=== PATIENT | male | born 1950 | race African-American/Black ===

== ENCOUNTER → 2020-03-14 09:40 | Outpatient (BNVA) | payer SELFPAY | PROVIDERS: PCP Internal Medicine; Visit Provider Internal Medicine Cardiovascular Disease | DX: R06.02 Shortness of breath (principal); I10 Essential (primary) hypertension; E78.5 Hyperlipidemia, unspecified; R94.31 Abnormal electrocardiogram [ECG] [EKG] | CPT/HCPCS: 93005; 99212 ==

== ENCOUNTER → 2020-03-21 07:16 | Outpatient (REF) | payer MEDICARE, SELFPAY ==
--- NOTE | ~2020-03-21 | NM_ITS ---
Lexiscan Myocardial perfusion study Indication: Shortness of breath, hypertension, abnormal EKG, assess for coronary disease and ischemia Technique: The patient was brought in for a Lexiscan perfusion study on 03/21/2020 and was injected 0.4 mg of Lexiscan intravenously. Within a minute of this injection 30 mCi of sestamibi was given intravenously. Images were obtained using the SPECT gamma camera interlaced with the gating device. Images were obtained in supine position. Resting perfusion study was performed on 03/22/2020. Patient was administered 30 mCi of sestamibi intravenously at rest. Images were then obtained in supine position. Total DLP 82mGy-cm. Images were processed with the software and compared side to side in short axis, horizontal long axis and vertical long axis views. Findings: Raw acquisition reviewed. The stress perfusion study showed diminished tracer uptake along the basal inferior wall but otherwise unremarkable. With CT attenuation correction this improves significantly suggestive of diaphragmatic artifact. The gated study shows normal LV systolic function with calculated LVEF of 65%. LV cavity is normal in size. The gated study shows normal wall thickening and contraction of segments. Resting study shows no significant perfusion abnormality. Gating at rest reveals normal wall motion with ejection fraction at 67%. The findings are consistent with no definite reversible or fixed perfusion defects. NM/NM cardiolite stress test Impression: 1. Myocardial perfusion imaging study shows likely normal myocardial perfusion. No definitive evidence of any ischemia or infarction. 2. Gated LVEF is 65% during stress and 67% during rest. 3. Transient ischemic dilatation not present. EKG component of the test reported separately.
--- NOTE | 2020-03-21 07:21 | CA_ITS ---
Transthoracic Echocardiogram Patient (Last, First, Middle): Joshua Barnhart C Gender: Male Date of : 1950 Age: 70 Procedure Date: 03/21/2020 Procedure Type: Transthoracic Echocardiogram Location: OP Height: 175.26 cm Weight: 89.81 kg BSA: 2.06 m2 Heart Rate: bpm BP: 116 / 56 mmHg Boxing Trainer: Referring MD: Vj Villarreal MD Symptoms: R94.31 - Abnormal electrocardiogram [ECG] [EKG] Study Quality: Fair ECG Rhythm: Sinus Conclusions: - The left ventricular systolic function is normal. The visually estimated ejection fraction is between 60-65%. - There is moderate septal and moderate basal asymmetric hypertrophy. - No obvious valvular pathology seen on this study. - Small pericardial effusion seen primarily over the left ventricle. Findings Left Ventricle Normal left ventricular cavity size. The left ventricular systolic function is normal. The visually estimated ejection fraction is between 60-65%. There is no evidence of regional wall motion abnormalities. E/E prime ratio is between 8 and 15 consistent with indeterminate filling pressures. Evidence suggests grade I (mild) diastolic dysfunction. There is moderate septal and moderate basal asymmetric hypertrophy. Right Ventricle Normal right ventricular cavity size and systolic function. Atria The left atrium is normal in size. The right atrium is normal in size. Aortic Valve There is a normal trileaflet aortic valve. There is no aortic valve stenosis. There is trace (trivial) aortic valve regurgitation. Mitral Valve The mitral valve appears normal. There is trace mitral valve regurgitation. There is no mitral valve stenosis. Pulmonic Valve The pulmonic valve was not well visualized. Tricuspid Valve Normal tricuspid valve structure. There is trace tricuspid valve regurgitation. The pulmonary artery systolic pressure is normal. Great Vessels The asc aorta is normal in size. Venous The inferior vena cava is normal in size and collapses greater than 50% with inspiration. Pericardium/Pleural Small pericardial effusion seen primarily over the left ventricle. Prior Study Comparison Changes noted compared to prior study dated: 05/26/2016. See comments on pericardial effusion. Recommendations, Care & Conclusions No obvious valvular pathology seen on this study. Measurements 2D Linear Measurements IVSd: 1.35 0.6-0.9/0.6-1.0 cm LVIDd: 4.56 3.9-5.3/4.2-5.9 cm LVIDd Index: 2.21 2.4-3.2/2.2-3.1 cm/m2 LVIDs: 2.68 2.0-3.6 cm LVPWd: 1.40 0.7-1.1 cm Ao Root: 3.10 2.1-3.5 cm LA Diam: 4.10 2.7-3.8/3.0-4.0 cm LAIDs Index: 1.99 1.5-2.3 cm/m2 LV Mass: 307.63 67-162/88-224 g LV Mass Index: 149.34 43-95/49-115 g/m2 LVOT Diam: 2.10 3.0+(-)1.3 cm 2D Systolic Function EF 4C: 47.70 >55% EF 2C: 52.30 >55% Mitral Valve MV Pk E: 0.81 MV PK A: 1.04 MV Decel Time: 201.00 E/A: 0.80 E'Lateral: 6.00 E'Medial: 5.13 E/E' Med: 15.80 E/E' Lat: 13.50 PHT: 59.00 MVA PHT: 3.73 Decel [place]: 4.04 Aortic Valve AoV Pk Perez: 1.15 AoV Mn Perez: 0.74 AoV VTI: 0.28 AoV Pk Grad: 5.00 Aov Mn Grad: 3.00 YUDITH Cont.VTI: 2.65 LVOT LVOT Pk Perez: 0.83 LVOT Mn Perez: 0.50 LVOT VTI: 0.22 LVOT Pk Grad: 3.00 LVOT Mn Grad: 1.00 LVOT Diam: 2.10 LVOT Area: 3.46 Diastolic Function MV Pk E: 0.81 MV Pk A: 1.04 E/A: 0.80 E'Medial: 5.13 E/E' Med: 15.80 E' Laterial: 6.00 E/E' Lat: 13.50 Tricuspid Valve TR Pk Perez: 1.70 TR Pk Grad: 12.00 RA Press: 3.00 RVSP: 15.00 Great Vessels Aorta Ao Root-2D: 3.10 2.0-3.7 cm Ao Asc: 2.70 2.1-3.4 cm Pulmonary Valve PV Pk Perez: 1.16 Peak PV Grad: 5.00 Updated in Other Vendor System with Status of Final Santos Finley MD electronically signed on 03/24/2020 12:08:14 PM with status of Final
--- NOTE | 2020-03-21 07:23 | CA_ITS ---
Acquisition Time: 2020-03-21 09:23:23 Total Exercise Time: 00:04:03 Test Indications: Abnormal ECG Medications: ATORVASTATIN DOXAZOSIN IRON Protocol: OBED Max HR: 115 BPM 76% of Pred: 151 BPM Max BP: 158/090 mmHG Max Work Load: 5.8 METS Exercise stress test with exercise 4 min 3 sec of Obed protocol with mild sob, no chest dicomfort, isolated PVC and rate related LBBB, with normotensive response to exercise, with nondiagnotic EKG for ischemia. Exercise stopped and pt assisted to sitting position. Testing change to pharmacological stress test while sitting and kicking his legs, without angina, with isolated PACs, with nondiagnostic EKG for ischemia. Nuclear images pending. Test reviewed with Dr Villarreal. Referred By: Vj Vilalrreal Overread By: JYOTHI FUCHS
== END ==
LOC: HO.CARD 07:16
PROVIDERS: PCP Internal Medicine; Visit Provider Internal Medicine Cardiovascular Disease
DX: I10 Essential (primary) hypertension (principal); R06.02 Shortness of breath; R94.31 Abnormal electrocardiogram [ECG] [EKG]; E78.5 Hyperlipidemia, unspecified
CPT/HCPCS: 78452; 93017; 93306; A9500; J0280; J2785

== ENCOUNTER → 2020-04-13 10:47 | Outpatient (BNVA) | payer MEDICARE, SELFPAY | PROVIDERS: PCP Internal Medicine; Visit Provider Nurse Practitioner Family | DX: R06.02 Shortness of breath (principal); I42.2 Other hypertrophic cardiomyopathy; R94.31 Abnormal electrocardiogram [ECG] [EKG]; I10 Essential (primary) hypertension; I45.4 Nonspecific intraventricular block | CPT/HCPCS: 99212 ==

== ENCOUNTER 2024-06-26 16:13 | Inpatient (IN) | payer MEDICARE, MEDICAID, SELFPAY ==
[2024-06-26] VITALS (7 sets, daily range): BP systolic 97–121; BP diastolic 60–76; PULSE 90–116; RESP 12–18; TEMP 36.2–37.3; O2SAT 97–100; BMI 19.5
--- NOTE | ~2024-06-26 | CT_ITS ---
CLINICAL HISTORY: unwitnessed fall CT head without contrast. COMPARISON: None FINDINGS: Mucosal retention cyst present within the left maxillary sinus. Mastoid air cells are clear. No calvarial fracture. Atherosclerotic intracranial vasculature. No evidence for mass or mass effect. No intracranial hemorrhage or abnormal extra-axial fluid collection. Basal ganglia mineralization present bilaterally. Chronic encephalomalacia within the right temporal lobe and lateral right frontal and parietal lobe consistent with a large right MCA territorial infarct. There is associated ex vacuo dilatation of the right lateral ventricle. Basilar cisterns are patent. No hydrocephalus. There are periventricular areas of low attenuation compatible with mild white matter small vessel disease. Posterior fossa appears unremarkable. IMPRESSION: 1. No acute intracranial findings. Specifically, no evidence of intracranial hemorrhage. This document has been electronically signed by: Howard Feliciano MD on 06/26/2024 19:07:20
--- NOTE | ~2024-06-26 | CT_ITS ---
CLINICAL HISTORY: elevated dimer, tachycardic CT angiography of the chest with IV contrast. 3D/MIP post processing reconstructions were performed. COMPARISON: None FINDINGS: Motion limits evaluation of the distal pulmonary arteries. No intraluminal filling defects within the main or lobar pulmonary arteries to suggest pulmonary embolism. No evidence of right heart strain. Visualized thyroid is unremarkable. No supraclavicular or axillary lymphadenopathy. Ascending aorta and main pulmonary artery are normal in caliber. Moderate pericardial effusion measuring 1.3 cm anteriorly. Cardiomegaly. Normal esophagus. No mediastinal lymphadenopathy. No pleural effusion. Minimal atelectasis along the lung bases. Trachea and central airways are clear. No significant bronchial wall thickening. No bronchiectasis. Hepatic cyst measuring 3.0 cm present within the right lobe. Flowing marginal osteophytes along the mid to lower thoracic spine. Normal vertebral body alignment. Vertebral body heights are maintained. No evidence of acute vertebral body injury. [place] right curvature of the midthoracic spine. Visualized bones of the shoulders appear intact. Degenerative changes of the bilateral shoulders. Sternum appears intact. Healed lateral left 5th rib fracture. IMPRESSION: 1. No evidence of pulmonary embolism within the main or lobar pulmonary arteries. Motion limits evaluation of the distal pulmonary arteries. 2. Moderate pericardial effusion. Cardiomegaly with coronary artery atherosclerosis. This document has been electronically signed by: Howard Feliciano MD on 06/26/2024 19:14:52
--- NOTE | ~2024-06-26 | CT_ITS ---
CLINICAL HISTORY: unwitnessed fall L neck pain CT cervical spine without contrast. COMPARISON: None FINDINGS: Straightening of the normal cervical lordosis. Vertebral body heights are maintained. Skull base and intracranial structures appear normal. Mild emphysema of the lung apices. Right upper lobe 3 mm pulmonary nodule (series 18, image 239) calcified plaque present at the carotid bulbs bilaterally. C2-C3: No significant neuroforaminal narrowing or spinal canal stenosis. C3-C4: Uncovertebral joint hypertrophy. Moderate right neural foraminal narrowing. C4-C5: Anterior marginal osteophytes. Facet joint arthrosis. No significant neural foraminal narrowing. C5-C6: Anterior marginal osteophytes. No significant neural foraminal narrowing. C6-C7: Anterior marginal osteophytes. No significant neural foraminal narrowing. IMPRESSION: 1. No evidence of acute injury to the cervical spine. 2. Straightening of the normal cervical lordosis, likely positional This document has been electronically signed by: Howard Feliciano MD on 06/26/2024 19:08:42
--- NOTE | ~2024-06-26 | CT_ITS ---
CLINICAL HISTORY: ? left hip fx on xr Two views of the left tibia and fibula. COMPARISON: XR pelvis and left hip dated 06/26/24 at 17:27 EDT FINDINGS: Contrast present within the urinary bladder. Marte catheter present within the urinary bladder. High-density fluid along the anterior aspect of the urinary bladder likely representing hematoma (series 3, image 52) no evidence of injury to the urinary bladder. Moderate atherosclerotic vascular calcifications. Extensive heterotopic ossification bridging of the superior aspect of the acetabulum and greater trochanter. There is fracturing of the heterotopic ossification along the greater trochanter with resorption along the fracture margins suggesting this is a chronic finding. Femoral head is seated within the acetabulum. Large sclerotic lesion within the posterior column of the acetabulum measuring 1.6 x 1.4 cm likely representing a bone island. Visualized bones of the pelvis appear intact. Left hip joint effusion present. IMPRESSION: 1. Small amount of blood products present along the anterior aspect of the lower pelvis adjacent to the urinary bladder. No evidence of injury to the urinary bladder. No source identified. 2. 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 There is fracturing of this ossification with resorption along the fracture margins suggesting this is a chronic finding. No definite acute fracture identified. Recommend comparison with prior imaging if available. 3. Left hip joint effusion. This document has been electronically signed by: Howard Feliciano MD on 06/26/2024 20:51:07
--- NOTE | ~2024-06-26 | XR_ITS ---
CLINICAL HISTORY: fall low back pain Four views of the lumbar spine. COMPARISON: None FINDINGS: Osteopenia. Evaluation of the lumbar spine on lateral imaging is limited secondary to osteopenia and overlapping structures. Five [id number]-[id number] lumbar type vertebral bodies. Normal vertebral body alignment. Vertebral body heights are maintained. No evidence of acute vertebral body injury. Vertebral disc space heights appear maintained within limits of study. Facet joint arthrosis along the lower lumbar spine. Small marginal osteophytes along the mid to lower lumbar spine. Visualized portions of the bones of the pelvis appear intact. IMPRESSION: 1. Technically limited exam with evaluation of the lumbar spine on lateral imaging obscured secondary to osteopenia and overlapping structures. 2. Within limits of study, no evidence of acute injury to the lumbar spine. 3. Moderate mid to lower lumbar spondylosis. This document has been electronically signed by: Howard Feliciano MD on 06/26/2024 18:44:15
--- NOTE | ~2024-06-26 | XR_ITS ---
CLINICAL HISTORY: fall Single view of the chest. COMPARISON: None FINDINGS: Cardiomegaly. Mild prominence of the central pulmonary vasculature likely exaggerated secondary to supine positioning. No consolidation. No pleural effusion. No pneumothorax. [place] right curvature of the lower thoracic spine. No acute fracture identified. IMPRESSION: 1. No consolidation. 2. Cardiomegaly. This document has been electronically signed by: Howard Feliciano MD on 06/26/2024 18:44:39
--- NOTE | ~2024-06-26 | XR_ITS ---
CLINICAL HISTORY: unwitnessed fall b l hip pain Single view of the pelvis. COMPARISON: None FINDINGS: Pelvic ring appears maintained. Pelvic phleboliths present. Sacrum appears intact. Degenerative changes of the partially visualized lower lumbar spine. Small ossification present along the greater trochanter of the left femur. IMPRESSION: 1. Likely displaced greater trochanteric fracture of the left femur. This document has been electronically signed by: Howard Feliciano MD on 06/26/2024 18:49:08
--- NOTE | ~2024-06-26 | CT_ITS ---
CLINICAL HISTORY: pain, lower abdomen pelvic CT abdomen and pelvis without contrast Comparison: None Findings: Beam hardening artifact and motion artifact throughout the exam. Minor atelectasis or scar at the left lower lung. Segment 2 liver 3.4 cm hypodensity is likely a cyst. Probable benign adenoma 1.8 cm left adrenal gland. Gallbladder and solid organs otherwise unremarkable. Gas and fluid throughout small bowel loops. There are postoperative changes of the small bowel including a patulous segment of small bowel in the pelvis up to 6.3 cm diameter image 70. No bowel wall thickening, pneumoperitoneum, or pneumatosis. Wldysgva-nn-hxayt amount of stool. Normal appendix. Urinary bladder moderately distended. Marte catheter adequately positioned. Small amount of debris within the urinary bladder seen within the contrast column on image 75:3 could be blood clot. In the space of Retzius there is a thin layer of slight hyperdensity best seen on image 81. There is also slight fat induration in the overlying low anterior abdominal wall. This could be acute or chronic. Heterotopic ossification between the left acetabulum and greater trochanter, as well as bilateral obturator regions within the pelvis suggesting prior injury. No acute fracture. Probable benign bone island 1.6 cm left posterior acetabulum. IMPRESSION: 1. In the space of [place]zius, anterior to a moderately distended bladder, there is a thin layer of slight hyperdensity along with similar hyperdensity in the low anterior abdominal wall. If this is acute, this could be hemorrhage. If chronic, this could be scarring. Correlate with pain or trauma in this area recently. 2. Dnalqcgs-zp-ngjfj amount of stool noted along with a nonspecific small-bowel gas and fluid pattern. There could be an ileus. No findings to suggest bowel obstruction. Follow-up as needed. 3. Small amount of debris within the urinary bladder. Possible blood clot. 4. Additional findings as above. This document has been electronically signed by: Yung Parker MD on 06/27/2024 00:33:24
--- NOTE | 2024-06-26 16:35 | ECG_ITS ---
Test Reason : FALL Blood Pressure : */* mmHG Vent. Rate : 115 BPM Atrial Rate : 115 BPM P-R Int : 156 ms QRS Dur : 142 ms QT Int : 366 ms P-R-T Axes : 81 -86 73 degrees QTcB Int : 506 ms Sinus tachycardia Left axis deviation Non-specific intra-ventricular conduction block Possible Lateral infarct , age undetermined Abnormal ECG When compared with ECG of 28-Apr-2016 14:38, Questionable change in QRS duration Borderline criteria for Lateral infarct are now Present Referred By: Rosa M Hugo Electronically Signed By:
--- NOTE | 2024-06-26 16:38 | ED.FALL ---
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 Per facility, RN was called to patient's room and on arrival found patient lying on the floor on his left side with his right leg towards his chest. He was noted to have pain to the right hip and leg, was reportedly screaming in pain however was unable to describe the incident due to his dementia. Unknown down time. Takes baby aspirin daily. Not on anticoagulation. Patient is bed bound at baseline. On arrival in the ED, patient reports pain to bilateral hips, more so to the left. He also endorses left-sided neck pain. Presents in cervical collar. He tells me that he recalls the fall, does not believe he struck his head however history is quite limited due to his baseline dementia. Related Data Home Medications ?Medication ?Instructions ?Recorded ?Confirmed cholecalciferol (vitamin D3) 25 25 mcg PO DAILY 03/14/20 06/26/24 mcg (1,000 unit) capsule acetaminophen 325 mg tablet 650 mg PO Q6H PRN Pain (Scale 06/26/24 06/27/24 (Tylenol) Score 1-3) amlodipine 10 mg tablet 10 mg PO DAILY 06/26/24 06/27/24 baclofen 10 mg tablet 10 mg PO TID 06/26/24 06/27/24 carvedilol 3.125 mg tablet 3.125 mg PO BID 06/26/24 06/26/24 docusate sodium 100 mg capsule 100 mg PO DAILY 06/26/24 06/27/24 (Colace) mirtazapine 7.5 mg tablet 7.5 mg PO DAILY 06/26/24 06/27/24 risperidone 0.5 mg tablet 0.5 mg PO BID 06/26/24 06/27/24 rosuvastatin 40 mg tablet 40 mg PO BEDTIME 06/26/24 06/27/24 tamsulosin 0.4 mg capsule 0.8 mg PO DAILY 06/26/24 06/26/24 thiamine HCl (vitamin B1) 100 mg 100 mg PO DAILY 06/26/24 06/26/24 tablet tramadol 50 mg tablet 50 mg PO Q8H PRN Pain (Scale Score 06/26/24 06/27/24 4-6) aspirin 81 mg tablet,delayed 81 mg PO DAILY 06/27/24 06/27/24 release bisacodyl 10 mg rectal suppository 10 mg IN Q8H PRN Constipation 06/27/24 06/27/24 magnesium hydroxide 400 mg/5 mL 30 ml PO DAILY PRN Constipation 06/27/24 06/27/24 oral suspension (Milk of Magnesia) multivitamin 1 tab PO DAILY 06/27/24 06/27/24 ondansetron HCl 4 mg tablet 4 mg PO Q4H PRN Nausea And Vomiting 06/27/24 06/27/24 psyllium husk 3 gram/3 gram oral 3 g PO DAILY Constipation 06/27/24 06/27/24 powder sodium phosphates 19 gram-7 118 ml IN DAILY PRN Constipation 06/27/24 06/27/24 gram/118 mL enema (Fleet Enema) Allergies Allergy/AdvReac Type Severity Reaction Status Date / Time No Known Allergies Allergy Verified 06/26/24 16:31 [No Known Allergies*] Review of Systems Review of Systems: Yes all other systems are reviewed and are negative PMFSH Past Medical History Source: old records reviewed and nursing notes reviewed Medical History Hyperlipidemia Abnormal EKG HTN (hypertension) Prostate cancer Bowel obstruction Family History Family History Mother No problems noted. Father HTN (hypertension) Social History Social History Alcohol intake: never Patient Tobacco Use Status: Never used Tobacco Smoked in Last 30 Days: No Use of substances other than those prescribed or required for medical reasons: No Advance Directives: No Advance Directives Information Provided: No Do you have a plan to hurt others: No Plan Nutrition Risks: No Nutritional Risk Physical Exam Vital Signs: Vital Signs: Last Vital Signs Temp 98.7 F 06/27/24 06:01 Pulse 110 H 06/27/24 06:01 Resp 14 06/27/24 06:01 BP 116/62 06/27/24 06:01 Pulse Ox 98 06/27/24 06:01 O2 Del Method Room Air 06/27/24 06:01 BMI result Body Mass Index 19.5 Tachycardic, vitals otherwise WNL General: chronically ill appearing, cachectic Skin: Warm, dry, intact. No rashes or lesions. Head: Normocephalic, atraumatic. no battles sign, no raccoon eyes, no palpable skull fx or hematoma EENT: Hearing is intact b/l. Conjunctiva clear. PERRLA. EOM intact. Moist mucous membranes.? Neck: +in cervical collar Cardiac: Chest wall symmetric. RRR Lungs: Normal respiratory effort without accessory muscle use. CTA bilaterally Abdomen: Soft, non-tender, non-distended. no rebound tenderness or guarding Back: +ttp along midline lumbar spine without step off deformity. no paraspinal tenderness. Ext: +extremities contracted, LE atrophic, noted ttp over both hips (L>R) without palpable deformity or crepitus. no overlying bruising/ skin changes. Neuro: alert, oriented to self Course Course Course Narrative: 1800 -- CBC without leukocytosis or left shift. Normocytic anemia, h&h above transfusion threshold. chemistry without acute electrolyte abnormality requiring intervention. renal function appears to be around baseline CKD. random glucose 197. liver function and lipase wnl. ck wnl at 97 - no rhabdo. trop wnl at 5.7 however will repeat for delta. EKG showing sinus tachycardia, rate of 115. UA positive for nitrites, large leukocyte esterase, 4+ urine bacteria, 0-2 squamous epithelial cells. Will treat for urinary tract infection. D-dimer elevated to 378. Age adjusted D-dimer cutoff 365. as patient is bed bound and not on AC, CT angio chest ordered to r/o PE. CT head/c spine pending. xr pelvis, lumbar spine and chest pending. > IV Tylenol ordered for discomfort 1915 -- cxr without infiltrate or consolidation. xr lumbar spine without acute compression fracture. pelvic xr concerning for left trochanter fracture. Given xr limited by patient's positioning, unable to tell if this is a true fracture. Spoke with ortho ORALIA Lucero who has recommended CT left hip for further characterization. this has been ordered. OBS negative. CT head/brain without bleed. ct cervical spine without fracture. cervical collar removed. > Patient stable at the end of my shift. Sign out given to Shahnaz BARTON pending CTA chest, ct hip, and disposition. Reevaluation(s) Reevaluation #1: I Dawna Marte PA-C have accepted care of the patient and signed out pending imaging, orthopedic consult and final disposition at this point patient found to have a urinary tract infection, he is afebrile, he has a CTA of the chest pending, he has a CT of the hip pending given there was concern for hip fracture, the x-ray read with somewhat indeterminate. We are having to medicate the patient and tie his legs together in order for him to have the CT scan; secondary to his lower extremity contractures. the patient was given a p.o. dose of Ceftin, this may not be adequate coverage given he has a chronic indwelling Marte, I am adding on blood cultures, lactic, his temp is increasing it is 99.3 rectally, we will start ceftriaxone, we do not have prior urine cultures for guidance on resistance pattern. CT hip pelvis: MPRESSION: 1. Small amount of blood products present along the anterior aspect of the lower pelvis adjacent to the urinary bladder. No evidence of injury to the urinary bladder. No source identified. 2. 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 There is fracturing of this ossification with resorption along the fracture margins suggesting this is a chronic finding. No definite acute fracture identified. Recommend comparison with prior imaging if available. 3. Left hip joint effusion. CTA chest:MPRESSION: 1. No evidence of pulmonary embolism within the main or lobar pulmonary arteries. Motion limits evaluation of the distal pulmonary arteries. 2. Moderate pericardial effusion. Cardiomegaly with coronary artery atherosclerosis. Reevaluation #2: Speaking with the hospitalist about admission, Dr. Leos, he wants a CT abdomen and pelvis CT abdomen and pelvis:IMPRESSION: 1. In the space of Retzius, anterior to a moderately distended bladder, there is a thin layer of slight hyperdensity along with similar hyperdensity in the low anterior abdominal wall. If this is acute, this could be hemorrhage. If chronic, this could be scarring. Correlate with pain or trauma in this area recently. 2. Idkxtyry-kv-zhwhd amount of stool noted along with a nonspecific small-bowel gas and fluid pattern. There could be an ileus. No findings to suggest bowel obstruction. Follow-up as needed. 3. Small amount of debris within the urinary bladder. Possible blood clot. 4. Additional findings as above. Consultations Consultation #1: per Dr. Finley .... Nothing to do, order an echo for the morning Time: 21:56 Consultation #2: I touched base again with the Aristides Quin from orthopedic service, there were no acute fractures, nothing to do. The patient can follow up with the orthopedic service as needed as an outpatient Medications Administered Generic Name Dose Route Start Last Admin Trade Name Freq PRN Reason Stop Dose Admin Risperidone 0.5 mg 06/27/24 01:15 06/27/24 04:21 Risperidone 0.5 Mg Tablet PO Not Given BID DIXON Discontinued Medications Generic Name Dose Route Start Last Admin Trade Name Freq PRN Reason Stop Dose Admin Ceftriaxone Sodium 2 gm 06/26/24 22:13 06/26/24 22:38 Ceftriaxone Sodium 2 Gm Vial IVPUSH 06/26/24 22:14 2 gm ONCE ONE Administration Cefuroxime Axetil 250 mg 06/26/24 18:04 06/26/24 18:09 Cefuroxime Axetil 250 Mg Tablet PO 06/26/24 18:05 250 mg ONCE ONE Administration Acetaminophen 1,000 mg in 100 mls @ 400 mls/hr 06/26/24 18:01 06/26/24 18:50 Ofirmev IV 06/26/24 18:15 Infused ONCE ONE Infusion Iohexol 100 ml 06/26/24 18:01 06/26/24 18:03 Iohexol 350 Mg/Ml 100 Ml Infus..Btl IV 06/26/24 18:02 65 ml ONCE ONE Administration Midazolam HCl 4 mg 06/26/24 19:15 06/26/24 19:20 Midazolam Hcl 2 Mg/2 Ml Vial IVPUSH 06/26/24 19:16 4 mg ONCE ONE Administration Medical Decision Making Medical Decision Making MDM Narrative: 74-year-old male with pmhx significant for anemia, CKD, HTN, HLD, 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 Patient is tachycardic, vitals are otherwise WNL. Differential diagnosis includes hip fracture, dislocation, contusion, MSK sprain/strain, vertebral compression fracture, cervical fracture/subluxation, ICH, skull frature Concern for ACS v arrhythmia v PE. PERC 2 (tachycardia, age), urinary tract infection, pneumonia, rhabdomyolysis Plan for labs, trop/ddimer, UA, CXR, lumbar xr, xr hips/pelvis, EKG, re-valuation. Differential Diagnosis Differential Diagnoses: The differential diagnosis associated with the presentation includes As above Admission/Observation Consideration of admission/observation: Escalation of care including admission/observation considered patient admitted to medicine Consult Healthcare Provider Management of the patient was discussed with: [employer] Department Supervisor (fernando lucero) Lab Data MDM Lab Attestation statement: I reviewed the patient's lab results. as above. 06/27/24 04:42 06/27/24 04:42 Labs: Lab Results 06/26/24 06/26/24 06/26/24 Range/Units 16:57 17:06 19:02 WBC 8.8 (4.8-10.8) X10*3/uL RBC 3.55 L (4.60-5.80) X10*6/uL Hgb 9.5 L (14.0-18.0) g/dl Hct 29.3 L (42.0-52.0) % MCV 82.5 (80.0-98.0) fL MCH 26.8 L (27.0-33.0) pg MCHC 32.4 (31.0-36.0) g/dl RDW 16.9 H (11.0-16.0) % Plt Count 339 (160-400) X10*3/uL MPV 9.9 (9.4-12.4) fL Immature Gran % (Auto) 0.3 (0.0-0.4) % Neut % (Auto) 73.8 H (45-73) % Lymph % (Auto) 14.3 L (20-40) % [place] % (Auto) 8.4 (2-11) % Eos % (Auto) 2.7 (0-4) % Baso % (Auto) 0.5 (0-2) % Lymph # (Auto) 1.3 (1.2-4.9) X10*3/uL [place] # (Auto) 0.7 (0.1-1.2) X10*3/uL Eos # (Auto) 0.2 (0.0-0.4) X10*3/uL Baso # (Auto) 0.0 (0.0-0.2) X10*3/uL Abs Immat Gran (auto) 0.03 (0.00-0.03) X10*3/uL Absolute Neuts (auto) 6.5 (2.0-8.3) x10*3/uL Absolute Nucleated RBC 0.000 (0.0-0.012) X10*3/uL Nucleated RBC % (auto) 0.0 (0.0-0.2) /100WBC D-Dimer High Sensitivty 378 NG/ML Sodium 138 (135-145) mmol/L Potassium 4.1 (3.3-5.1) mmol/L Chloride 107 (96-108) mmol/L Carbon Dioxide 21 L (22-29) mmol/L Anion Gap 14 (12-20) BUN 21 H (9-16) mg/dL Creatinine 0.70 (0.5-1.4) mg/dL Estim Creat Clear Calc 79.4 Estimated GFR > 60 Random Glucose 197 H (60-115) mg/dL Lactic Acid (0.5-2.0) mmol/L Calcium 9.6 (8.4-10.2) mg/dL Magnesium 2.1 (1.6-2.6) mg/dL Total Bilirubin 0.3 (0.0-1.0) mg/dL AST 34 (5-37) U/L ALT 51 H (0-40) U/L Alkaline Phosphatase 109 (39-117) U/L Total Creatine Kinase 97 (38-174) U/L Troponin I High Sens 5.7 (<3.5-35.0) ng/L Total Protein 6.6 (6.5-8.0) g/dL Albumin 3.4 L (3.5-5.0) g/dL Lipase 15 (8-78) U/L Urine Color Dark Yellow Urine Appearance Turbid Urine pH >= 9.0 (5.0-9.0) Ur Specific [place] 1.025 (1.005-1.025) Urine Protein >=1000 (4+) H (Neg-Trace) mg/dL Urine Glucose (UA) 250 H (Negative) mg/dL Urine Ketones Negative (Negative) mg/dL Urine Blood Negative (Negative) Urine Nitrite Positive H (Negative) Ur Leukocyte Esterase Large (3+) H (Negative) Urine RBC 0-2 (0-2) /HPF Urine WBC 0-5 (0-5) /HPF Ur Squamous Epith Cells 0-2 (0-2) /HPF Other Crystals Present Urine Bacteria 4+ (None Seen) Hyaline Casts 0-2 (0-2) /LPF Stool Occult Blood NEGATIVE (NEGATIVE) 06/26/24 Range/Units 22:34 WBC (4.8-10.8) X10*3/uL RBC (4.60-5.80) X10*6/uL Hgb (14.0-18.0) g/dl Hct (42.0-52.0) % MCV (80.0-98.0) fL MCH (27.0-33.0) pg MCHC (31.0-36.0) g/dl RDW (11.0-16.0) % Plt Count (160-400) X10*3/uL MPV (9.4-12.4) fL Immature Gran % (Auto) (0.0-0.4) % Neut % (Auto) (45-73) % Lymph % (Auto) (20-40) % [place] % (Auto) (2-11) % Eos % (Auto) (0-4) % Baso % (Auto) (0-2) % Lymph # (Auto) (1.2-4.9) X10*3/uL [place] # (Auto) (0.1-1.2) X10*3/uL Eos # (Auto) (0.0-0.4) X10*3/uL Baso # (Auto) (0.0-0.2) X10*3/uL Abs Immat Gran (auto) (0.00-0.03) X10*3/uL Absolute Neuts (auto) (2.0-8.3) x10*3/uL Absolute Nucleated RBC (0.0-0.012) X10*3/uL Nucleated RBC % (auto) (0.0-0.2) /100WBC D-Dimer High Sensitivty NG/ML Sodium (135-145) mmol/L Potassium (3.3-5.1) mmol/L Chloride (96-108) mmol/L Carbon Dioxide (22-29) mmol/L Anion Gap (12-20) BUN (9-16) mg/dL Creatinine (0.5-1.4) mg/dL Estim Creat Clear Calc Estimated GFR Random Glucose (60-115) mg/dL Lactic Acid 1.6 (0.5-2.0) mmol/L Calcium (8.4-10.2) mg/dL Magnesium (1.6-2.6) mg/dL Total Bilirubin (0.0-1.0) mg/dL AST (5-37) U/L ALT (0-40) U/L Alkaline Phosphatase (39-117) U/L Total Creatine Kinase (38-174) U/L Troponin I High Sens (<3.5-35.0) ng/L Total Protein (6.5-8.0) g/dL Albumin (3.5-5.0) g/dL Lipase (8-78) U/L Urine Color Urine Appearance Urine pH (5.0-9.0) Ur Specific [place] (1.005-1.025) Urine Protein (Neg-Trace) mg/dL Urine Glucose (UA) (Negative) mg/dL Urine Ketones (Negative) mg/dL Urine Blood (Negative) Urine Nitrite (Negative) Ur Leukocyte Esterase (Negative) Urine RBC (0-2) /HPF Urine WBC (0-5) /HPF Ur Squamous Epith Cells (0-2) /HPF Other Crystals Urine Bacteria (None Seen) Hyaline Casts (0-2) /LPF Stool Occult Blood (NEGATIVE) Independent Interpretation I performed an independent interpretation of an: EKG, Plain X-Ray and CT Scan Interpretation: cxr with cardiomegaly, no infiltrate or consolidation xr lumbar spine without obvious compression fx xr pelvis with possible fracture to left trochanter cta chest without PE ct head/brain without acute bleed ct cervical spine without fracture Radiology Impression Discussion of test interpretation with radiology: I have reviewed the radiologist's reading. Radiologist Impression: Procedure(s): XR pelvis 1-2V Accession Number(s): [id number] cc: Physician,Unknown ; Rosa M Hugo~ CLINICAL HISTORY: unwitnessed fall b l hip pain Single view of the pelvis. COMPARISON: None FINDINGS: Pelvic ring appears maintained. Pelvic phleboliths present. Sacrum appears intact. Degenerative changes of the partially visualized lower lumbar spine. Small ossification present along the greater trochanter of the left femur. IMPRESSION: 1. Likely displaced greater trochanteric fracture of the left femur. This document has been electronically signed by: Howard Feliciano MD on 06/26/2024 18:49:08 Procedure(s): XR lumbar spine 2-3V Accession Number(s): [id number] cc: Physician,Unknown ; Rosa M Hugo~ CLINICAL HISTORY: fall low back pain Four views of the lumbar spine. COMPARISON: None FINDINGS: Osteopenia. Evaluation of the lumbar spine on lateral imaging is limited secondary to osteopenia and overlapping structures. Five zpt-xek-yxqryqu lumbar type vertebral bodies. Normal vertebral body alignment. Vertebral body heights are maintained. No evidence of acute vertebral body injury. Vertebral disc space heights appear maintained within limits of study. Facet joint arthrosis along the lower lumbar spine. Small marginal osteophytes along the mid to lower lumbar spine. Visualized portions of the bones of the pelvis appear intact. IMPRESSION: 1. Technically limited exam with evaluation of the lumbar spine on lateral imaging obscured secondary to osteopenia and overlapping structures. 2. Within limits of study, no evidence of acute injury to the lumbar spine. 3. Moderate mid to lower lumbar spondylosis. Procedure(s): XR chest 1V Accession Number(s): [id number] cc: Physician,Unknown ; Rosa M Hugo~ CLINICAL HISTORY: fall Single view of the chest. COMPARISON: None FINDINGS: Cardiomegaly. Mild prominence of the central pulmonary vasculature likely exaggerated secondary to supine positioning. No consolidation. No pleural effusion. No pneumothorax. [place] right curvature of the lower thoracic spine. No acute fracture identified. IMPRESSION: 1. No consolidation. 2. Cardiomegaly. Procedure(s): CT head/brain wo IV con Accession Number(s): [id number] cc: Physician,Unknown ; Rosa M Hugo~ Report Number: [id number]: Total DLP = 1337.00 mGy-cm CLINICAL HISTORY: unwitnessed fall CT head without contrast. COMPARISON: None FINDINGS: Mucosal retention cyst present within the left maxillary sinus. Mastoid air cells are clear. No calvarial fracture. Atherosclerotic intracranial vasculature. No evidence for mass or mass effect. No intracranial hemorrhage or abnormal extra-axial fluid collection. Basal ganglia mineralization present bilaterally. Chronic encephalomalacia within the right temporal lobe and lateral right frontal and parietal lobe consistent with a large right MCA territorial infarct. There is associated ex vacuo dilatation of the right lateral ventricle. Basilar cisterns are patent. No hydrocephalus. There are periventricular areas of low attenuation compatible with mild white matter small vessel disease. Posterior fossa appears unremarkable. IMPRESSION: 1. No acute intracranial findings. Specifically, no evidence of intracranial hemorrhage. Procedure(s): CT angio chest PE protocol Accession Number(s): [id number] cc: Physician,Unknown ; Rosa M Hugo~ Report Number: [id number]: Total DLP = 0.00 mGy-cm CLINICAL HISTORY: elevated dimer, tachycardic CT angiography of the chest with IV contrast. 3D/MIP post processing reconstructions were performed. COMPARISON: None FINDINGS: Motion limits evaluation of the distal pulmonary arteries. No intraluminal filling defects within the main or lobar pulmonary arteries to suggest pulmonary embolism. No evidence of right heart strain. Visualized thyroid is unremarkable. No supraclavicular or axillary lymphadenopathy. Ascending aorta and main pulmonary artery are normal in caliber. Moderate pericardial effusion measuring 1.3 cm anteriorly. Cardiomegaly. Normal esophagus. No mediastinal lymphadenopathy. No pleural effusion. Minimal atelectasis along the lung bases. Trachea and central airways are clear. No significant bronchial wall thickening. No bronchiectasis. Hepatic cyst measuring 3.0 cm present within the right lobe. Flowing marginal osteophytes along the mid to lower thoracic spine. Normal vertebral body alignment. Vertebral body heights are maintained. No evidence of acute vertebral body injury. [place] right curvature of the midthoracic spine. Visualized bones of the shoulders appear intact. Degenerative changes of the bilateral shoulders. Sternum appears intact. Healed lateral left 5th rib fracture. IMPRESSION: 1. No evidence of pulmonary embolism within the main or lobar pulmonary arteries. Motion limits evaluation of the distal pulmonary arteries. 2. Moderate pericardial effusion. Cardiomegaly with coronary artery atherosclerosis. Procedure(s): CT cervical spine wo IV con Accession Number(s): [id number] cc: Physician,Unknown ; Rosa M Hugo~ Report Number: [id number]: Total DLP = 0.00 mGy-cm CLINICAL HISTORY: unwitnessed fall L neck pain CT cervical spine without contrast. COMPARISON: None FINDINGS: Straightening of the normal cervical lordosis. Vertebral body heights are maintained. Skull base and intracranial structures appear normal. Mild emphysema of the lung apices. Right upper lobe 3 mm pulmonary nodule (series 18, image 239) calcified plaque present at the carotid bulbs bilaterally. C2-C3: No significant neuroforaminal narrowing or spinal canal stenosis. C3-C4: Uncovertebral joint hypertrophy. Moderate right neural foraminal narrowing. C4-C5: Anterior marginal osteophytes. Facet joint arthrosis. No significant neural foraminal narrowing. C5-C6: Anterior marginal osteophytes. No significant neural foraminal narrowing. C6-C7: Anterior marginal osteophytes. No significant neural foraminal narrowing. IMPRESSION: 1. No evidence of acute injury to the cervical spine. 2. Straightening of the normal cervical lordosis, likely positional This document has been electronically signed by: Howard Feliciano MD on 06/26/2024 19:08:42 Independent Historian Clinical information obtained from an independent historian. History obtained from or confirmed by: EMS Prescription Management I considered prescription management with: Pain Medication and Antibiotic Chronic Conditions Patient?s care impacted by: Other Social Determinants Patient?s care significantly limited by Social Determinants of Health including: Other Social Determinant of Health Critical Care Time Critical Care Time Critical Care Time: Yes Total Critical Care Time: 31 Attestation: Critical care time in the amount of 31 minutes has been provided to the patient in terms of direct patient care, frequent reevaluation, consultation with ortho, review and interpretation of medical data and results, and management of potentially life-threatening conditions. This is all outside of any medical procedures. Discharge Plan Discharge Clinical Impression: Unwitnessed fall, Urinary tract infection, Pericardial effusion Patient Disposition: Admitted As Inpatient
--- NOTE | 2024-06-26 16:38 | PC.NURSE ---
YESENIA from SNF. Patient A&O x 2. Patient had unwitnessed fall from bed. Denies LOC, denies dizziness, denies headache. c/o pain in neck, left hip, and tailbone. ?headstrike. No thinners. C-collar on arrival. Patient tachycardic but all other vitals stable. NSR on cardiac monitor technician. Patient has madden cath 16fr 30ml, urine is dark yellow cloudy and has foul odor. Patient bilateral legs contracted per baseline. Provider in to see patient, plan of care on going
[2024-06-26 17:02] LABS: MANUAL DIFF FLAG NO
[2024-06-26 17:04] LABS: Basophils Percent Auto 0.5 % (0-2); Eosinophils Absolute Auto 0.2 X10*3/uL (0.0-0.4); Eosinophils Percent Auto 2.7 % (0-4); Hematocrit 29.3 % (42.0-52.0); Hemoglobin 9.5 g/dl (14.0-18.0); Imm Gran Abs Auto 0.03 X10*3/uL (0.00-0.03); Imm Gran Pct Auto 0.3 % (0.0-0.4); Lymphocytes Absolute Auto 1.3 X10*3/uL (1.2-4.9); Lymphocytes Percent Auto 14.3 % (20-40); Mean Corpuscular HGB Conc 32.4 g/dl (31.0-36.0); Mean Corpuscular Hemoglobin 26.8 pg (27.0-33.0); Mean Corpuscular Volume 82.5 fL (80.0-98.0); Mean Platelet Volume 9.9 fL (9.4-12.4); Monocytes Absolute Auto 0.7 X10*3/uL (0.1-1.2); Monocytes Percent Auto 8.4 % (2-11); Neutrophils Absolute Auto 6.5 x10*3/uL (2.0-8.3); Neutrophils Percent Auto 73.8 % (45-73); Platelet Count 339 X10*3/uL (160-400); Red Blood Count 3.55 X10*6/uL (4.60-5.80); Red Cell Distribution Width 16.9 % (11.0-16.0); White Blood Count 8.8 X10*3/uL (4.8-10.8)
[2024-06-26 17:06] LABS: Appearance Urine Turbid; Color Urine Dark Yellow; Glucose Urine UA 250 mg/dL (Negative); Leukocyte Esterase Urine Large (3+) (Negative); Nitrite Urine Positive (Negative); PH >= 9.0 (5.0-9.0); Specific Gravity - Urine 1.025 (1.005-1.025); UMIC TRIGGER UACC YES; Urine Blood Negative (Negative); Urine Ketones Negative (Negative); Urine Protein >=1000 (4+) mg/dL (Neg-Trace)
[2024-06-26 17:18] LABS: Alanine Aminotransferase 51 U/L (0-40); Albumin Level 3.4 g/dL (3.5-5.0); Alkaline Phosphatase 109 U/L (39-117); Anion Gap 14 (12-20); Aspartate Amino Transferase 34 U/L (5-37); Bilirubin Total 0.3 mg/dL (0.0-1.0); Blood Urea Nitrogen 21 mg/dL (9-16); Calcium 9.6 mg/dL (8.4-10.2); Carbon Dioxide 21 mmol/L (22-29); Chloride 107 mmol/L (96-108); Creatinine Clr Calc Pharmacy 79.4; Estimated Glomerular Filt Rate > 60; Glucose Random 197 mg/dL (60-115); Lipase 15 U/L (8-78); Magnesium 2.1 mg/dL (1.6-2.6); Potassium 4.1 mmol/L (3.3-5.1); Sodium 138 mmol/L (135-145); Total Protein 6.6 g/dL (6.5-8.0)
[2024-06-26 17:21] LABS: D Dimer High Sensitivity 378 NG/ML
[2024-06-26 17:23] LABS: RBC Urine 0-2 /HPF (0-2); UACC Culture Trigger YES; WBC Urine 0-5 /HPF (0-5)
[2024-06-26 17:24] LABS: Bacteria Urine 4+ (None Seen); Hyaline Casts Urine 0-2 /LPF (0-2); Other Crystals Urine Present; Squamous Epithelial Cell Urine 0-2 /HPF (0-2)
[2024-06-26 17:25] LABS: Troponin-I High Sensitivity 5.7 ng/L (<3.5-35.0)
[2024-06-26] MEDS: iohexoL 350 MG/ML 100 ML INFUS..BTL IV (18:03)
[2024-06-26] MEDS: Acetaminophen 1,000 MG/100 ML PIGGYBACK 400 MG IV (18:08)
[2024-06-26] MEDS: cefuroxime axetiL 250 MG TABLET PO (18:09)
--- NOTE | 2024-06-26 18:18 | PC.NURSE ---
Patient remains in c collar. Pelvis and chest xray complete, results pending. Chest CT completed, pending results. Patient has uti started on ceftin, patient afebrile. Iv tylenol for pain currently running, effectiveness pending.
[2024-06-26 19:11] LABS: OBS Int Ctl Valid YES
[2024-06-26 19:13] LABS: OBS1 NEGATIVE (NEGATIVE)
[2024-06-26] MEDS: Midazolam HCl 2 MG/2 ML VIAL 4 MG IVPUSH (19:20)
--- NOTE | 2024-06-26 20:10 | PC.NURSE ---
pt is resting comfortably on stretcher in no apparent distress, on cardiac monitoring, respirations even and nonlabored. waiting for imaging results. plan of care ongoing.
--- NOTE | 2024-06-26 21:35 | MHC.EDTECH ---
Facility called and is faxing HCP and [facility] information. HCP is contact.
--- NOTE | 2024-06-26 22:23 | PC.NURSE ---
pct in room attempting lab draw now for blood cultures/lactic.
[2024-06-26] MEDS: cefTRIAXone sodium 2 GM VIAL IVPUSH (22:38)
[2024-06-26 22:58] LABS: Lactic Acid 1.6 mmol/L (0.5-2.0)
[2024-06-27] VITALS (8 sets, daily range): BP systolic 112–144; BP diastolic 55–76; PULSE 98–117; RESP 14–17; TEMP 36.5–37.1; O2SAT 98–100; BMI 19.5
--- NOTE | 2024-06-27 00:49 | PC.NURSE ---
pt cleaned up and linens changed, repositioned in the bed. denies any acute pain or distress. on desk monitor, call morgan within reach. plan of care ongoing.
--- NOTE | 2024-06-27 01:45 | PC.NURSE ---
this rn removed pt previous madden due to previous madden leaking urine. 20f placed at this time, pt tolerated well. 50cc yellow urine voided
[2024-06-27 04:49] LABS: MANUAL DIFF FLAG NO
--- NOTE | 2024-06-27 04:55 | P.HPHOSP_ITS ---
History of Present Illness Date of Service: 06/27/24 Chief Complaint: FAll 74-year-old male with a past medical history, CKD, anemia, prostate cancer, CVA with residual hemiplegia, chronic contraction of the extremities, chronic indwelling Marte, [facility] resident presented to the hospital with a chief complaint of fall. Patient is alert and awake, does not appear to be in distress. Lying in the bed comfortably. Patient mentioned that he had a fall prior to coming to the hospital. Most of the history obtained from the records and the staff. Reportedly patient had an unwitnessed fall from the bed at the [facility]. Subsequently brought him to the hospital for further evaluation. Patient denies any chest pain or palpitations. Denies any cough or sputum production. Review of all other systems is limited. ER course: Per ER team, patient has chronic contractures, bed-bound, exam limited, CT head and CT C-spine showed no acute findings. CT hip showed hydropic ossification bridging the superior margin of the acetabulum and greater trochanter there is a fracturing of this ossification suggesting chronic findings. Also noted left joint effusion. CT also showed small amount of blood products in the lower pelvis adjacent to the urinary bladder. ER team discussed with orthopedics team who suggested no acute intervention. CTA chest no evidence of PE but noted to have moderate amount of pericardial effusion. Discussed with cardiology who suggested admission and echocardiogram in a.m. Urinalysis abnormal consistent with UTI. Patient Marte catheter was changed in the ER. Given ceftriaxone [facility] Medical History Hyperlipidemia Abnormal EKG HTN (hypertension) Prostate cancer Bowel obstruction Family History Mother No problems noted. Father HTN (hypertension) Social History Alcohol intake: never Patient Tobacco Use Status: Never used Tobacco Smoked in Last 30 Days: No Use of substances other than those prescribed or required for medical reasons: No Advance Directives: No Advance Directives Information Provided: No Do you have a plan to hurt others: No Plan Nutrition Risks: No Nutritional Risk Meds Allergies Allergy/AdvReac Type Severity Reaction Status Date / Time No Known Allergies Allergy Verified 06/26/24 16:31 [No Known Allergies*] Active Medications: Current Medications Acetaminophen (Acetaminophen 325 Mg Tablet) 650 mg PO Q6H PRN PRN Reason: Pain, Mild 1-3,fever,headache Baclofen (Baclofen 10 Mg Tablet) 10 mg PO TID [facility] Calcium Carbonate (Calcium Carbonate 750 Mg Tab.Chew) 750 mg PO Q4H PRN PRN Reason: Heartburn Carvedilol (Carvedilol 3.125 Mg Tablet) 3.125 mg PO BIDWM [place]; Protocol Ceftriaxone Sodium (Ceftriaxone Sodium 1 Gm Vial) 1 gm IVPUSH Q24H [facility] Heparin Sodium (Porcine) (Heparin Sodium,Porcine 5,000 Unit/Ml Vial) 5,000 unit SUBCUT Q8H [facility] Magnesium Hydroxide (Milk Of Magnesia 30 Ml Oral.Susp) 30 ml PO DAILY PRN PRN Reason: Constipation Melatonin (Melatonin 3 Mg Tablet) 6 mg PO BEDTIME PRN PRN Reason: Insomnia Mirtazapine (Mirtazapine 7.5 Mg Tablet) 7.5 mg PO BEDTIME [facility] Risperidone (Risperidone 0.5 Mg Tablet) 0.5 mg PO BID [facility] Last Admin: 06/27/24 04:21 Dose: Not Given Sodium Chloride (0.9 % Sodium Chloride Flush 3 Ml Syringe) 3 ml IVFLUSH QSHIFT [facility] Tamsulosin HCl (Tamsulosin Hcl 0.4 Mg Capsule) 0.8 mg PO DAILY [facility] Thiamine HCl (Thiamine Hcl 100 Mg Tablet) 100 mg PO DAILY [facility] Tramadol HCl (Tramadol Hcl 50 Mg Tablet) 50 mg PO Q8H PRN PRN Reason: Pain (Scale Score 4-6) Home Medications ?Medication ?Instructions ?Recorded ?Confirmed ?Last Taken ?Type cholecalciferol (vitamin D3) 25 25 mcg PO DAILY 03/14/20 06/26/24 Unknown History mcg (1,000 unit) capsule acetaminophen 325 mg tablet 650 mg PO Q6H PRN Pain (Scale 06/26/24 06/26/24 Unknown History (Tylenol) Score 1-3) amlodipine 10 mg tablet 10 mg PO DAILY 06/26/24 06/26/24 Unknown History aspirin 81 mg tablet 81 mg PO DAILY 06/26/24 06/26/24 Unknown History baclofen 10 mg tablet 10 mg PO TID 06/26/24 06/26/24 Unknown History carvedilol 3.125 mg tablet 3.125 mg PO BID 06/26/24 06/26/24 Unknown History docusate sodium 100 mg capsule 100 mg PO 1XD 06/26/24 06/26/24 Unknown History (Colace) mirtazapine 7.5 mg tablet 7.5 mg PO DAILY 06/26/24 06/26/24 Unknown History risperidone 0.5 mg tablet 0.5 mg PO 2XD 06/26/24 06/26/24 Unknown History rosuvastatin 40 mg tablet 40 mg PO DAILY 06/26/24 06/26/24 Unknown History tamsulosin 0.4 mg capsule 0.8 mg PO DAILY 06/26/24 06/26/24 Unknown History thiamine HCl (vitamin B1) 100 mg 100 mg PO DAILY 06/26/24 06/26/24 Unknown History tablet tramadol 50 mg tablet 50 mg PO Q8H PRN Pain (Scale Score 06/26/24 06/26/24 Unknown History 4-6) Physical Exam 2 Vital Signs and Narrative: Vital Signs: Last Vital Signs Temp 99.1 F 06/26/24 18:54 Pulse 92 06/26/24 21:56 Resp 12 06/26/24 21:56 BP 117/66 06/26/24 21:56 Pulse Ox 100 06/26/24 21:56 O2 Del Method Room Air 06/26/24 21:56 BMI result Body Mass Index 19.5 Gen: Appears be in no acute distress HEENT: NCAT, Moist mucosa. Pulmonary: Coarse breath sounds CVS: Normal S1-S2 Abdomen: BS+, Soft, Nontender Extremities: Contracted. Limited exam. Neuro: Alert and awake. Results Labs 06/26/24 16:57 06/26/24 16:57 Labs: Laboratory Results - last 24 hr 06/26/24 06/26/24 06/26/24 16:57 17:06 19:02 MCV 82.5 MCH 26.8 L MCHC 32.4 RDW 16.9 H Plt Count 339 MPV 9.9 Immature Gran % (Auto) 0.3 Neut % (Auto) 73.8 H Lymph % (Auto) 14.3 L [place]ell % (Auto) 8.4 Eos % (Auto) 2.7 Baso % (Auto) 0.5 Lymph # (Auto) 1.3 [place]ell # (Auto) 0.7 Eos # (Auto) 0.2 Baso # (Auto) 0.0 Abs Immat Gran (auto) 0.03 Absolute Neuts (auto) 6.5 Absolute Nucleated RBC 0.000 Nucleated RBC % (auto) 0.0 D-Dimer High Sensitivty 378 Anion Gap 14 Estim Creat Clear Calc 79.4 Estimated GFR > 60 Random Glucose 197 H Lactic Acid Calcium 9.6 Magnesium 2.1 Total Bilirubin 0.3 AST 34 ALT 51 H Alkaline Phosphatase 109 Total Creatine Kinase 97 Total Protein 6.6 Albumin 3.4 L Lipase 15 Urine Color Dark Yellow Urine Appearance Turbid Urine pH >= 9.0 Ur Specific [place] 1.025 Urine Protein >=1000 (4+) H Urine Glucose (UA) 250 H Urine Ketones Negative Urine Blood Negative Urine Nitrite Positive H Ur Leukocyte Esterase Large (3+) H Urine RBC 0-2 Urine WBC 0-5 Ur Squamous Epith Cells 0-2 Other Crystals Present Urine Bacteria 4+ Hyaline Casts 0-2 Stool Occult Blood NEGATIVE 06/26/24 22:34 MCV MCH MCHC RDW Plt Count MPV Immature Gran % (Auto) Neut % (Auto) Lymph % (Auto) [place] % (Auto) Eos % (Auto) Baso % (Auto) Lymph # (Auto) [place]ell # (Auto) Eos # (Auto) Baso # (Auto) Abs Immat Gran (auto) Absolute Neuts (auto) Absolute Nucleated RBC Nucleated RBC % (auto) D-Dimer High Sensitivty Anion Gap Estim Creat Clear Calc Estimated GFR Random Glucose Lactic Acid 1.6 Calcium Magnesium Total Bilirubin AST ALT Alkaline Phosphatase Total Creatine Kinase Total Protein Albumin Lipase Urine Color Urine Appearance Urine pH Ur Specific [place] Urine Protein Urine Glucose (UA) Urine Ketones Urine Blood Urine Nitrite Ur Leukocyte Esterase Urine RBC Urine WBC Ur Squamous Epith Cells Other Crystals Urine Bacteria Hyaline Casts Stool Occult Blood Assessment and Plan (1) Pericardial effusion: Status: Acute Plan 74-year-old male with a past medical history, CKD, anemia, prostate cancer, CVA with residual hemiplegia, chronic contraction of the extremities, chronic indwelling Marte, [facility] resident presented to the hospital with a chief complaint of fall. Admitted for following Fall: Patient had an unwitnessed fall from the bed to the floor. CT head and CT C-spine showed no acute findings CT hip/abdominal pelvis shows ossification of the acetabulum which she has fractured-question chronic finding. Also noted to have hemorrhage versus scarring anterior to the bladder-> will await further input from Orthopedics consult CAUTI: Patient has chronic indwelling Marte. Changed in the ER on admission. Empirically covered with ceftriaxone. Follow up cultures. CT also showed debris is/blood clot in the urinary bladder. Urology consult follow-up. CVA with residual hemiplegia / Extremity contractures: Chronic supportive care. Pressure ulcer care prevention per RN. Moderate pericardial effusion: CT chest showed moderate pericardial effusion. Will obtain echocardiogram. Cardiology was notified. Telemetry. ESR, CRP, Lyme titers. Constipation/ileus: General surgery consult. Supportive care. Hx dysphagia: Patient on pureed diet at [facility]. NPO for now. TIP CEMENTER eval. DVT prophylaxis: SubQ heparin Code status: DNR/DNI. Patient has MOLST form. Quality Stroke Does the patient have a stroke diagnosis?: Yes Reason for No Anti-thrombotic by Day Two: N/A - Med Ordered VTE Prior VTE?: No VTE Risk Level:: Medical - moderate - high VTE Device Contraindication: N/A - Device Ordered VTE Drug Contraindication: Treatment Not Indicated
[2024-06-27 05:02] LABS: Basophils Absolute Auto 0.1 X10*3/uL (0.0-0.2); Basophils Percent Auto 0.8 % (0-2); Eosinophils Absolute Auto 0.3 X10*3/uL (0.0-0.4); Eosinophils Percent Auto 3.6 % (0-4); Hemoglobin 9.4 g/dl (14.0-18.0); Imm Gran Abs Auto 0.03 X10*3/uL (0.00-0.03); Imm Gran Pct Auto 0.3 % (0.0-0.4); Lymphocytes Absolute Auto 1.8 X10*3/uL (1.2-4.9); Mean Corpuscular HGB Conc 32.4 g/dl (31.0-36.0); Mean Corpuscular Hemoglobin 26.6 pg (27.0-33.0); Mean Corpuscular Volume 81.9 fL (80.0-98.0); Mean Platelet Volume 10.3 fL (9.4-12.4); Monocytes Absolute Auto 0.7 X10*3/uL (0.1-1.2); Monocytes Percent Auto 7.8 % (2-11); Neutrophils Absolute Auto 5.9 x10*3/uL (2.0-8.3); Neutrophils Percent Auto 67.5 % (45-73); Platelet Count 367 X10*3/uL (160-400); Red Blood Count 3.54 X10*6/uL (4.60-5.80); White Blood Count 8.8 X10*3/uL (4.8-10.8)
[2024-06-27 05:05] LABS: C Reactive Protein 1.05 mg/dL (< or = 0.50)
[2024-06-27 05:17] LABS: Alanine Aminotransferase 49 U/L (0-40); Albumin Level 3.5 g/dL (3.5-5.0); Alkaline Phosphatase 108 U/L (39-117); Anion Gap 15 (12-20); Aspartate Amino Transferase 29 U/L (5-37); Bilirubin Total 0.3 mg/dL (0.0-1.0); Blood Urea Nitrogen 19 mg/dL (9-16); Calcium 10.1 mg/dL (8.4-10.2); Carbon Dioxide 25 mmol/L (22-29); Chloride 105 mmol/L (96-108); Creatinine Clr Calc Pharmacy 81.8; Estimated Glomerular Filt Rate > 60; Glucose Random 111 mg/dL (60-115); Potassium 3.8 mmol/L (3.3-5.1); Sodium 141 mmol/L (135-145); Total Protein 6.6 g/dL (6.5-8.0)
[2024-06-27 05:44] LABS: Erythrocyte Sedimentation Rate 67 MM/HR (0-15)
--- NOTE | 2024-06-27 08:23 | PHA.MEDREC ---
Addendum entered by George Pruett RPh 06/27/24 09:01: Reviewed by [facility] Original Note: Pharmacy Consult ? Medication Reconciliation Pharmacy reviewed med rec done by nursing. Got list from [facility]. I updated some medications in the med list (Risperidone, the nurse confirmed 2XD; updated to BID for our system, Docusate, nurse confirmed 1XD; updated to daily for our system, Rosuvastatin, nurse confirmed daily while list stated takes in the evening; updated in list) and added Multivitamin, Psyllium Husk Powder, Milk of Magnesia, Bisacodyl, Zofran, and Fleet Enema.
--- NOTE | 2024-06-27 09:35 | PM.CNGS ---
History of Present Illness Consult details Consult date: 06/27/24 Narrative: 74-year-old male with multiple medical problems including previous CVA with hemiplegia, chronic contraction, kidney disease, prostate cancer, brought [facility] the [facility] from the [facility] because of a fall. This apparently was non witnessed.. He was noted to have chronic constipation. He had significant fecal load on CAT scan. He does not seem to complain of any abdominal pain. He is not a very good historian. He has minimal verbal output. In view of this CAT scan findings of constipation, surgery was consulted Review of Systems Review of Systems: He is not a good historian and has minimal verbal output Yes Unobtainable due to mental status Constitutional: Constitutional: Denies chills and Denies fever(s) PMFSH Past Medical History Medical History (Updated 06/27/24 @ 14:32 by Vj Vilalrreal MD) Chronic constipation Hyperlipidemia Abnormal EKG HTN (hypertension) Prostate cancer Bowel obstruction Family History Family History Mother No problems noted. Father HTN (hypertension) Social History Social History Household Members: Other Housing: Half-Way Do you presently have visiting nurse or other home services: Yes Alcohol intake: never Patient Tobacco Use Status: Never used Tobacco service: No Meds Allergies Allergy/AdvReac Type Severity Reaction Status Date / Time No Known Allergies Allergy Verified 06/26/24 16:31 [No Known Allergies*] Active Medications: Current Medications Acetaminophen (Acetaminophen 325 Mg Tablet) 650 mg PO Q6H PRN PRN Reason: Pain, Mild 1-3,fever,headache Atorvastatin Calcium (Atorvastatin Calcium 80 Mg Tablet) 80 mg PO BEDTIME [facility] Baclofen (Baclofen 10 Mg Tablet) 10 mg PO TID [facility] Calcium Carbonate (Calcium Carbonate 750 Mg Tab.Chew) 750 mg PO Q4H PRN PRN Reason: Heartburn Carvedilol (Carvedilol 3.125 Mg Tablet) 3.125 mg PO BIDWM [facility]; Protocol Ceftriaxone Sodium (Ceftriaxone Sodium 1 Gm Vial) 1 gm IVPUSH Q24H [facility] Heparin Sodium (Porcine) (Heparin Sodium,Porcine 5,000 Unit/Ml Vial) 5,000 unit SUBCUT Q8H [facility] Magnesium Hydroxide (Milk Of Magnesia 30 Ml Oral.Susp) 30 ml PO DAILY PRN PRN Reason: Constipation Melatonin (Melatonin 3 Mg Tablet) 6 mg PO BEDTIME PRN PRN Reason: Insomnia Mirtazapine (Mirtazapine 7.5 Mg Tablet) 7.5 mg PO BEDTIME [facility] Multivitamins/Vitamin C (Multivitamin Tablet) 1 tab PO DAILY [facility] Risperidone (Risperidone 0.5 Mg Tablet) 0.5 mg PO BID [facility] Last Admin: 06/27/24 04:21 Dose: Not Given Sodium Chloride (0.9 % Sodium Chloride Flush 3 Ml Syringe) 3 ml IVFLUSH QSHIFT [facility] Tamsulosin HCl (Tamsulosin Hcl 0.4 Mg Capsule) 0.8 mg PO DAILY [facility] Thiamine HCl (Thiamine Hcl 100 Mg Tablet) 100 mg PO DAILY [facility] Tramadol HCl (Tramadol Hcl 50 Mg Tablet) 50 mg PO Q8H PRN PRN Reason: Pain (Scale Score 4-6) Home Medications ?Medication ?Instructions ?Recorded ?Confirmed ?Last Taken ?Type cholecalciferol (vitamin D3) 25 25 mcg PO DAILY 03/14/20 06/26/24 06/26/24 08:45 History mcg (1,000 unit) capsule acetaminophen 325 mg tablet 650 mg PO Q6H PRN Pain (Scale 06/26/24 06/27/24 06/24/24 18:20 History (Tylenol) Score 1-3) amlodipine 10 mg tablet 10 mg PO DAILY 06/26/24 06/27/24 06/26/24 08:45 History baclofen 10 mg tablet 10 mg PO TID 06/26/24 06/27/24 06/26/24 13:00 History carvedilol 3.125 mg tablet 3.125 mg PO BID 06/26/24 06/26/24 06/26/24 08:45 History docusate sodium 100 mg capsule 100 mg PO DAILY 06/26/24 06/27/24 06/26/24 08:45 History (Colace) mirtazapine 7.5 mg tablet 7.5 mg PO DAILY 06/26/24 06/27/24 06/25/24 20:00 History risperidone 0.5 mg tablet 0.5 mg PO BID 06/26/24 06/27/24 06/26/24 08:45 History rosuvastatin 40 mg tablet 40 mg PO BEDTIME 06/26/24 06/27/2406/25/25 20:00 History tamsulosin 0.4 mg capsule 0.8 mg PO BEDTIME 06/26/24 06/27/24 Unknown History thiamine HCl (vitamin B1) 100 mg 100 mg PO DAILY 06/26/24 06/26/24 06/26/24 08:45 History tablet tramadol 50 mg tablet 50 mg PO Q8H PRN Pain (Scale Score 06/26/24 06/27/24 06/25/24 18:15 History 4-6) aspirin 81 mg tablet,delayed 81 mg PO DAILY 06/27/24 06/27/24 06/26/24 08:45 History release bisacodyl 10 mg rectal suppository 10 mg NM Q8H PRN Constipation, if 06/27/24 06/27/24 06/06/24 20:00 History no BM for 8 hrs after MOM magnesium hydroxide 400 mg/5 mL 30 ml PO DAILY PRN Constipation 06/27/24 06/27/24 06/21/24 19:00 History oral suspension (Milk of Magnesia) multivitamin 1 tab PO DAILY 06/27/24 06/27/24 06/26/24 08:45 History ondansetron HCl 4 mg tablet 4 mg PO Q4H PRN Nausea And Vomiting 06/27/24 06/27/24 Unknown History psyllium husk 3 gram/3 gram oral 3 g PO DAILY Constipation 06/27/24 06/27/24 06/26/24 08:45 History powder sodium phosphates 19 gram-7 118 ml NM DAILY PRN Constipation 06/27/24 06/27/24 Unknown History gram/118 mL enema (Fleet Enema) if no bm from bisacodyl Physical Exam Vital Signs: Vital Signs: Last Vital Signs Temp 98.7 F 06/27/24 06:01 Pulse 110 H 06/27/24 06:01 Resp 14 06/27/24 06:01 BP 116/62 06/27/24 06:01 Pulse Ox 98 06/27/24 06:01 O2 Del Method Room Air 06/27/24 06:01 BMI result Body Mass Index 19.5 Const: Other: Minimal verbal output, very frail looking General: comfortable and no acute distress Resp: Effort & Inspection: normal respiratory effort GI: Other: Not distended, no apparent tenderness Palpation (GI): Soft to palpation, not firm, nontender and no guarding Results Labs 06/29/24 05:31 06/29/24 05:31 Labs: Abnormal lab results 06/26/24 06/27/24 Range/Units 16:57 04:42 RBC 3.55 L 3.54 L (4.60-5.80) X10*6/uL Hgb 9.5 L 9.4 L (14.0-18.0) g/dl Hct 29.3 L 29.0 L (42.0-52.0) % MCH 26.8 L 26.6 L (27.0-33.0) pg RDW 16.9 H 17.0 H (11.0-16.0) % Neut % (Auto) 73.8 H (45-73) % Lymph % (Auto) 14.3 L (20-40) % ESR 67 H (0-15) MM/HR Carbon Dioxide 21 L (22-29) mmol/L BUN 21 H 19 H (9-16) mg/dL Random Glucose 197 H (60-115) mg/dL ALT 51 H 49 H (0-40) U/L C-Reactive Protein 1.05 H (< or = 0.50) mg/dL Albumin 3.4 L (3.5-5.0) g/dL Urine Protein >=1000 (4+) H (Neg-Trace) mg/dL Urine Glucose (UA) 250 H (Negative) mg/dL Urine Nitrite Positive H (Negative) Ur Leukocyte Esterase Large (3+) H (Negative) Short CBC 06/26/24 06/27/24 Range/Units 16:57 04:42 WBC 8.8 8.8 (4.8-10.8) X10*3/uL Hgb 9.5 L 9.4 L (14.0-18.0) g/dl Hct 29.3 L 29.0 L (42.0-52.0) % Plt Count 339 367 (160-400) X10*3/uL BMP 06/26/24 06/27/24 16:57 04:42 Sodium 138 141 Potassium 4.1 3.8 Chloride 107 105 Carbon Dioxide 21 L 25 BUN 21 H 19 H Creatinine 0.70 0.68 Calcium 9.6 10.1 Cardiac Enzymes 06/26/24 Range/Units 16:57 Total Creatine Kinase 97 (38-174) U/L Liver Function 06/26/24 06/27/24 Range/Units 16:57 04:42 Total Bilirubin 0.3 0.3 (0.0-1.0) mg/dL AST 34 29 (5-37) U/L ALT 51 H 49 H (0-40) U/L Alkaline Phosphatase 109 108 (39-117) U/L Albumin 3.4 L 3.5 (3.5-5.0) g/dL Urine 06/26/24 Range/Units 16:57 Urine Color Dark Yellow Urine Appearance Turbid Urine pH >= 9.0 (5.0-9.0) Ur Specific [place] 1.025 (1.005-1.025) Urine Protein >=1000 (4+) H (Neg-Trace) mg/dL Urine Glucose (UA) 250 H (Negative) mg/dL All other labs normal. Assessment and Plan (1) Chronic constipation: Status: Acute 74-year-old male, with multiple medical problems, admitted because of a fall from the [facility], referred because of chronic constipation. He does have an abdominal CAT scan showing heavy stool volume in the colon. However, there is no evidence of any obstruction at this time. I recommend a good bowel regimen including stool softeners , fiber supplementation, laxatives, in even occasional enemas. His CAT scan also shows some blood in the space of [place]zius most likely related to his this recent trauma. He has been seen by the orthopedic service with regards to this His abdominal exam is very benign otherwise. He is being treated for a urinary tract infection and has an indwelling Marte catheter currently. Procedures Date of Service Date of Service: 07/03/24
--- NOTE | 2024-06-27 09:36 | PM.EVENT ---
Event Note Date of Service: 06/27/24 Event Note: 74-year-old male admitted to the hospital after a fall Past medical history significant for CVA with hemiparesis and hemiplegia, significant contractures of lower extremities, patient is bed-bound at baseline Pericardial effusion found while in the ED While in the ED, pelvis x-rays and CT scans revealed chronic fracture of heterotopic ossification bridging the greater trochanter and acetabulum of the right hip No acute hip or pelvic fracture noted No acute orthopedic intervention indicated at this time As patient is nonweightbearing at baseline, no further restrictions are indicated Time Spent With Patient Time: Total time managing care of this patient today ____ minutes.
[2024-06-27] MEDS: Tamsulosin HCL 0.4 MG CAPSULE 0.8 MG PO (09:38)
[2024-06-27] MEDS: Thiamine HCL 100 MG TABLET PO (09:38)
[2024-06-27] MEDS: risperiDONE 0.5 MG TABLET PO ×2 (09:38→21:56)
[2024-06-27] MEDS: Baclofen 10 MG TABLET PO ×3 (09:38→21:55)
[2024-06-27] MEDS: carvediloL 3.125 MG TABLET PO ×2 (09:41→16:50)
[2024-06-27] MEDS: 0.9 % Sodium Chloride Flush 3 ML SYRINGE IVFLUSH ×3 (09:42→21:56)
--- NOTE | 2024-06-27 09:51 | HO.PM.IMPN ---
Subjective Subjective Date of Service: 06/27/24 Interval History: hematuria Physical Exam Vital Signs: Vital Signs: Last Vital Signs Temp 98.7 F 06/27/24 06:01 Pulse 115 H 06/27/24 09:49 Resp 16 06/27/24 09:49 BP 130/71 06/27/24 09:49 Pulse Ox 98 06/27/24 09:49 O2 Del Method Room Air 06/27/24 09:49 BMI result Body Mass Index 19.5 alert, oriented to name and year, minimally verbal, poor insight, contracted, hematuria Objective Data Active Medications Acetaminophen (Acetaminophen 325 Mg Tablet) 650 mg PO Q6H PRN PRN Reason: Pain, Mild 1-3,fever,headache Atorvastatin Calcium (Atorvastatin Calcium 80 Mg Tablet) 80 mg PO BEDTIME [facility] Baclofen (Baclofen 10 Mg Tablet) 10 mg PO TID [facility] Last Admin: 06/27/24 09:38 Dose: 10 mg Documented By: IVA Calcium Carbonate (Calcium Carbonate 750 Mg Tab.Chew) 750 mg PO Q4H PRN PRN Reason: Heartburn Carvedilol (Carvedilol 3.125 Mg Tablet) 3.125 mg PO BIDWM [facility]; Protocol Last Admin: 06/27/24 09:41 Dose: 3.125 mg Documented By: IVA Ceftriaxone Sodium (Ceftriaxone Sodium 1 Gm Vial) 1 gm IVPUSH Q24H [facility] Heparin Sodium (Porcine) (Heparin Sodium,Porcine 5,000 Unit/Ml Vial) 5,000 unit SUBCUT Q8H [facility] Last Admin: 06/27/24 09:42 Dose: Not Given Documented By: IVA Non-Admin Reason: md magallanes, hematuria Magnesium Hydroxide (Milk Of Magnesia 30 Ml Oral.Susp) 30 ml PO DAILY PRN PRN Reason: Constipation Melatonin (Melatonin 3 Mg Tablet) 6 mg PO BEDTIME PRN PRN Reason: Insomnia Mirtazapine (Mirtazapine 7.5 Mg Tablet) 7.5 mg PO BEDTIME [facility] Multivitamins/Vitamin C (Multivitamin Tablet) 1 tab PO DAILY [facility] Risperidone (Risperidone 0.5 Mg Tablet) 0.5 mg PO BID [facility] Last Admin: 06/27/24 09:38 Dose: 0.5 mg Documented By: IVA Sodium Chloride (0.9 % Sodium Chloride Flush 3 Ml Syringe) 3 ml IVFLUSH QSHIFT [facility] Last Admin: 06/27/24 09:42 Dose: 3 ml Documented By: IVA Tamsulosin HCl (Tamsulosin Hcl 0.4 Mg Capsule) 0.8 mg PO DAILY [facility] Last Admin: 06/27/24 09:38 Dose: 0.8 mg Documented By: IVA Thiamine HCl (Thiamine Hcl 100 Mg Tablet) 100 mg PO DAILY [facility] Last Admin: 06/27/24 09:38 Dose: 100 mg Documented By: IVA Tramadol HCl (Tramadol Hcl 50 Mg Tablet) 50 mg PO Q8H PRN PRN Reason: Pain (Scale Score 4-6) Labs 06/27/24 04:42 06/27/24 04:42 Labs: Laboratory Results - last 24 hr 06/26/24 06/26/24 06/26/24 16:57 17:06 19:02 MCV 82.5 MCH 26.8 L MCHC 32.4 RDW 16.9 H Plt Count 339 MPV 9.9 Immature Gran % (Auto) 0.3 Neut % (Auto) 73.8 H Lymph % (Auto) 14.3 L [place] % (Auto) 8.4 Eos % (Auto) 2.7 Baso % (Auto) 0.5 Lymph # (Auto) 1.3 [place] # (Auto) 0.7 Eos # (Auto) 0.2 Baso # (Auto) 0.0 Abs Immat Gran (auto) 0.03 Absolute Neuts (auto) 6.5 Absolute Nucleated RBC 0.000 Nucleated RBC % (auto) 0.0 ESR D-Dimer High Sensitivty 378 Anion Gap 14 Estim Creat Clear Calc 79.4 Estimated GFR > 60 Random Glucose 197 H Lactic Acid Calcium 9.6 Magnesium 2.1 Total Bilirubin 0.3 AST 34 ALT 51 H Alkaline Phosphatase 109 Total Creatine Kinase 97 C-Reactive Protein Total Protein 6.6 Albumin 3.4 L Lipase 15 Urine Color Dark Yellow Urine Appearance Turbid Urine pH >= 9.0 Ur Specific [place] 1.025 Urine Protein >=1000 (4+) H Urine Glucose (UA) 250 H Urine Ketones Negative Urine Blood Negative Urine Nitrite Positive H Ur Leukocyte Esterase Large (3+) H Urine RBC 0-2 Urine WBC 0-5 Ur Squamous Epith Cells 0-2 Other Crystals Present Urine Bacteria 4+ Hyaline Casts 0-2 Stool Occult Blood NEGATIVE 06/26/24 06/27/24 22:34 04:42 MCV 81.9 MCH 26.6 L MCHC 32.4 RDW 17.0 H Plt Count 367 MPV 10.3 Immature Gran % (Auto) 0.3 Neut % (Auto) 67.5 Lymph % (Auto) 20.0 [place] % (Auto) 7.8 Eos % (Auto) 3.6 Baso % (Auto) 0.8 Lymph # (Auto) 1.8 [place] # (Auto) 0.7 Eos # (Auto) 0.3 Baso # (Auto) 0.1 Abs Immat Gran (auto) 0.03 Absolute Neuts (auto) 5.9 Absolute Nucleated RBC 0.000 Nucleated RBC % (auto) 0.0 ESR 67 H D-Dimer High Sensitivty Anion Gap 15 Estim Creat Clear Calc 81.8 Estimated GFR > 60 Random Glucose 111 Lactic Acid 1.6 Calcium 10.1 Magnesium Total Bilirubin 0.3 AST 29 ALT 49 H Alkaline Phosphatase 108 Total Creatine Kinase C-Reactive Protein 1.05 H Total Protein 6.6 Albumin 3.5 Lipase Urine Color Urine Appearance Urine pH Ur Specific [place] Urine Protein Urine Glucose (UA) Urine Ketones Urine Blood Urine Nitrite Ur Leukocyte Esterase Urine RBC Urine WBC Ur Squamous Epith Cells Other Crystals Urine Bacteria Hyaline Casts Stool Occult Blood Microbiology Microbiology Results: Microbiology 06/26/24 Unknown Urine Culture - Preliminary Urine Catheterized - Marte Catheter Culture too young to evaluate. Assessment and Plan (1) Pericardial effusion: Status: Acute Plan 74M PMH advanced vascular/Alzheimer's dementia chronically bed-bound with contractions, CVA with residual hemiplegia, prostate cancer, chronic indwelling Marte presented from shelter with unwitnessed fall, noted to have significant hematuria, pyuria, bacteriuria. Pericardial effusion. Unwitnessed fall Fracture appears chronic as patient is nonweightbearing at baseline no intervention needed Catheter associated urinary tract infection complicated by hematuria Hold aspirin, urology eval, ceftriaxone, follow up cultures Moderate pericardial effusion Check echo, cardio eval Chronic constipation Bowel regimen Advanced vascular/Alzheimer's dementia At risk for delirium, monitor closely History of CVA Holding aspirin, continue statin DVT prophylaxis-mechanical due to hematuria DNR/DNI reason for continued hospitalization: Awaiting cultures Quality Stroke Does the patient have a stroke diagnosis?: Yes Reason for No Anti-thrombotic by Day Two: N/A - Med Ordered VTE Prior VTE?: No VTE Risk Level:: Medical - moderate - high VTE Device Contraindication: N/A - Device Ordered VTE Drug Contraindication: Treatment Not Indicated
--- NOTE | 2024-06-27 09:51 | PC.NURSE ---
Addendum entered by Miriam Velázquez 06/27/24 09:54: Sinus tach on tele rate low 100s Original Note: Pt is alert and oriented x2. Sleeping initially but awakes easily to voice. Denies pain but moaning and groaning with movement or touch with care. Repositioned as much as pt tolerated. Hematuria noted, continues to flow and is patent. Dr De Guzman aware, will continue to monitor for changes. Heparin held. Pt unable to tolerate Flomax, chewing tab, removed from mouth and other tab not given. Other meds crushed in pudding. VSS.
[2024-06-27] MEDS: Docusate Sodium 100 MG/10 ML LIQUID PO (11:43)
--- NOTE | 2024-06-27 12:20 | MHC.SL.SWA ---
Speech Pathologist Impression: Mild oropharyngeal dysphagia at baseline Risk of Aspiration Due to: Residual effects of CVA Hx of dysphagia, puree diet at baseline Dysphasia Diet Status: Liquid Consistency and Strategies for Safe Swallow: Liquid Intake Recommendation: Thin Liquid Intake Strategies: Solid Food Consistency: Dietary Recommendations: Pureed (NDD1) Additional Modifications to Solid Foods: Oral Medication Intake: Crushed with Puree Please contact the pharmacy regarding appropriate crushable or liquid drug formulations that are available whenever modified delivery is recommended. Compensatory Strategies and Precautions to be Taken for Safe Swallow: Supervision While Eating and Drinking for Safe Swallow: Direct Supervision (1:1) Foods to Avoid: Swallowing Recommended Treatments: Recommendation for Speech: Inpatient Speech Therapy Comment: Pt tolerated consecutive sips of thins by straw with good oropharyngeal control: adequate respiratory coordination, efficient labial seal, timely anterior to posterior transit, adequate elevation of larynx upon trigger of pharyngeal swallow. Pt took minimal amounts of puree by tsp when fed by PRODUCTION MATERIAL COORDINATOR, adequate oropharyngeal efficiency observed. No overt s/s of aspiration observed with thins by straw and purees. Frequency/Duration: Daily M-F Date Range for Service Req: Timeline to reassess: Pharmacist Assistant Clinican/Clinical Fellow: No Supervisory Statement: I have reviewed and agree with the student/clinical fellow's documentation: N/A Speech Language Pathologist: Isabella Rees M.S., CCC-PRODUCTION MATERIAL COORDINATOR
--- NOTE | 2024-06-27 13:44 | PC.NURSE ---
Pt repositioned in bed. Marte draining now dark yellow urine hematuria resolving, large amount of sediment noted. Warm blankets provided.
--- NOTE | 2024-06-27 14:29 | P.CONCA_ITS ---
History of Present Illness History of Present Illness Date of Service: 06/27/24 Requesting physician: Miguel Ángel De Guzman Consult reason: other (Pericardial effusion) Chief complaint: UTI Narrative: I was consulted to see Joshua as he was noted incidentally to have pericardial effusion on the CT scan. Reviewing last echocardiogram 3 years ago he did have small pericardial effusion at that time and this time he had a CT scan done for noncardiac reason was noted to and reported as moderate pericardial effusion. He has no cardiac symptoms reported. He came in for a fall and was worked up and was noted to have UTI and has been admitted for observation. There has been no hemodynamic compromise or hypotension. There has been no signs of congestive heart failure. Patient has remained otherwise stable. Patient does not report any cardiac symptoms. Review of Systems 2 Constitutional: Constitutional: Reports fatigue and Reports poor appetite Cardiovascular: Cardiovascular: Reports no additional cardiovascular complaints Respiratory: Respiratory: Reports no additional respiratory complaints Gastrointestinal: Gastrointestinal: Reports no additional gastrointestinal complaints Genitourinary: Genitourinary: Reports no additional male genitourinary complaints Musculoskeletal: Musculoskeletal: Reports no additional musculoskeletal complaints Psychiatric: Psychiatric: Reports no additional psychiatric complaints Endocrine: Endocrine: Reports fatigue PMFSH Past Medical History Medical History Chronic constipation Hyperlipidemia Abnormal EKG HTN (hypertension) Prostate cancer Bowel obstruction Family History Family History Mother No problems noted. Father HTN (hypertension) Social History Social History Alcohol intake: never Patient Tobacco Use Status: Never used Tobacco Smoked in Last 30 Days: No Use of substances other than those prescribed or required for medical reasons: No Advance Directives: No Advance Directives Information Provided: No Do you have a plan to hurt others: No Plan Nutrition Risks: No Nutritional Risk Meds Allergies Allergy/AdvReac Type Severity Reaction Status Date / Time No Known Allergies Allergy Verified 06/26/24 16:31 [No Known Allergies*] Active Medications: Current Medications Acetaminophen (Acetaminophen 325 Mg Tablet) 650 mg PO Q6H PRN PRN Reason: Pain, Mild 1-3,fever,headache Atorvastatin Calcium (Atorvastatin Calcium 80 Mg Tablet) 80 mg PO BEDTIME [facility] Baclofen (Baclofen 10 Mg Tablet) 10 mg PO TID [facility] Last Admin: 06/27/24 14:17 Dose: 10 mg Bisacodyl (Bisacodyl 10 Mg Supp.Rect) 10 mg [place] Q8H PRN PRN Reason: Constipation, if no BM for 8 hrs after MOM Calcium Carbonate (Calcium Carbonate 750 Mg Tab.Chew) 750 mg PO Q4H PRN PRN Reason: Heartburn Carvedilol (Carvedilol 3.125 Mg Tablet) 3.125 mg PO BIDWM [facility]; Protocol Last Admin: 06/27/24 09:41 Dose: 3.125 mg Ceftriaxone Sodium (Ceftriaxone Sodium 1 Gm Vial) 1 gm IVPUSH Q24H [facility] Docusate Sodium (Docusate Sodium 100 Mg/10 Ml Liquid) 100 mg PO DAILY [facility] Last Admin: 06/27/24 11:43 Dose: 100 mg Magnesium Hydroxide (Milk Of Magnesia 30 Ml Oral.Susp) 30 ml PO DAILY PRN PRN Reason: Constipation Melatonin (Melatonin 3 Mg Tablet) 6 mg PO BEDTIME PRN PRN Reason: Insomnia Mirtazapine (Mirtazapine 7.5 Mg Tablet) 7.5 mg PO BEDTIME [facility] Multivitamins/Vitamin C (Multivitamin Tablet) 1 tab PO DAILY [facility] Risperidone (Risperidone 0.5 Mg Tablet) 0.5 mg PO BID [facility] Last Admin: 06/27/24 09:38 Dose: 0.5 mg Sodium Biphosphate/Sodium Phosphate (Sodium Phosphate,[place]-Dibasic 133 Ml Enema) 118 ml [place] DAILY PRN PRN Reason: Constipation if no bm from bisacodyl Sodium Chloride (0.9 % Sodium Chloride Flush 3 Ml Syringe) 3 ml IVFLUSH QSHIFT [facility] Last Admin: 06/27/24 09:42 Dose: 3 ml Tamsulosin HCl (Tamsulosin Hcl 0.4 Mg Capsule) 0.8 mg PO DAILY [facility] Last Admin: 06/27/24 09:38 Dose: 0.8 mg Thiamine HCl (Thiamine Hcl 100 Mg Tablet) 100 mg PO DAILY [facility] Last Admin: 06/27/24 09:38 Dose: 100 mg Tramadol HCl (Tramadol Hcl 50 Mg Tablet) 50 mg PO Q8H PRN PRN Reason: Pain (Scale Score 4-6) Home Medications ?Medication ?Instructions ?Recorded ?Confirmed ?Last Taken ?Type cholecalciferol (vitamin D3) 25 25 mcg PO DAILY 03/14/20 06/26/24 06/26/24 08:45 History mcg (1,000 unit) capsule acetaminophen 325 mg tablet 650 mg PO Q6H PRN Pain (Scale 06/26/24 06/27/24 06/24/24 18:20 History (Tylenol) Score 1-3) amlodipine 10 mg tablet 10 mg PO DAILY 06/26/24 06/27/24 06/26/24 08:45 History baclofen 10 mg tablet 10 mg PO TID 06/26/24 06/27/24 06/26/24 13:00 History carvedilol 3.125 mg tablet 3.125 mg PO BID 06/26/24 06/26/24 06/26/24 08:45 History docusate sodium 100 mg capsule 100 mg PO DAILY 06/26/24 06/27/24 06/26/24 08:45 History (Colace) mirtazapine 7.5 mg tablet 7.5 mg PO DAILY 06/26/24 06/27/24 06/25/24 20:00 History risperidone 0.5 mg tablet 0.5 mg PO BID 06/26/24 06/27/24 06/26/24 08:45 History rosuvastatin 40 mg tablet 40 mg PO BEDTIME 06/26/24 06/27/24 06/25/24 20:00 History tamsulosin 0.4 mg capsule 0.8 mg PO BEDTIME 06/26/24 06/27/24 Unknown History thiamine HCl (vitamin B1) 100 mg 100 mg PO DAILY 06/26/24 06/26/24 06/26/24 08:45 History tablet tramadol 50 mg tablet 50 mg PO Q8H PRN Pain (Scale Score 06/26/24 06/27/24 06/25/24 18:15 History 4-6) aspirin 81 mg tablet,delayed 81 mg PO DAILY 06/27/24 06/27/24 06/26/24 08:45 History release bisacodyl 10 mg rectal suppository 10 mg OK Q8H PRN Constipation, if 06/27/24 06/27/24 06/06/24 20:00 History no BM for 8 hrs after MOM magnesium hydroxide 400 mg/5 mL 30 ml PO DAILY PRN Constipation 06/27/24 06/27/24 06/21/24 19:00 History oral suspension (Milk of Magnesia) multivitamin 1 tab PO DAILY 06/27/24 06/27/24 06/26/24 08:45 History ondansetron HCl 4 mg tablet 4 mg PO Q4H PRN Nausea And Vomiting 06/27/24 06/27/24 Unknown History psyllium husk 3 gram/3 gram oral 3 g PO DAILY Constipation 06/27/24 06/27/24 06/26/24 08:45 History powder sodium phosphates 19 gram-7 118 ml [place] DAILY PRN Constipation 06/27/24 06/27/24 Unknown History gram/118 mL enema (Fleet Enema) if no bm from bisacodyl Physical Exam 2 Vital Signs: Vital Signs: Last Vital Signs Temp 98.7 F 06/27/24 06:01 Pulse 104 H 06/27/24 14:19 Resp 16 06/27/24 14:19 BP 112/76 06/27/24 14:19 Pulse Ox 98 06/27/24 14:19 O2 Del Method Room Air 06/27/24 14:19 BMI result Body Mass Index 19.5 Const: General: cooperative, comfortable, alert and awake Nutritional Appearance: thin Orientation/consciousness: patient oriented x3 HEENT: Head: Yes normocephalic and Yes atraumatic Neck: Neck: Yes trachea midline, Yes supple and Yes no JVD Resp: Effort & Inspection: decreased respiratory effort Auscultation: clear to auscultation bilaterally Cardio: Jugular venous distension: no JVD Rate: regular rate Rhythm: r egular rhythm Heart sounds: S1 normal heart sound present, S2 normal heart sound present, no click, no gallops, no murmurs and no rubs GI: Auscultation: normal bowel sounds Skin: General skin exam: no rashes or lesions noted Neuro: General: patient oriented x3 and other (All extremities contracted) Extrem: General: Yes no clubbing, cyanosis or edema Objective Labs and Meds 06/27/24 04:42 06/27/24 04:42 Lab results: Laboratory Results - last 24 hr 06/26/24 06/26/24 06/26/24 16:57 17:06 19:02 WBC 8.8 RBC 3.55 L Hgb 9.5 L Hct 29.3 L MCV 82.5 MCH 26.8 L MCHC 32.4 RDW 16.9 H Plt Count 339 MPV 9.9 Immature Gran % (Auto) 0.3 Neut % (Auto) 73.8 H Lymph % (Auto) 14.3 L [place] % (Auto) 8.4 Eos % (Auto) 2.7 Baso % (Auto) 0.5 Lymph # (Auto) 1.3 [place] # (Auto) 0.7 Eos # (Auto) 0.2 Baso # (Auto) 0.0 Abs Immat Gran (auto) 0.03 Absolute Neuts (auto) 6.5 Absolute Nucleated RBC 0.000 Nucleated RBC % (auto) 0.0 ESR D-Dimer High Sensitivty 378 Sodium 138 Potassium 4.1 Chloride 107 Carbon Dioxide 21 L Anion Gap 14 BUN 21 H Creatinine 0.70 Estim Creat Clear Calc 79.4 Estimated GFR > 60 Random Glucose 197 H Lactic Acid Calcium 9.6 Magnesium 2.1 Total Bilirubin 0.3 AST 34 ALT 51 H Alkaline Phosphatase 109 Total Creatine Kinase 97 Troponin I High Sens 5.7 C-Reactive Protein Total Protein 6.6 Albumin 3.4 L Lipase 15 Urine Color Dark Yellow Urine Appearance Turbid Urine pH >= 9.0 Ur Specific [place] 1.025 Urine Protein >=1000 (4+) H Urine Glucose (UA) 250 H Urine Ketones Negative Urine Blood Negative Urine Nitrite Positive H Ur Leukocyte Esterase Large (3+) H Urine RBC 0-2 Urine WBC 0-5 Ur Squamous Epith Cells 0-2 Other Crystals Present Urine Bacteria 4+ Hyaline Casts 0-2 Stool Occult Blood NEGATIVE 06/26/24 06/27/24 22:34 04:42 WBC 8.8 RBC 3.54 L Hgb 9.4 L Hct 29.0 L MCV 81.9 MCH 26.6 L MCHC 32.4 RDW 17.0 H Plt Count 367 MPV 10.3 Immature Gran % (Auto) 0.3 Neut % (Auto) 67.5 Lymph % (Auto) 20.0 [place] % (Auto) 7.8 Eos % (Auto) 3.6 Baso % (Auto) 0.8 Lymph # (Auto) 1.8 [place] # (Auto) 0.7 Eos # (Auto) 0.3 Baso # (Auto) 0.1 Abs Immat Gran (auto) 0.03 Absolute Neuts (auto) 5.9 Absolute Nucleated RBC 0.000 Nucleated RBC % (auto) 0.0 ESR 67 H D-Dimer High Sensitivty Sodium 141 Potassium 3.8 Chloride 105 Carbon Dioxide 25 Anion Gap 15 BUN 19 H Creatinine 0.68 Estim Creat Clear Calc 81.8 Estimated GFR > 60 Random Glucose 111 Lactic Acid 1.6 Calcium 10.1 Magnesium Total Bilirubin 0.3 AST 29 ALT 49 H Alkaline Phosphatase 108 Total Creatine Kinase Troponin I High Sens C-Reactive Protein 1.05 H Total Protein 6.6 Albumin 3.5 Lipase Urine Color Urine Appearance Urine pH Ur Specific [place] Urine Protein Urine Glucose (UA) Urine Ketones Urine Blood Urine Nitrite Ur Leukocyte Esterase Urine RBC Urine WBC Ur Squamous Epith Cells Other Crystals Urine Bacteria Hyaline Casts Stool Occult Blood Assessment and Plan (1) Pericardial effusion: Status: Acute Pericardial effusion which is reported as moderate on CT scan which was noted incidentally in his asymptomatic without any hemodynamic compromise. 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 At this point time I would echocardiogram should be repeated for better evaluation and comparison and also to evaluate for hemodynamic compromise associated with it. If there are no significant concerns from that perspective no interventions would be required at this point time. Continue management of his underlying chronic condition has acute UTI. Will follow up if need be. Thank you for allowing me to partake in his care Procedures Date of Service Date of Service: 06/27/24
--- NOTE | 2024-06-27 15:43 | HO.SKINPHOTO ---
Location:left heel Category: Stage: Length: Width: Depth: cm Location: Category: Stage: Length: Width: Depth: cm Location: Category: Stage: Length: Width: Depth: cm Location: Category: Stage: Length: Width: Depth: cm Location: Category: Stage: Length: Width: Depth: cm Location: Category: Stage: Length: Width: Depth: cm
--- NOTE | 2024-06-27 15:45 | HO.SKINPHOTO ---
Location:left laterL HEEL Category: Stage: Length: Width: Depth: cm Location: Category: Stage: Length: Width: Depth: cm Location: Category: Stage: Length: Width: Depth: cm Location: Category: Stage: Length: Width: Depth: cm Location: Category: Stage: Length: Width: Depth: cm Location: Category: Stage: Length: Width: Depth: cm
--- NOTE | 2024-06-27 15:46 | HO.SKINPHOTO ---
Location:[facility] , ? PRESSURE FROM DEVICE Category: Stage: Length: Width: Depth: cm Location: Category: Stage: Length: Width: Depth: cm Location: Category: Stage: Length: Width: Depth: cm Location: Category: Stage: Length: Width: Depth: cm Location: Category: Stage: Length: Width: Depth: cm Location: Category: Stage: Length: Width: Depth: cm
[2024-06-27] MEDS: cefTRIAXone sodium 1 GM VIAL IVPUSH (21:54)
[2024-06-27] MEDS: Melatonin 3 MG TABLET 6 MG PO (21:56)
[2024-06-27] MEDS: Mirtazapine 7.5 MG TABLET PO (21:56)
[2024-06-27] MEDS: Atorvastatin Calcium 80 MG TABLET PO (21:56)
[2024-06-27] MEDS: traMADoL HCL 50 MG TABLET PO (23:07)
[2024-06-28] VITALS (7 sets, daily range): BP systolic 100–137; BP diastolic 56–70; PULSE 75–101; RESP 16; TEMP 36.6–37.1; O2SAT 97–100
[2024-06-28 04:58] LABS: Lyme Abs Screen <0.90 index
[2024-06-28 06:14] LABS: Anion Gap 13 (12-20); Blood Urea Nitrogen 19 mg/dL (9-16); Calcium 9.6 mg/dL (8.4-10.2); Carbon Dioxide 26 mmol/L (22-29); Chloride 105 mmol/L (96-108); Creatinine Clr Calc Pharmacy 75.1; Estimated Glomerular Filt Rate > 60; Glucose Random 106 mg/dL (60-115); Potassium 3.6 mmol/L (3.3-5.1); Sodium 140 mmol/L (135-145)
[2024-06-28 06:22] LABS: Hematocrit 24.6 % (42.0-52.0); Mean Corpuscular HGB Conc 32.5 g/dl (31.0-36.0); Mean Corpuscular Hemoglobin 26.5 pg (27.0-33.0); Mean Corpuscular Volume 81.5 fL (80.0-98.0); Mean Platelet Volume 10.2 fL (9.4-12.4); Platelet Count 338 X10*3/uL (160-400); Red Blood Count 3.02 X10*6/uL (4.60-5.80); Red Cell Distribution Width 16.8 % (11.0-16.0); White Blood Count 7.6 X10*3/uL (4.8-10.8)
--- NOTE | 2024-06-28 07:00 | CA_ITS ---
Transthoracic Echocardiogram Patient (Last, First, Middle): Joshua Barnhart C Gender: Male Date of : 1950 Age: 74 Procedure Date: 06/28/2024 Procedure Type: Transthoracic Echocardiogram Location: [facility] Height: 175.26 cm Weight: 59.42 kg BSA: 1.73 m2 Heart Rate: 88 bpm BP: 116 / 62 mmHg Embroidery Operator: NELSON Fernandez MD: Bhavik Leos MD Speech Therapy Director: Vj Villarreal MD Symptoms: CHF, pericardial effusion Study Quality: Adequate ECG Rhythm: Sinus Conclusions: - 1. Moderately reduced LV ejection fraction 35-40% with impaired relaxation filling pattern 2. Normal cardiac valvular Dopplers 3. Trivial pericardial effusion Findings Left Ventricle Normal left ventricular cavity size. There is normal left ventricular wall thickness. The left ventricular systolic function is moderately decreased. The visually estimated ejection fraction is between 35-40%. Spectral Doppler is indicative of an impaired relaxation filling pattern. There is mild septal asymmetric hypertrophy. Right Ventricle Normal right ventricular cavity size and systolic function. Atria The left atrium is normal in size. Interatrial shunt cannot be excluded. The right atrium is normal in size. Aortic Valve The aortic valve structure and function is likely normal. There is no aortic valve stenosis. There is no aortic valve regurgitation. Mitral Valve Normal mitral valve structure and function. There is trace mitral valve regurgitation. There is no mitral valve stenosis. Pulmonic Valve The pulmonic valve was not well visualized. Tricuspid Valve The tricuspid valve was not well visualized. Great Vessels The aorta was not well visualized. The pulmonary artery was not well visualized. There is no dilatation of the ascending aorta measuring 2.90 cm. Venous The inferior vena cava is normal in size. Pericardium/Pleural There is a trivial pericardial effusion. Prior Study Comparison Changes noted compared to prior study dated: 03/21/2020. LV systolic function is reduced Measurements 2D Linear Measurements IVSd: 1.34 0.6-0.9/0.6-1.0 cm LVIDd: 3.98 3.9-5.3/4.2-5.9 cm LVIDd Index: 2.30 2.4-3.2/2.2-3.1 cm/m2 LVIDs: 2.81 2.0-3.6 cm LVPWd: 1.02 0.7-1.1 cm LA Diam: 3.60 2.7-3.8/3.0-4.0 cm LAIDs Index: 2.08 1.5-2.3 cm/m2 LV Mass: 199.47 67-162/88-224 g LV Mass Index: 115.30 43-95/49-115 g/m2 LVOT Diam: 2.00 3.0+(-)1.3 cm 2D Systolic Function EF 4C: 28.10 >55% EF 2C: 53.30 >55% EF BiP: 39.30 >55% Mitral Valve MV Pk E: 0.83 MV PK A: 0.90 MV Decel Time: 259.00 E/A: 0.90 E'Lateral: 6.20 E'Medial: 4.57 E/E' Med: 18.10 E/E' Lat: 13.30 PHT: 76.00 MVA PHT: 2.89 Decel [place]: 2.32 Aortic Valve AoV Pk Perez: 1.21 AoV Mn Perez: 0.82 AoV VTI: 0.22 AoV Pk Grad: 6.00 Aov Mn Grad: 3.00 YUDITH Cont.VTI: 2.05 LVOT LVOT Pk Perez: 0.83 LVOT Mn Perez: 0.60 LVOT VTI: 0.15 LVOT Pk Grad: 3.00 LVOT Mn Grad: 2.00 LVOT Diam: 2.00 LVOT Area: 3.14 Diastolic Function MV Pk E: 0.83 MV Pk A: 0.90 E/A: 0.90 E'Medial: 4.57 E/E' Med: 18.10 E' Laterial: 6.20 E/E' Lat: 13.30 Right Ventricle TAPSE (mm): 20.00 TVS' Perez: 10.10 Tricuspid Valve TR Pk Perez: 1.82 TR Pk Grad: 13.00 Great Vessels Aorta Sinus of Valsalva: 3.50 2.0-3.5 cm Ao Asc: 2.90 2.1-3.4 cm Ao Arch: 3.30 Updated in Other Vendor System with Status of Final Vj Villarreal MD electronically signed on 06/28/2024 3:50:49 PM with status of Final
[2024-06-28] MEDS: Thiamine HCL 100 MG TABLET PO (07:20)
[2024-06-28] MEDS: carvediloL 3.125 MG TABLET PO ×2 (07:20→15:55)
[2024-06-28] MEDS: Multivitamin TABLET 1 TAB PO (07:20)
[2024-06-28] MEDS: Tamsulosin HCL 0.4 MG CAPSULE 0.8 MG PO (07:20)
[2024-06-28] MEDS: Baclofen 10 MG TABLET PO ×3 (07:20→21:29)
[2024-06-28] MEDS: 0.9 % Sodium Chloride Flush 3 ML SYRINGE IVFLUSH ×3 (07:21→21:29)
[2024-06-28] MEDS: risperiDONE 0.5 MG TABLET PO ×2 (07:21→21:29)
[2024-06-28] MEDS: Docusate Sodium 100 MG/10 ML LIQUID PO (07:21)
--- NOTE | 2024-06-28 07:42 | PM.PNGS ---
Subjective Subjective Date of Service: 06/28/24 Interval history: patient responding minimally throughout evaluation. He states that he is doing so-so this morning. States he has a little bit of abdominal pain. Had a small bowel movement last night. Physical Exam Vital Signs: Vital Signs: Last Vital Signs Temp 98.7 F 06/28/24 07:06 Pulse 100 06/28/24 07:06 Resp 16 06/28/24 07:06 BP 106/58 L 06/28/24 07:06 Pulse Ox 97 06/28/24 07:06 O2 Del Method Room Air 06/28/24 07:06 BMI result Body Mass Index 19.5 Const: General: no acute distress and lethargic Orientation/consciousness: lethargic GI: Inspection: No distended Palpation (GI): Soft to palpation, not firm, nontender, no guarding and not rigid Objective Data Active Medications Acetaminophen (Acetaminophen 325 Mg Tablet) 650 mg PO Q6H PRN PRN Reason: Pain, Mild 1-3,fever,headache Atorvastatin Calcium (Atorvastatin Calcium 80 Mg Tablet) 80 mg PO BEDTIME [facility] Last Admin: 06/27/24 21:56 Dose: 80 mg Documented By: IGOR Baclofen (Baclofen 10 Mg Tablet) 10 mg PO TID [facility] Last Admin: 06/28/24 07:20 Dose: 10 mg Documented By: ROBERT Bisacodyl (Bisacodyl 10 Mg Supp.Rect) 10 mg [place] Q8H PRN PRN Reason: Constipation, if no BM for 8 hrs after MOM Calcium Carbonate (Calcium Carbonate 750 Mg Tab.Chew) 750 mg PO Q4H PRN PRN Reason: Heartburn Carvedilol (Carvedilol 3.125 Mg Tablet) 3.125 mg PO BIDWM [facility]; Protocol Last Admin: 06/28/24 07:20 Dose: 3.125 mg Documented By: ROBERT Ceftriaxone Sodium (Ceftriaxone Sodium 1 Gm Vial) 1 gm IVPUSH Q24H [facility] Last Admin: 06/27/24 21:54 Dose: 1 gm Documented By: IGOR Docusate Sodium (Docusate Sodium 100 Mg/10 Ml Liquid) 100 mg PO DAILY [facility] Last Admin: 06/28/24 07:21 Dose: 100 mg Documented By: ROBERT Magnesium Hydroxide (Milk Of Magnesia 30 Ml Oral.Susp) 30 ml PO DAILY PRN PRN Reason: Constipation Melatonin (Melatonin 3 Mg Tablet) 6 mg PO BEDTIME PRN PRN Reason: Insomnia Last Admin: 06/27/24 21:56 Dose: 6 mg Documented By: IGOR Mirtazapine (Mirtazapine 7.5 Mg Tablet) 7.5 mg PO BEDTIME [facility] Last Admin: 06/27/24 21:56 Dose: 7.5 mg Documented By: IGOR Multivitamins/Vitamin C (Multivitamin Tablet) 1 tab PO DAILY [facility] Last Admin: 06/28/24 07:20 Dose: 1 tab Documented By: ROBERT Risperidone (Risperidone 0.5 Mg Tablet) 0.5 mg PO BID [facility] Last Admin: 06/28/24 07:21 Dose: 0.5 mg Documented By: ROBERT Sodium Biphosphate/Sodium Phosphate (Sodium Phosphate,[place]-Dibasic 133 Ml Enema) 118 ml [place] DAILY PRN PRN Reason: Constipation if no bm from bisacodyl Sodium Chloride (0.9 % Sodium Chloride Flush 3 Ml Syringe) 3 ml IVFLUSH QSHIFT [facility] Last Admin: 06/28/24 07:21 Dose: 3 ml Documented By: ROBERT Tamsulosin HCl (Tamsulosin Hcl 0.4 Mg Capsule) 0.8 mg PO DAILY [facility] Last Admin: 06/28/24 07:20 Dose: 0.8 mg Documented By: ROBERT Thiamine HCl (Thiamine Hcl 100 Mg Tablet) 100 mg PO DAILY [facility] Last Admin: 06/28/24 07:20 Dose: 100 mg Documented By: ROBERT Tramadol HCl (Tramadol Hcl 50 Mg Tablet) 50 mg PO Q8H PRN PRN Reason: Pain (Scale Score 4-6) Last Admin: 06/27/24 23:07 Dose: 50 mg Documented By: IGOR Labs 06/28/24 05:27 06/28/24 05:27 Labs: Laboratory Results - last 24 hr 06/27/24 06/28/24 04:42 05:27 MCV 81.5 MCH 26.5 L MCHC 32.5 RDW 16.8 H Plt Count 338 MPV 10.2 Absolute Nucleated RBC 0.000 Nucleated RBC % (auto) 0.0 Anion Gap 13 Estim Creat Clear Calc 75.1 Estimated GFR > 60 Random Glucose 106 Calcium 9.6 Lyme Screen IgG & IgM <0.90 Microbiology Microbiology Results: Microbiology 06/26/24 22:26 Blood Culture - Preliminary Blood - Venous No growth after 24 hours. 06/26/24 22:35 Blood Culture - Preliminary Blood - Venous No growth after 24 hours. 06/26/24 Unknown Urine Culture - Preliminary Urine Catheterized - Marte Catheter Culture too young to evaluate. Procedures Date of Service Date of Service: 06/28/24 Progress Note: A&P Assessment and plan (1) Chronic constipation: Status: Acute Plan 74-year-old male being followed for chronic constipation with large stool burden. He is experiencing mild pain. Patient passed a small bowel movement. Abdomen is soft and benign, nondistended. Patient can resume regular diet at tolerated Recommend continue bowel regimen General surgery will sign off, please reconsult as needed Time Spent With Patient Time: Total time managing care of this patient today ____ minutes. Quality Stroke Does the patient have a stroke diagnosis?: Yes Reason for No Anti-thrombotic by Day Two: N/A - Med Ordered VTE Prior VTE?: No VTE Risk Level:: Medical - moderate - high VTE Device Contraindication: N/A - Device Ordered VTE Drug Contraindication: Treatment Not Indicated
--- NOTE | 2024-06-28 09:17 | HO.PM.IMPN ---
Subjective Subjective Date of Service: 06/28/24 Interval History: back pain Physical Exam Vital Signs: Vital Signs: Last Vital Signs Temp 98.7 F 06/28/24 07:06 Pulse 100 06/28/24 07:06 Resp 16 06/28/24 07:06 BP 106/58 L 06/28/24 07:06 Pulse Ox 97 06/28/24 07:06 O2 Del Method Room Air 06/28/24 07:06 BMI result Body Mass Index 19.5 alert, oriented to name and year, minimally verbal, poor insight, contracted, hematuria Objective Data Active Medications Acetaminophen (Acetaminophen 325 Mg Tablet) 650 mg PO Q6H PRN PRN Reason: Pain, Mild 1-3,fever,headache Atorvastatin Calcium (Atorvastatin Calcium 80 Mg Tablet) 80 mg PO BEDTIME [facility] Last Admin: 06/27/24 21:56 Dose: 80 mg Documented By: IGOR Baclofen (Baclofen 10 Mg Tablet) 10 mg PO TID [facility] Last Admin: 06/28/24 07:20 Dose: 10 mg Documented By: ROBERT Bisacodyl (Bisacodyl 10 Mg Supp.Rect) 10 mg MS Q8H PRN PRN Reason: Constipation, if no BM for 8 hrs after MOM Calcium Carbonate (Calcium Carbonate 750 Mg Tab.Chew) 750 mg PO Q4H PRN PRN Reason: Heartburn Carvedilol (Carvedilol 3.125 Mg Tablet) 3.125 mg PO BIDWM [facility]; Protocol Last Admin: 06/28/24 07:20 Dose: 3.125 mg Documented By: ROBERT Ceftriaxone Sodium (Ceftriaxone Sodium 1 Gm Vial) 1 gm IVPUSH Q24H [facility] Last Admin: 06/27/24 21:54 Dose: 1 gm Documented By: IGOR Docusate Sodium (Docusate Sodium 100 Mg/10 Ml Liquid) 100 mg PO DAILY [facility] Last Admin: 06/28/24 07:21 Dose: 100 mg Documented By: ROBERT Magnesium Hydroxide (Milk Of Magnesia 30 Ml Oral.Susp) 30 ml PO DAILY PRN PRN Reason: Constipation Melatonin (Melatonin 3 Mg Tablet) 6 mg PO BEDTIME PRN PRN Reason: Insomnia Last Admin: 06/27/24 21:56 Dose: 6 mg Documented By: IGOR Mirtazapine (Mirtazapine 7.5 Mg Tablet) 7.5 mg PO BEDTIME [facility] Last Admin: 06/27/24 21:56 Dose: 7.5 mg Documented By: IGOR Multivitamins/Vitamin C (Multivitamin Tablet) 1 tab PO DAILY [facility] Last Admin: 06/28/24 07:20 Dose: 1 tab Documented By: ROBERT Risperidone (Risperidone 0.5 Mg Tablet) 0.5 mg PO BID [facility] Last Admin: 06/28/24 07:21 Dose: 0.5 mg Documented By: ROBERT Sodium Biphosphate/Sodium Phosphate (Sodium Phosphate,Elko-Dibasic 133 Ml Enema) 118 ml MS DAILY PRN PRN Reason: Constipation if no bm from bisacodyl Sodium Chloride (0.9 % Sodium Chloride Flush 3 Ml Syringe) 3 ml IVFLUSH QSHIFT [facility] Last Admin: 06/28/24 07:21 Dose: 3 ml Documented By: ROBERT Tamsulosin HCl (Tamsulosin Hcl 0.4 Mg Capsule) 0.8 mg PO DAILY [facility] Last Admin: 06/28/24 07:20 Dose: 0.8 mg Documented By: ROBERT Thiamine HCl (Thiamine Hcl 100 Mg Tablet) 100 mg PO DAILY [facility] Last Admin: 06/28/24 07:20 Dose: 100 mg Documented By: ROBERT Tramadol HCl (Tramadol Hcl 50 Mg Tablet) 50 mg PO Q8H PRN PRN Reason: Pain (Scale Score 4-6) Last Admin: 06/27/24 23:07 Dose: 50 mg Documented By: IGOR Labs 06/28/24 05:27 06/28/24 05:27 Labs: Laboratory Results - last 24 hr 06/27/24 06/28/24 04:42 05:27 MCV 81.5 MCH 26.5 L MCHC 32.5 RDW 16.8 H Plt Count 338 MPV 10.2 Absolute Nucleated RBC 0.000 Nucleated RBC % (auto) 0.0 Anion Gap 13 Estim Creat Clear Calc 75.1 Estimated GFR > 60 Random Glucose 106 Calcium 9.6 Lyme Screen IgG & IgM <0.90 Microbiology Microbiology Results: Microbiology 06/26/24 Unknown Urine Culture - Final Urine Catheterized - Marte Catheter 06/26/24 22:26 Blood Culture - Preliminary Blood - Venous No growth after 24 hours. 06/26/24 22:35 Blood Culture - Preliminary Blood - Venous No growth after 24 hours. Assessment and Plan (1) Pericardial effusion: Status: Acute Plan 74M PMH advanced vascular/Alzheimer's dementia chronically bed-bound with contractions, CVA with residual hemiplegia, prostate cancer, chronic indwelling Marte presented from group home with unwitnessed fall, noted to have significant hematuria, pyuria, bacteriuria. Pericardial effusion. Unwitnessed fall Fracture appears chronic as patient is non-weightbearing at baseline no intervention needed Catheter associated urinary tract infection complicated by hematuria Holding aspirin, urology eval, ceftriaxone, cultures - mixed milagro Moderate pericardial effusion cardio appreciated - likely chronic, follow up echo, if not hemodynamic instability - no further work up needed Chronic constipation Bowel regimen Advanced vascular/Alzheimer's dementia At risk for delirium, monitor closely History of CVA Holding aspirin, continue statin DVT prophylaxis-mechanical due to hematuria DNR/DNI reason for continued hospitalization: Awaiting echo Quality Stroke Does the patient have a stroke diagnosis?: Yes Reason for No Anti-thrombotic by Day Two: N/A - Med Ordered VTE Prior VTE?: No VTE Risk Level:: Medical - moderate - high VTE Device Contraindication: N/A - Device Ordered VTE Drug Contraindication: Treatment Not Indicated
--- NOTE | 2024-06-28 10:29 | MHC.CM.PN ---
Addendum entered by Hilda Santiago 06/28/24 10:33: Patient is a [facility] bed hold @ [facility]. Original Note: Patient has Alzheimer's Dementia; CM spoke with Daughter/HCP/Jane @ [phone] and addressed IMM with her (original will be mailed certified letter to HCP and a copy has been placed on the chart). Patient is a LTC Resident @ [facility] and returning there is the HCP's goal; CM has initiated and will follow for dc planning. Patient will require BLS transport at time of dc.
--- NOTE | 2024-06-28 10:30 | MHC.SL.SWA ---
Risk of Aspiration Due to: cognition lethargy Dysphasia Diet Status: NO CHANGE Liquid Consistency and Strategies for Safe Swallow: Liquid Intake Recommendation: Thin Liquid Intake Strategies: Small Sips Solid Food Consistency: Dietary Recommendations: Pureed (NDD1) Oral Medication Intake: Crushed with Puree Please contact the pharmacy regarding appropriate crushable or liquid drug formulations that are available whenever modified delivery is recommended. Compensatory Strategies and Precautions to be Taken for Safe Swallow: Sitting Upright (90 deg) Small Bites and Sips Oral Check Supervision While Eating and Drinking for Safe Swallow: Total Assistance (1:1) Swallowing Recommended Treatments: Compens. Strategy Educat. Recommendation for Speech: Inpatient Speech Therapy Comment: Recommend patient continue w/ baseline diet of PUREE solids and THIN liquids w/ pills CRUSHED in PUREE. Pt requires 1-1 ASSIST. Small bites and oral check. Ensure pt is awake and engaged in meal prior to offering PO. TELEVISION REPORTER to continue to follow. Frequency/Duration: Daily M-F Teacher Of Gifted Students Clinican/Clinical Fellow: No Supervisory Statement: I have reviewed and agree with the student/clinical fellow's documentation: N/A Speech Language Pathologist: Gloria Quiñonez M.A., CCC-TELEVISION REPORTER
[2024-06-28] MEDS: traMADoL HCL 50 MG TABLET PO (15:58)
--- NOTE | 2024-06-28 16:53 | HO.WOUND ---
Wound Consult: Initial 74yr old? admitted to [facility] on 06/27/24- See progress notes and H&P for detailed history.? Wound consult placed for Penis, Left Foot and Right foot.? Patient agreeable to assessment and photo documentation.? Of note the patient has significant contractures at baseline. Penis is noted for hypospadias - intact mucosal membrane - no topical interventions to site needed - recommend secure f/c in place with leg device securement device - in use at this time. Sacrum Etiology: ?DTI ?Present on Admission Wound Bed: intact dark nonblanchabel tissue Drainage / Odor: none Moni wound: MASD ? No Induration, Fluctuance or Warmth noted Pain: tenderness reported Goals of Treatment: ? Foam dressing to protect from friction and pressure Left Heel Etiology: resolving stage 3 full thickness PI ??Present on Admission Wound Bed: resolving resurfacing - dry Drainage / Odor: none Moni wound: ?hypo and hyper pigmentation noted No Induration, Fluctuance or Warmth noted Pain: denies Goals of Treatment: ? foam dressing to aid in protection Right Lateral foot Etiology: ?Stage 2 PI ?Present on Admission Wound Bed: red intact tissue Drainage / Odor: none Edges: ? irregular and attached Moni wound: dry flaking tissue ? No Induration, Fluctuance or Warmth noted Goals of Treatment: ? ? foam dressing to aid in protection Right Hip trochanter area - noted of evidence of pervious full thickness injury. Recommendations: 1. Turn and Reposition every 2 hours and as needed for patient comfort.? Use pillows or wedges to support off loading positions. 2. Off Load all bony prominences with use of pillows and heel boots if needed.? Apply Preventative foams where needed. ? 3. Monitor for incontinence and moisture control, use barrier creams when needed for prevention and treatment. 4. Provide adequate and supplemental nutrition.? 5. Continue low air loss mattress. 6. When applicable maintain blood glucose levels per Providers order. Sacrum and Bilateral Heels / feet - Off Load Pressure with Q2 hr turns and use of pillows - Cleanse with PH balance spray or wipes, pat dry. ?Apply foam dressing to aid in off loading and protection from friction. Change every 3 days and PRN. Re-consult wound care Nurse for wound deterioration or wound changes.
[2024-06-28] MEDS: Mirtazapine 7.5 MG TABLET PO (21:29)
[2024-06-28] MEDS: cefTRIAXone sodium 1 GM VIAL IVPUSH (21:29)
[2024-06-28] MEDS: Atorvastatin Calcium 80 MG TABLET PO (21:29)
[2024-06-29 03:28] VITALS: BP 115/56; PULSE 74; RESP 16; TEMP 36.5; O2SAT 96
[2024-06-29 06:00] LABS: Hematocrit 25.8 % (42.0-52.0); Hemoglobin 8.4 g/dl (14.0-18.0); Mean Corpuscular HGB Conc 32.6 g/dl (31.0-36.0); Mean Corpuscular Hemoglobin 26.8 pg (27.0-33.0); Mean Corpuscular Volume 82.2 fL (80.0-98.0); Mean Platelet Volume 10.3 fL (9.4-12.4); Platelet Count 324 X10*3/uL (160-400); Red Blood Count 3.14 X10*6/uL (4.60-5.80); Red Cell Distribution Width 16.8 % (11.0-16.0)
[2024-06-29 06:24] LABS: Anion Gap 11 (12-20); Blood Urea Nitrogen 15 mg/dL (9-16); Calcium 10.1 mg/dL (8.4-10.2); Carbon Dioxide 29 mmol/L (22-29); Chloride 106 mmol/L (96-108); Creatinine Clr Calc Pharmacy 75.1; Estimated Glomerular Filt Rate > 60; Glucose Random 87 mg/dL (60-115); Potassium 3.8 mmol/L (3.3-5.1); Sodium 142 mmol/L (135-145)
[2024-06-29 07:39] VITALS: BP 113/64; PULSE 81; RESP 16; TEMP 36.8; O2SAT 97
--- NOTE | 2024-06-29 08:48 | P.DS_ITS ---
DS: Providers Provider Date of Service: 06/29/24 Date of admission: 06/27/24 01:01 Date of discharge: 06/29/24 Primary care physician: Unknown Physician Consults: 06/27/24 01:01 Consult to General Surgery Routine Consulting Provider: [facility] General Surgeons Reason for consultation: ILEUS Consult to Orthopedics Routine Consulting Provider: [facility] Orthopedic Surgeons Reason for consultation: abnormal Ct HIP 06/27/24 01:04 Consult to Cardiology Routine Consulting Provider: [facility] Cardiovascular Specialists Reason for consultation: pericardial effusion 06/27/24 09:14 Consult to Urology Routine Consulting Provider: [facility] Urology Services Reason for consultation: hematuria 06/27/24 15:41 Consult to Wound Care Routine Reason for consultation: left foot wounds DS: Diagnosis Discharge Diagnosis (1) Pericardial effusion: Status: Acute DS: Summary Hospital Course Hospital Course: admission hpi Chief Complaint: FAll 74-year-old male with a past medical history of CKD, anemia, prostate cancer, CVA with residual hemiplegia, chronic contractures of the extremities, and chronic indwelling Marte, long-term resident, presented to the hospital with a chief complaint of fall. Patient is alert and awake, does not appear to be in distress, and is lying in bed comfortably. Patient reported a fall prior to arrival at the hospital. Most of the history was obtained from medical records and long-term staff. Reportedly, the patient sustained an unwitnessed fall from bed at the long-term and was subsequently brought to the hospital for evaluation. Patient denies chest pain or palpitations. Denies cough or sputum production. Review of other systems is limited. ER course: Per ER team, patient has chronic contractures and is bed-bound; exam limited. CT head and CT C-spine showed no acute findings. 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 Also noted was a left hip joint effusion. CT also showed a small amount of blood products in the lower pelvis adjacent to the urinary bladder. Orthopedics team was consulted and recommended no acute intervention. CTA chest showed no evidence of PE but revealed a moderate pericardial effusion. Cardiology was consulted and recommended admission with echocardiogram in the morning. Urinalysis was abnormal, consistent with UTI. Marte catheter was changed in the ER, and the patient was started on ceftriaxone. hospital course: 74M PMH advanced vascular/Alzheimer's dementia chronically bed-bound with contractions, CVA with residual hemiplegia, prostate cancer, chronic indwelling Marte presented from long-term with unwitnessed fall, noted to have significant hematuria, pyuria, bacteriuria, Pericardial effusion and Likely displaced greater trochanteric fracture of the left femur--deemed chronic as patient is non-weightbearing at baseline Unwitnessed fall and found to have left trohanteric fracture of the femur. Seen by ortho. The fracture appears chronic as patient is non-weightbearing at baseline no intervention needed Catheter associated urinary tract infection complicated by hematuria. Hematuria resolved. Urology is planning no intervention. Urine culture mixed floar. He has been on Ceftriaxone, will transition to oral Ceftin 250 bid for 10 days. Hold Aspirin. Hematuria has stopped, likely from cystitis and can follow up with urology on outpatient basis Moderate pericardial effusion--on CT, likely chronic per cardiology and no hemodynamic instability. Echo on 06/28 showed - 1. Moderately reduced LV ejection fraction 35-40% with impaired relaxation filling pattern 2. Normal cardiac valvular Dopplers 3. Trivial pericardial effusion. No further testing indicated per cardiology Chronic constipation with large stool burden, continue bowel regimen, has had bowel movement, seen by surgery and no intervention needed Advanced vascular/Alzheimer's dementia At risk for delirium, monitor closely History of CVA Holding aspirin, continue statin, reasssess use of aspirin in the future. Time Attestation Discharge Coordination Time (in mins): 40 Quality: Safe Use of Opioids Does Pt have an Active Cancer Diagnosis on the Problem List?: No Quality: Stroke Does the patient have a stroke diagnosis?: No Physical Exam Vital Signs: Vital Signs: Last Vital Signs Temp 98.2 F 06/29/24 07:39 Pulse 81 06/29/24 07:39 Resp 16 06/29/24 07:39 BP 113/64 06/29/24 07:39 Pulse Ox 97 06/29/24 07:39 O2 Del Method Room Air 06/29/24 07:39 BMI result Body Mass Index 19.5 DS: Data Data Completed and Pending Labs on day of discharge: Laboratory Results - last 24 hr 06/27/24 06/29/24 04:42 05:31 WBC 6.0 RBC 3.14 L Hgb 8.4 L Hct 25.8 L MCV 82.2 MCH 26.8 L MCHC 32.6 RDW 16.8 H Plt Count 324 MPV 10.3 Absolute Nucleated RBC 0.000 Nucleated RBC % (auto) 0.0 Sodium 142 Potassium 3.8 Chloride 106 Carbon Dioxide 29 Anion Gap 11 L BUN 15 Creatinine 0.74 Estim Creat Clear Calc 75.1 Estimated GFR > 60 Random Glucose 87 Calcium 10.1 Lyme Progressive Test TNP Preliminary micro results at discharge 06/26/24 22:35 Blood Culture - Preliminary Blood - Venous No growth after 48 hours. 06/26/24 22:26 Blood Culture - Preliminary Blood - Venous No growth after 48 hours. Discharge Plan Discharge Anticipated Discharge Date/Time: 06/29/24 11:22 Patient Disposition: er [facility] Discharge Diagnosis: UTI, hematuria, fall, Referrals: [facility] [Outside] - 1 Week Virgilio Manuel MD [Physician] - 1 Week Physician,Carrie J [Primary Care Provider] - 1 Week Discharge Medications: New polyethylene glycol 3350 [Miralax] 17 gram/dose powder 17 g PO DAILY PRN (Reason: constipation) Qty: 510 0RF cefuroxime axetil 250 mg tablet 250 mg PO BID 7 Days Qty: 14 0RF Continued carvedilol 3.125 mg tablet 3.125 mg PO BID tamsulosin 0.4 mg capsule 0.8 mg PO BEDTIME amlodipine 10 mg tablet 10 mg PO DAILY risperidone 0.5 mg tablet 0.5 mg PO BID rosuvastatin 40 mg tablet 40 mg PO BEDTIME thiamine HCl (vitamin B1) 100 mg Tablet 100 mg PO DAILY baclofen 10 mg Tablet 10 mg PO TID acetaminophen [Tylenol] 325 mg Tablet 650 mg PO Q6H PRN (Reason: Pain (Scale Score 1-3)) tramadol 50 mg Tablet 50 mg PO Q8H PRN (Reason: Pain (Scale Score 4-6)) docusate sodium [Colace] 100 mg Capsule 100 mg PO DAILY mirtazapine 7.5 mg Tablet 7.5 mg PO DAILY multivitamin Tablet 1 tab PO DAILY ondansetron HCl 4 mg Tablet 4 mg PO Q4H PRN (Reason: Nausea And Vomiting) aspirin 81 mg Tablet,Delayed Release (Dr/Ec) 81 mg PO DAILY magnesium hydroxide [Milk of Magnesia] 400 mg/5 mL Suspension 30 ml PO DAILY PRN (Reason: Constipation) bisacodyl 10 mg Suppository 10 mg GA Q8H PRN (Reason: Constipation, if no BM for 8 hrs after MOM) Fleet Enema 19-7 gram/118 mL Enema 118 ml GA DAILY PRN (Reason: Constipation if no bm from bisacodyl) psyllium husk 3 gram/3 gram Powder 3 g PO DAILY cholecalciferol (vitamin D3) 25 mcg (1,000 unit) capsule 25 mcg PO DAILY Discharge Orders: Discharge Order (Routine); Ordered 06/29/24 Ordered By: Romeo Allen Diet: Advance to usual diet Activity on Discharge: As tolerated Stand Alone Forms: Patient Portal Discharge page Print Language: Setswana Care Plan Goals: recovery from fall, uti, hematuria, and chronic constipation Health Concerns: advanced dementia uti, constipation, hematuria, pericardial effusion Plan of Treatment: ceftin for uti hold Aspirin, agresive bowel regimen close monitoring to prevent falls outpatient urology follow up Assessment: see above
[2024-06-29] MEDS: Thiamine HCL 100 MG TABLET PO (10:43)
[2024-06-29] MEDS: risperiDONE 0.5 MG TABLET PO (10:43)
[2024-06-29] MEDS: Multivitamin TABLET 1 TAB PO (10:43)
[2024-06-29] MEDS: Tamsulosin HCL 0.4 MG CAPSULE 0.8 MG PO (10:43)
[2024-06-29] MEDS: Baclofen 10 MG TABLET PO (10:44)
[2024-06-29] MEDS: Docusate Sodium 100 MG/10 ML LIQUID PO (10:44)
[2024-06-29] MEDS: carvediloL 3.125 MG TABLET PO (10:44)
[2024-06-29] MEDS: 0.9 % Sodium Chloride Flush 3 ML SYRINGE IVFLUSH (10:57)
--- NOTE | 2024-06-29 11:00 | MHC.CM.PN ---
Per MD, Patient is medically cleared for dc today to LTC. Patient will return to LTC @ [facility] today at 2PM, via [facility]. KIKO spoke with LUDMILA/Jane @ [phone] and informed her of the dc plan; she is in agreement. Last IMM addressed on 06/28/2024.
[2024-06-29 11:15] VITALS: BP 122/74; PULSE 99; RESP 16; TEMP 36.7; O2SAT 97
--- NOTE | 2024-06-29 12:21 | MHC.SLORD ---
Speech Language Pathology Order Status: NATURAL GAS INSPECTOR attempted dysphagia treatment today but pt did not respond. Pt kept eyes closed, adjusting his position but remaining nonverbal. RN noted pt had eaten minimal amounts of breakfast with no observed difficulties. Pt d/c is planned for today back to rehab facility, recc NATURAL GAS INSPECTOR at [facility] continue tx to facilitate managing pt dysphagia.
== END 2024-06-29 14:49 | disposition home or self-care (01) | DRG 699 ==
LOC: HO.ED 22:07 → HO.EDOVER 06-27 01:09 → HO.IMC 06-27 14:23
PROVIDERS: Internal Medicine; Physician Assistant Medical; Admitting Provider Hospitalist; Emergency Provider Emergency Medicine Emergency Medical Services; Visit Provider Internal Medicine
DX: T83.511A Infection and inflammatory reaction due to indwelling urethral catheter, initial encounter (principal); I31.39 Other pericardial effusion (noninflammatory); K56.7 Ileus, unspecified; N39.0 Urinary tract infection, site not specified; R31.9 Hematuria, unspecified; K59.09 Other constipation; W06.XXXA Fall from bed, initial encounter; Z66 Do not resuscitate; G30.9 Alzheimer's disease, unspecified; F02.80 Dementia in other diseases classified elsewhere, unspecified severity, without behavioral disturbance, psychotic disturbance, mood disturbance, and anxiety; F01.50 Vascular dementia, unspecified severity, without behavioral disturbance, psychotic disturbance, mood disturbance, and anxiety; Z74.01 Bed confinement status; Z79.82 Long term (current) use of aspirin; Z79.899 Other long term (current) drug therapy
CPT/HCPCS: 36415; 70450; 71045; 71275; 72100; 72125; 72170; 73700; 74176; 80048; 80053; 81001; 82272; 82550; 83605; 83690; 83735; 84484; 85025; 85027; 85379; 85652; 86140; 86617; 86618; 87040; 87086; 92526; 92610; 93005; 93306; 99285; J0131; J0696; J2250; Q9957; Q9967

== ENCOUNTER → 2024-06-26 16:40 | Outpatient (BNV) | payer MEDICARE, MEDICAID, SELFPAY | PROVIDERS: Emergency Provider Emergency Medicine Emergency Medical Services; Visit Provider Radiology Diagnostic Radiology | DX: R79.89 Other specified abnormal findings of blood chemistry (principal); M25.552 Pain in left hip; M54.2 Cervicalgia; S09.90XA Unspecified injury of head, initial encounter; M54.50 Low back pain, unspecified; I51.7 Cardiomegaly; R10.2 Pelvic and perineal pain | CPT/HCPCS: 70450; 71045; 71275; 72100; 72125; 72170; 73700 ==

== ENCOUNTER 2024-06-27 01:01 | Outpatient (BNV) | payer MEDICARE, SELFPAY | END 2024-06-28 07:00 | PROVIDERS: Admitting Provider Hospitalist; Emergency Provider Emergency Medicine Emergency Medical Services; Visit Provider Internal Medicine Cardiovascular Disease | DX: I42.2 Other hypertrophic cardiomyopathy (principal); I31.39 Other pericardial effusion (noninflammatory) | CPT/HCPCS: 93306 ==

== ENCOUNTER → 2024-06-27 01:01 | Outpatient (BNV) | payer MEDICARE, SELFPAY | PROVIDERS: Admitting Provider Hospitalist; Emergency Provider Emergency Medicine Emergency Medical Services; Visit Provider Internal Medicine Cardiovascular Disease | DX: I31.39 Other pericardial effusion (noninflammatory) (principal) | CPT/HCPCS: 99222 ==

== ENCOUNTER → 2024-06-27 01:01 | Outpatient (BNV) | payer MEDICARE, SELFPAY | PROVIDERS: Admitting Provider Hospitalist; Emergency Provider Emergency Medicine Emergency Medical Services | DX: K59.09 Other constipation (principal) | CPT/HCPCS: 99232 ==

== ENCOUNTER → 2024-06-27 01:01 | Outpatient (BNV) | payer MEDICARE, SELFPAY | PROVIDERS: Admitting Provider Hospitalist; Emergency Provider Emergency Medicine Emergency Medical Services; Visit Provider Hospitalist | DX: I31.39 Other pericardial effusion (noninflammatory) (principal) | CPT/HCPCS: 99232 ==

== ENCOUNTER 2024-07-28 08:37 | Outpatient (AMB) | payer MEDICARE, SELFPAY ==
--- NOTE | 2024-07-28 08:39 | A.OFFVIS_ITS ---
Intake Visit Reasons: chronic velasquez fadi/prostate cancer-discuss SPT? Intake Note: Patient is present for CHRONIC VELASQUEZ FADI/PROSTATE CANCER-DISCUSS SPT Urology Medication:VITAMIN B1,TAMSULOSIN Antibiotic Allergy:NONE Blood Thinner:ASPIRIN Hand Tool Lapper Required: No Allergies No Known Allergies [No Known Allergies*] Allergy (Verified 07/28/24 08:43) HPI Comments Details: Joshua is a pleasant male. Accompanied by his daughter. He seen for the following urologic conditions - iatrogenic hypospadias - neurogenic bladder Stroke 2023 with significant residual deficits Neurogenic bladder Had recurrent UTI with iatrogenic hypospadias Velasquez catheter Prior prostatectomy with external beam radiation 2014 Recommend suprapubic tube placement with ultrasound guidance [facility] Medical History (Updated 07/28/24 @ 09:08 by Virgilio Manuel MD) Chronic constipation Hyperlipidemia Abnormal EKG HTN (hypertension) Prostate cancer Bowel obstruction Family History Mother No problems noted. Father HTN (hypertension) Social History Household Members: Other Housing: Care Home Do you presently have visiting nurse or other home services: Yes Alcohol intake: never Patient Tobacco Use Status: Never used Tobacco service: No Review of Systems Const Denies chills and Denies fever(s) Card Reports no additional complaints and Denies syncope Resp Denies cough GI Denies abdominal pain and Denies heartburn Reports as per HPI and Denies change in libido Neuro Denies syncope Psych Denies change in libido Endo Denies change in libido Physical Exam Const General: cooperative, healthy appearing, comfortable and no acute distress Orientation/consciousness: patient oriented x3 HEENT Face and sinus: Yes normal facial exam Mouth: moist mucous membranes Neck Neck: Yes normal visual inspection, Yes full ROM and Yes trachea midline Chest Chest palpation & inspection: normal inspection of the chest Resp Effort & Inspection: normal respiratory effort, able to speak in complete sentences and no respiratory distress GI Inspection: Yes normal to inspection Back/Spine/Pelvis Cervical Spine: normal cervical lordosis Thoracic/Lumbar Spine: thoracic and lumbar spine normal to inspection Skin General skin exam: no rashes or lesions noted Neuro General: patient oriented x3, gait normal, tone normal and moves all extremities Extrem General: Yes normal to inspection and Yes capillary refill normal Assessment & Plan Assessment & Plan (1) Hypospadias in male: Code(s): Q54.9 - Hypospadias, unspecified Category: Medical (2) Urinary tract infection: Code(s): N39.0 - Urinary tract infection, site not specified Category: Medical Plan Risks, benefits and alternatives to therapy were discussed. These include but are not limited to infection, bleeding, damage to local organs and tissues, need for further interventions. Anesthetic risks regarding cardiac arrhythmia, blood clots, and potential mortality were discussed. The patient understands the typical recovery time and the outpatient nature of the procedure. After consideration of these risks the patient gives full informed consent and they wish to move ahead with the procedure. - cystoscopy suprapubic tube placement Patient Instructions: This note is constructed using voice recognition software. While every effort has been made to ensure accuracy psychology professor errors may have been included. Imaging studies, laboratory and physical exam results were discussed and reviewed in detail. No major barriers to patient understanding were identified. An opportunity to ask questions regarding the treatment plan was provided. All questions were answered. The patient expressed understanding and agreement with the above treatment plan. The patient is aware they should contact our office by phone for worsening of their current condition or the appearance of new urologic symptoms. Compliance is encouraged with any medications and followup testing that is ordered. It is a privilege to participate in the urologic care of your patient. If you have any questions or concerns regarding treatment for the above conditions, or other urologic issues, please do not hesitate to contact me. The office telephone contact is [phone]. Sincerely, Dr Virgilio Manuel MD, [facility] - Urology Compassionate Specialist Care for the Genitourinary System Coding Level of Care Code New Pt Level 4 (68456) Diagnoses Hypospadias in male Q54.9 Urinary tract infection N39.0
--- OUTSIDE RECORDS SUMMARY | 2024-07-28 08:53 | XMS_ITS | Encounter Summary ---
Author Organization [facility] Address [id number] [place] [id number] Care Team Providers Care Stage Manager Name Role Phone Virgen Grewal MD Primary Care Provider + Encounter Details Date Type Department Care Team (Late st Contact Info) Description 07/10/2024 Lab Requisition [facility] - Main Lab [address] [facility] [place] [address] Virgen Grewal MD [address] [phone] Essential (primary) hypertension Social History Tobacco Use Types Packs/Day Years Used Date Smoking Tobacco: Never Assessed Sex and Gender Information Value Date Recorded Sex Assigned at Not on file Legal Sex Male 2:30 PM EST Gender Identity Not on file Sexual Orientation Not on file documented as of this encounter Plan of Treatment Not on file documented as of this encounter Procedures Procedure Name Priority Date/Time Associated Diagnosis Comments COMPLETE BLOOD COUNT Routine 07/12/2024 8:19 AM EDT Essential (primary) hypertension BASIC METABOLIC PANEL Routine 07/12/2024 8:19 AM EDT Essential (primary) hypertension documented in this encounter Results * (ABNORMAL) Basic metabolic panel (07/12/2024 8:19 AM EDT) Sodium 142 133 - 145 mmol/L LAB CHEMISTRY METHOD 07/12/2024 12:41 PM EDT [facility] Potassium 4.1 3.5 - 5.5 mmol/L LAB CHEMISTRY METHOD 07/12/2024 12:41 PM EDT [facility] Chloride 107 96 - 110 mmol/L LAB CHEMISTRY METHOD 07/12/2024 12:41 PM [facility] CO2 25 21 - 32 mmol/L LAB CHEMISTRY METHOD 07/12/2024 12:41 PM [facility] Anion Gap 10 3 - 11 LAB CHEMISTRY METHOD 07/12/2024 12:41 PM [facility] Glucose 76 70 - 100 mg/dL LAB CHEMISTRY METHOD 07/12/2024 12:41 PM [facility] BUN 26(H) 5 - 25 mg/dL LAB CHEMISTRY METHOD 07/12/2024 12:41 PM [facility] Creatinine 0.57(L) 0.70 - 1.30 mg/dL LAB CHEMISTRY METHOD 07/12/2024 12:41 PM [facility] eGFR 104 >=60 mL/min/1. 73m2 LAB CHEMISTRY METHOD 07/12/2024 12:41 PM [facility] Comment:Calculation based on the Chronic Kidney Disease Epidemiology Collaboration (CKD-EPI) equation refit without adjustment for race. BUN/Creatinine Ratio 45.6 LAB CHEMISTRY METHOD 07/12/2024 12:41 PM [facility] Calcium 9.8 8.5 - 10.5 mg/dL LAB CHEMISTRY METHOD 07/12/2024 12:41 PM [facility] Blood Venous blood specimen / Unknown Venipuncture / Unknown 07/12/2024 8:19 AM EDT 07/12/2024 10:42 AM EDT us Virgen Grewal MD LAB BLOOD ORDERABLES Fin al Result [facility] [address] [place] [address], * (ABNORMAL) Complete blood count (07/12/2024 8:19 AM EDT) WBC 7.6 4.8 - 10.8 K/mcL LAB HEMETOLOGY METHOD 07/12/2024 11:24 AM [facility] RBC 3.20(L) 4.50 - 5.50 M/mcL LAB HEMETOLOGY METHOD 07/12/2024 11:24 AM [facility] Hemoglobin 8.8(L) 13.5 - 17.5 g/dL LAB HEMETOLOGY METHOD 07/12/2024 11:24 AM [facility] Hematocrit 28.3(L) 42.0 - 54.0 % LAB HEMETOLOGY METHOD 07/12/2024 11:24 AM [facility] MCV 87.6 79.0 - 98.0 FL LAB HEMETOLOGY METHOD 07/12/2024 11:24 AM [facility] MCH 27.2 27.0 - 32.0 pcg LAB HEMETOLOGY METHOD 07/12/2024 11:24 AM [facility] MCHC 31.1(L) 32.0 - 37.0 g/dL LAB HEMETOLOGY METHOD 07/12/2024 11:24 AM [facility] RDW 16.4(H) 11.0 - 15.0 % LAB HEMETOLOGY METHOD 07/12/2024 11:24 AM [facility] Platelets 282 130 - 400 K/[facility] LAB HEMETOLOGY METHOD 07/12/2024 11:24 AM [facility] MPV 12.1(H) 7.0 - 11.0 FL LAB HEMETOLOGY METHOD 07/12/2024 11:24 AM [facility] NRBC 0.0 <1.0 % LAB HEMETOLOGY METHOD 07/12/2024 11:24 AM [facility] NRBC Absolute 0.00 <0.10 K/[facility] LAB HEMETOLOGY METHOD 07/12/2024 11:24 AM EDT [facility] Blood Venous blood specimen / Unknown Venipuncture / Unknown 07/12/2024 8:19 AM EDT 07/12/2024 10:42 AM EDT us Virgen Grewal MD LAB BLOOD ORDERABLES Fin al Result [facility] [address] [place] [address], documented in this encounter Visit Diagnoses Diagnosis Essential (primary) hypertension Unspecified essential hypertension documented in this encounter Care Teams Stage Manager Relationship Specialty Start Date End Date Virgen Grewal MD [address] [place] [id number] PCP - General Family Medicine 06/03/24 documented as of this encounter
== END 2024-07-28 09:10 | disposition home or self-care (01) ==
LOC: HO.HUSH 08:37
PROVIDERS: Visit Provider Urology
DX: Q54.9 Hypospadias, unspecified (principal); N39.0 Urinary tract infection, site not specified
CPT/HCPCS: 99204

== ENCOUNTER → 2024-07-28 08:37 | Outpatient (BNVA) | payer MEDICARE, SELFPAY | PROVIDERS: Visit Provider Urology | DX: Q54.9 Hypospadias, unspecified (principal); N39.0 Urinary tract infection, site not specified | CPT/HCPCS: 99202 ==

== ENCOUNTER 2024-09-17 09:33 | Emergency (ER) | payer MEDICARE, SELFPAY ==
[2024-09-17] VITALS (9 sets, daily range): BP systolic 62–113; BP diastolic 4–78; PULSE 55–137; RESP 6–555; TEMP -17.7–39.2; O2SAT 83–98; BMI 16.7
--- NOTE | ~2024-09-17 | XR_ITS ---
CLINICAL HISTORY: febrile, altered 1 view chest x-ray Comparison: CT - CT CHEST ANGIOGRAPHY WITH IV CONTRAST - 06/26/24 17:[address]/SR - CT ANGIO CHEST PE PROTOCOL - 06/26/24 17:48 EDT CR - XR CHEST 1V - 06/26/24 17:22 EDT Findings: No consolidation or effusion. There is enlargement of the cardiopericardial silhouette. No acute fracture. IMPRESSION: 1. No acute findings. This document has been electronically signed by: Denise Samuel MD on 09/17/2024 13:14:15
--- NOTE | 2024-09-17 09:42 | ECG_ITS ---
Test Reason : SEPSIS WORK UP Blood Pressure : */* mmHG Vent. Rate : 117 BPM Atrial Rate : 117 BPM P-R Int : 140 ms QRS Dur : 130 ms QT Int : 362 ms P-R-T Axes : 66 70 31 degrees QTcB Int : 504 ms Sinus tachycardia with with intermittent aberrant ventricular conduction Cannot rule out Anterior infarct (cited on or before 26-Jun-2024) Abnormal ECG When compared with ECG of 26-Jun-2024 16:50, QRS axis Shifted right Aberrant conduction is intermittent Referred By: Alba Cardona Electronically Signed By: YONATAN MATHEWS MD
--- NOTE | 2024-09-17 09:42 | ED_ITS ---
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 Patient responsive to painful stimuli for EMS. Patient unable to report any history or complaints. Daughter states that he has been in and out of the hospital with rapid decline over the past year following his CVA. MD complaint: AMS Related Data Home Medications ?Medication ?Instructions ?Recorded ?Confirmed cholecalciferol (vitamin D3) 25 25 mcg PO DAILY 06/26/24 mcg (1,000 unit) capsule acetaminophen 325 mg tablet 650 mg PO Q6H PRN Pain (Sc sonido 06/26/24 06/27/24 (Tylenol) Score 1-3) amlodipine 10 mg tablet 10 mg PO DAILY 06/26/2406/16 baclofen 10 mg tablet 10 mg PO TID 06/26/24 carvedilol 3.125 mg tablet 3.125 mg PO BID 06/26/24 docusate sodium 100 mg capsule 100 mg PO DAILY 5 06/27/24 (Colace) mirtazapine 7.5 mg tablet 7.5 mg PO DAILY 06/26/2402/09 risperidone 0.5 mg tablet 0.5 mg PO BID 06/26/2406/27 rosuvastatin 40 mg tablet 40 mg PO BEDTIME 06/26/24 tamsulosin 0.4 mg capsule 0.8 mg PO BEDTIME 06/26/24 0 06/27/24 thiamine HCl (vitamin B1) 100 mg 100 mg PO DAILY 06/2606/26/24 tablet tramadol 50 mg tablet 50 mg PO Q8H PRN Pain (Scale Score 06/26/24 06/27/24 4-6) aspirin 81 mg tablet,delayed 81 mg PO DAILY 06/27/24 0 06/27/24 release bisacodyl 10 mg rectal suppository 10 mg CO Q8H PRN Co nstipation, if 06/27/24 06/27/24 no BM for 8 hrs after MOM magnesium hydroxide 400 mg/5 mL 30 ml PO DAILY PRN Con stipation 06/27/24 06/27/24 oral suspension (Milk of Magnesia) multivitamin 1 tab PO DAILY 06/27/2406/16 ondansetron HCl 4 mg tablet 4 mg PO Q4H PRN Nausea And Vomiting 06/27/24 06/27/24 psyllium husk 3 gram/3 gram oral 3 g PO DAILY Constipa tion 06/27/24 06/27/24 powder sodium phosphates 19 gram-7 118 ml CO DAILY PRN Consti pation 06/27/24 06/27/24 gram/118 mL enema (Fleet Enema) if no bm from bisacody l Previous Rx's ?Medication ?Instructions ?Recorded cefuroxime axetil 250 mg tablet 250 mg PO BID 7 days # 14 tabs 06/29/24 polyethylene glycol 3350 17 17 g PO DAILY PRN constipa tion 06/29/24 gram/dose oral powder (Miralax) #510 grams acetaminophen 650 mg rectal 650 mg CO Q6H PRN mild christina n (scale 09/17/24 suppository score 1-4) 1 week #50 ea bisacodyl 10 mg rectal suppository 10 mg CO DAILY PRN constipation 09/17/24 #12 ea haloperidol 0.5 mg tablet 0.5 mg PO Q4H PRN nausea and 09/17/24 vomiting #30 tabs hyoscyamine sulfate 0.125 mg 0.125 mg PO Q4H PRN secre tions #30 09/17/24 sublingual tablet tabs lorazepam 0.5 mg tablet 0.5 mg PO Q4H PRN anxiety #3 0 tabs 09/17/24 morphine concentrate 100 mg/5 mL 5 mg (0.25 mL) PO Q1H PRN pain 09/17/24 (20 mg/mL) oral solution #120 mL Allergies Allergy/AdvReac Type Severity Reaction Status Date / Time No Known Allergies (No Known Allergy Verified 09/17/24 10:05 Allergies*) Review of Systems 2 Review of Systems: as per [facility] Past Medical History Medical History (Updated 09/17/24 @ 14:01 by Alba Cardona NP) Chronic constipation Hyperlipidemia Abnormal EKG HTN (hypertension) Prostate cancer Bowel obstruction Family History Family History Mother No problems noted. Father HTN (hypertension) Social History Social History Household Members: Other Housing: Skilled Nursing Do you presently have visiting nurse or other home services: Yes Alcohol intake: never Patient Tobacco Use Status: Never used Tobacco Smoked in Last 30 Days: No Use of substances other than those prescribed or required for medical reasons: No Advance Directives: Yes Advance Directives on File: Yes Advance Directives Date on File: 06/26/24 service: No Physical Exam ED Vital Signs: Vital Signs - 24 hr 09/17/24 09:42 09/17/24 10:02 09/17/24 10:25 Temperature 102.5 F H Pulse Rate 137 H 124 H Pulse Rate [Monitor] 137 H Respiratory Rate 36 H 25 H Blood Pressure 69/43 L 75/42 L Pulse Oximetry 97 93 Oxygen Delivery Method Room Air Nasal Cannula Oxygen Flow Rate 6 09/17/24 10:36 09/17/24 11:13 09/17/24 11:23 Temperature 99.3 F 99.9 F Pulse Rate 123 H 112 H 114 H Pulse Rate [Monitor] Respiratory Rate 30 H 22 H 23 H Blood Pressure 70/42 L 77/43 L 62/5 L Pulse Oximetry 87 L 97 98 Oxygen Delivery Method Nasal Cannula Room Air Nasal Cannula Oxygen Flow Rate 6 6 6 09/17/24 11:37 09/17/24 13:43 Temperature 99.7 F 97.5 F Pulse Rate 55 104 H Pulse Rate [Monitor] Respiratory Rate 555 H 20 Blood Pressure 81/4 L 66/37 L Pulse Oximetry 96 83 L Oxygen Delivery Method Nasal Cannula Nasal Cannula Oxygen Flow Rate 6 6 BMI result Body Mass Index 16.7 febrile, severe hypotension, tachycardic Const General: awake, ill appearing chronically and lethargic; No healthy appearing Nutritional Appearance: cachectic Orientation/consciousness: lethargic Limitations: altered mental status and physical limitations HENMT Head: Yes normocephalic and Yes atraumatic Ears: external ears normal General nose exam: Normal external nose present Face and sinus: Yes face symmetric Throat: Yes posterior oropharynx normal Eyes Pupils: Equal, round and reactive pupils present Resp Effort & Inspection: tachypneic Auscultation: diminished lung sounds diffuse Cardio Rate: tachycardic Rhythm: regular rhythm Heart sounds: S1 normal heart sound present and S2 normal heart sound present GI Palpation (GI): Soft to palpation and nontender Other: indwelling urinary catheter present upon arrival draining purulent discharge Penis: other Skin Other: face diaphoretic Neuro Other: all extremities contracted, nonverbal Cranial nerves: Yes Equal, round and reactive pupils present Cognition (Neuro): abnormal cognition Extrem Other: all extremities Medications Administered Discontinued Medications Generic Name Dose Route Start Last Admin Trade Name Freq PRN Reason Stop Dose Admin Cefepime HCl 2 gm in 50 mls @ 100 mls/hr 09/17/24 09:48 09/17/24 11:07 Maxipime IV 09/17/24 10:17 Infused ONCE ONE Infusion Acetaminophen 1,000 mg in 100 mls @ 400 mls/hr 09/17/24 09:57 09/17/24 10:57 Ofirmev IV 09/17/24 10:11 Infused ONCE ONE Infusion Lactated Ringer's 1,000 mls @ 999 mls/hr 09/17/24 10:00 09/17/24 11:45 Lr IV 09/17/24 11:00 Infused .Q1H1M DIXON Infusion Lactated Ringer's 500 mls @ 999 mls/hr 09/17/24 10:00 09/17/24 12:49 Lr IV 09/17/24 10:30 Not Given .Q31M DIXON Lactated Ringer's 1,000 mls @ 999 mls/hr 09/17/24 11:45 09/17/24 12:45 Lr IV 09/17/24 12:45 Infused .Q1H1M DIXON Infusion Lorazepam 0.5 mg 09/17/24 14:56 09/17/24 15:07 Lorazepam 0.5 Mg Tablet PO 09/17/24 14:57 0.5 mg ONCE ONE Administration Morphine Sulfate 5 mg 09/17/24 14:56 09/17/24 15:08 Morphine Sulfate Oral Carmita 10 Mg/5 Ml Solution PO 09/17/24 14:57 5 mg ONCE ONE Administration Scopolamine 1.5 mg 09/17/24 14:56 09/17/24 15:07 Scopolamine 1.5 Mg Patch.Td.3 EAR-BEHIND 09/17/24 14:57 1.5 mg ONCE ONE Administration Medical Decision Making Medical Decision Making 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 Patient initially activated as sepsis alert due to fever, tachycardia, hypotension, IV fluids and antibiotics ordered. Once daughter arrived who is patient's healthcare proxy, she was initially undecided about plan of care but after some time ultimately decided to make patient comfort measures only. She did not wish to initiate norepinephrine for blood pressure support, etc. Case discussed with hospitalist, Dr. 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 Almaz from involved, daughter stating she does not want patient to return to [facility], as she feels he was not receiving adequate care there. Consult to hospice placed. Alba from spoke with daughter who is now agreeable to patient returning to [facility] for [facility]PER[facility]. Patient hypoxic to 83%, hypotensive, again discussed possible admission with Dr. Allen as patient continues to deteriorate. He does not feel patient requires admission. 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 Patient will be evaluated by hospice at [facility]. Differential Diagnosis Differential Diagnoses: The differential diagnosis associated with the presentation includes as per [facility] Admission/Observation Consideration of admission/observation: Escalation of care including admission/observation considered Consult Healthcare Provider Management of the patient was discussed with: Hospitalist Lab Data 09/17/24 11:34 09/17/24 11:34 Labs: Lab Results 09/17/24 Range/Units 11:34 WBC 34.0 H* (4.8-10.8) X10*3/uL RBC 2.97 L (4.60-5.80) X10*6/uL Hgb 8.0 L (14.0-18.0) g/dl Hct 23.9 L (42.0-52.0) % MCV 80.5 (80.0-98.0) fL MCH 26.9 L (27.0-33.0) pg MCHC 33.5 (31.0-36.0) g/dl RDW 17.2 H (11.0-16.0) % Plt Count 230 D (160-400) X10*3/uL MPV 10.6 (9.4-12.4) fL Immature Gran % (Auto) Cancelled Neut % (Auto) Cancelled Lymph % (Auto) Cancelled [place] % (Auto) Cancelled Eos % (Auto) Cancelled Baso % (Auto) Cancelled Lymph # (Auto) Cancelled [place] # (Auto) Cancelled Eos # (Auto) Cancelled Baso # (Auto) Cancelled Abs Immat Gran (auto) Cancelled Absolute Neuts (auto) Cancelled Absolute Nucleated RBC 0.000 (0.0-0.012) X10*3/uL Nucleated RBC % (auto) 0.0 (0.0-0.2) /100WBC Neutrophils % (Manual) 66 (45-73) % Band Neutrophils % 28 H (3-5) % Atypical Lymphs % (Man) 1 (0-6) % Monocytes % (Manual) 3 (2-11) % Metamyelocytes % 2 % Abs Neuts (Manual) 32.0 H (2.0-8.3) X10*3/uL Atyp Lymphs # (Manual) 0.3 x10*3/uL Monocytes # (Manual) 1.0 (0.1-1.2) X10*3/uL Metamyelocytes # 0.7 X10*3/uL Toxic Vacuolation PRESENT Dohle Bodies PRESENT Platelet Estimate NORMAL (NORMAL) Large Platelets PRESENT Plt Morphology Comment NOTED RBC Morphology NOTED Hypochromasia 1+ (5-14) /OIF Microcytosis 1+ (5-14) /OIF Acanthocytes (Spur) 1+ (0-2) /OIF Sodium 143 (135-145) mmol/L Potassium 4.4 (3.3-5.1) mmol/L Chloride 107 (96-108) mmol/L Carbon Dioxide 24 (22-29) mmol/L Anion Gap 16 (12-20) BUN 65 H (9-16) mg/dL Creatinine 3.09 H (0.5-1.4) mg/dL Estim Creat Clear Calc 15.4 Estimated GFR 20 Random Glucose 130 H (60-115) mg/dL Lactic Acid 4.8 H* (0.5-2.0) mmol/L Calcium 9.2 D (8.4-10.2) mg/dL Magnesium 1.4 L* (1.6-2.6) mg/dL Total Bilirubin 0.5 (0.0-1.0) mg/dL AST 66 H (5-37) U/L ALT 68 H (0-40) U/L Alkaline Phosphatase 133 H (39-117) U/L Total Protein 5.6 L (6.5-8.0) g/dL Albumin 2.7 L (3.5-5.0) g/dL Influenza Type A (PCR) NEGATIVE (Negative) Influenza Type B (PCR) NEGATIVE (Negative) RSV RNA Qual (PCR) NEGATIVE (Negative) SARS-CoV-2 RNA (RT-PCR) NEGATIVE (Negative) Independent Interpretation I performed an independent interpretation of an: EKG (sinus tachycardia with PVCs, rate 117bpm) Independent Historian Clinical information obtained from an independent historian. History obtained from or confirmed by: Other (daughter, Giacomo, who is HCP) External Record Review External record reviewed: Inpatient record, Office record and Outpatient record Prescription Management I considered prescription management with: Pain Medication and Other Critical Care Time Critical Care Time Critical Care Time: Yes Total Critical Care Time: 65 Attestation: I have personally provided critical care time exclusive of time spent on separately billable procedures. Time includes review of lab data, radiology results, discussion with consultants, and monitoring for potential decompensation. Intervention performed as documented. Discharge Plan Discharge Clinical Impression: Comfort measures only status, Fever, Hypotension Patient Disposition: [facility] Transfer Details: return to [facility] for [facility]PERVISOR Additional Instructions: Patient is returning to [facility] for comfort measures only. His MOLST has been updated to reflect these changes. 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 Prescriptions: New acetaminophen 650 mg suppository 650 mg CO Q6H PRN (Reason: mild pain (scale score 1-4)) 7 Days Qty: 50 0RF haloperidol 0.5 mg tablet 0.5 mg PO Q4H PRN (Reason: nausea and vomiting) Qty: 30 0RF Rx Instructions: PRN for nausea, vomiting, or agitation morphine concentrate 100 mg/5 mL (20 mg/mL) solution 5 mg PO Q1H PRN (Reason: pain) Qty: 120 0RF Rx Instructions: PRN for pain/dyspnea lorazepam 0.5 mg tablet 0.5 mg PO Q4H PRN (Reason: anxiety) Qty: 30 0RF Rx Instructions: PRN for anxiety/dyspnea bisacodyl 10 mg suppository 10 mg CO DAILY PRN (Reason: constipation) Qty: 12 0RF hyoscyamine sulfate 0.125 mg tablet, sublingual 0.125 mg PO Q4H PRN (Reason: secretions) Qty: 30 0RF No Action carvedilol 3.125 mg tablet 3.125 mg PO BID tamsulosin 0.4 mg capsule 0.8 mg PO BEDTIME amlodipine 10 mg tablet 10 mg PO DAILY risperidone 0.5 mg tablet 0.5 mg PO BID rosuvastatin 40 mg tablet 40 mg PO BEDTIME thiamine HCl (vitamin B1) 100 mg Tablet 100 mg PO DAILY baclofen 10 mg Tablet 10 mg PO TID acetaminophen [Tylenol] 325 mg Tablet 650 mg PO Q6H PRN (Reason: Pain (Scale Score 1-3)) tramadol 50 mg Tablet 50 mg PO Q8H PRN (Reason: Pain (Scale Score 4-6)) docusate sodium [Colace] 100 mg Capsule 100 mg PO DAILY mirtazapine 7.5 mg Tablet 7.5 mg PO DAILY multivitamin Tablet 1 tab PO DAILY ondansetron HCl 4 mg Tablet 4 mg PO Q4H PRN (Reason: Nausea And Vomiting) aspirin 81 mg Tablet,Delayed Release (Dr/Ec) 81 mg PO DAILY magnesium hydroxide [Milk of Magnesia] 400 mg/5 mL Suspension 30 ml PO DAILY PRN (Reason: Constipation) bisacodyl 10 mg Suppository 10 mg CO Q8H PRN (Reason: Constipation, if no BM for 8 hrs after MOM) Fleet Enema 19-7 gram/118 mL Enema 118 ml CO DAILY PRN (Reason: Constipation if no bm from bisacodyl) psyllium husk 3 gram/3 gram Powder 3 g PO DAILY polyethylene glycol 3350 [Miralax] 17 gram/dose powder 17 g PO DAILY PRN (Reason: constipation) Qty: 510 0RF cefuroxime axetil 250 mg tablet 250 mg PO BID 7 Days Qty: 14 0RF cholecalciferol (vitamin D3) 25 mcg (1,000 unit) capsule 25 mcg PO DAILY Referrals: [facility] [Outside] - 1 day Referral Note: [facility] Alex BRODERICK [Outside] - 2 days Referral Note: HOSPICE WILL REACH OUT TO FAMILY MONDAY 09/18 FOR INFORMATIONAL. Print Language: Turkish
[2024-09-17] MEDS: Lactated Ringers 1,000 ML 999 ML IV ×2 (10:07→11:36)
--- OUTSIDE RECORDS SUMMARY | 2024-09-17 10:28 | XMS_ITS | Encounter Summary ---
Author Organization [facility] Address [address] [place] [address] Phone Care Team Providers Care Assembler Engine Name Role Phone Ezra Valles MD Primary Care Provider [phone] Ezra Valles MD Unavailable [phone] Marialuisa Strong RN Unavailable [phone] Nomi Abdi MD Unavailable Vj Villarreal MD Unavailable [phone] Pcp, Unknown Primary Care Provider Unavailabl e Encounter Details Date Type Department Care Team (Late st Contact Info) Description 10/02/2017 Procedure [facility] Imaging [address] [place], [place] [id number] Social History Tobacco Use Types Packs/Day Years Used Date Smoking Tobacco: Former Cigarettes Smokeless Tobacco: Never Comments:quit 26 yearsago Alcohol Use Standard Drinks/Week Comments No 0 (1 standard drink = 0.6 oz pur e alcohol) Sex and Gender Information Value Date Recorded Sex Assigned at Not on file Legal Sex Male 6:12 PM EST Gender Identity Not on file Sexual Orientation Not on file documented as of this encounter Plan of Treatment Not on file documented as of this encounter Visit Diagnoses Not on filedocumented in this encounter Additional Health Concerns Assessment Noted Time PHQ-2 Depression Total Score: 0 01/07/20 17 2:08 PM EST documented as of this encounter Care Teams Assembler Engine Relationship Specialty Start Date End Date Ezra Valles MD [address] [place], [place] [phone] PCP - General 12/04/16 04/30/21 Pcp, Unknown PCP - General 05/01/21 Ezra Valles MD [address] [place] [id number] Insurance Assigned Provider 05/16/1707/27 Marialuisa Strong, VINOD [address] [place] [address] [email or web address] Underwater Welder 04/07/18 04/26/18 Nomi Abdi MD [address] [place] [address], [address] [place] [address] Urology 11/17/19 Vj Villarreal MD [address] [place] [id number] Cardiology 03/02/20 documented as of this encounter Additional Source Comments The information contained in this document represents components of the legal health record. It is not the complete legal health record.[facility]
--- OUTSIDE RECORDS SUMMARY | 2024-09-17 10:28 | XMS_ITS ---
Author Organization [facility] Care Team Providers Care Car Refinisher Name Role Phone Jojo Castro Unavailable Unavailable Trista Edwards Unavailable Unavailable Aristides Sparks Unavailable Unavailable Virgen Grewal Unavailable Unavailable Hue, Kristin Unavailable Unavailable Webharman, Marlyn Unavailable Unavailable Soja, Wendy Unavailable Unavailable Rainville, Christina Unavailable Unavailable Lusas, Kayce Unavailable Unavailable Brandon, Antonette Unavailable Unavailable Julia Berg Unavailable Unavail able Eyad RIGGS, Gorge Nelson Unavailable Unavailable Danis, Anika Unavailable Unavailable Mol, Lee Ann Unavailable Unavailable Arleth, Lee Ann Unavailable Unavailable Heuser, Haydee Unavailable Unavailable Cantin, Joselin Unavailable Unavailable Grippin, Jennifer Unavailable Unavailable Imelda, Violet Unavailable Unavailable Planeta, Hilda Unavailable Unavailable Mccolgan, Ivett Unavailable Unavailable Juan Miguel, April Unavailable Unavailable Shirokaja, Sheron Unavailable Unavailable Rae, Marlee Unavailable Unavailable Mainchelo, Shadrack Unavailable Unavailable Dary Dozier Unavailable Unavailable Hany, Calixto Unavailable Unavailable Colon-Cartegna, Afua Unavailable Unavailabl e Allergies and adverse reactions No Known Allergies Care Team Name Role Address Phone Organization Dates Virgen Grewal PCP [address], [place], [address], [place] (Office): : [facility] 05/02/2024 - present Jojo Matthew [address], [place], [address], [facility] (Office): [phone] (Fax): [phone] [facility] 05/02/2024 - [place], [address], [facility] (Office): : [facility] 05/02/2024 - present Aristides [place]ON [place], [facility] 05/02/2024 - present Kristin Swann [facility] (Office): : [facility] 05/02/2024 - present Marlyn Giron [address], [place] [address], [facility] (Office): : [facility] 05/02/2024 - present Wendy Grajeda [address], [place], [address], [facility] (Office): [phone] (Fax): [phone] [facility] 05/02/2024 - present Christina Campa [address], [place], [address], [facility] (Office): [phone] (Fax): [phone] [facility] 05/02/2024 - present Kayce Wheat [facility] [address], [address], [place] (Office): [facility] 05/02/2024 - present Antonette Taylor [address], [place], [address], [facility] (Office): : [facility] 05/02/2024 - present Julia Berg [address], [place], [address], [facility] (Office): : [phone] [facility] 05/02/2024 - present Gorge Castano NP [address] (Office): [facility] 05/02/2024 - present Anika Moscoso [address] [place] [address], [address], [facility] (Office): : [phone] [facility] 05/02/2024 - present [place] Ann [place], [facility] 05/02/2024 - present Lee Ann Reinoso [address] [facility], [place], [address], [facility] (Office): : [facility] 05/02/2024 - present Haydee Pineda [address], [place], [address], [facility] (Office): : [phone] [facility] 05/02/2024 - present Joselin [place]illa [place], [facility] 05/02/2024 - present Jennifer Arriola [address], [place], [address], [place] (Office): : [phone] [facility] 05/02/2024 - present Violet Segura [address] [place] [address] [address], [place], [address], [facility] (Office): : [phone] [facility] 05/02/2024 - present Hilda BUS[facility] [place], [place] (Office): : [facility] 05/02/2024 - present Ivett Covington [address], [place], [address], [facility] (Office): [phone] (Fax): [phone] [facility] 05/02/2024 - present April Juan Miguel [address], [place], [address], [facility] (Office): [phone] (Fax): [phone] [facility] 05/02/2024 - present Sheron Fulton [facility] 05/02/2024 - present Marlee Rae [address], [place], [address], [place] (Office): [phone] (Fax): [phone] [facility] 05/02/2024 - present Lexii Rome [address], [place], [address], [facility] (Office): : [facility] 05/02/2024 - present Dary Dozier [address], [place], [address], [place] (Office): [facility] 05/02/2024 - present Calixto Leach [facility] 05/02/2024 - present Afua Martinez [address] [place] [address], [place], [address], [facility] (Office): [phone] [facility] 05/02/2024 - present Goals Section Goals Description Status Target Date Tarvio will be/remain free f rom catheter-related trauma through review date. Active 10/31/2024 Tarvio will maintain or deve lop clean and intact skin by the review date. Active 10/31/2024 Joshua will show no s/sx of Urinary infection th rough review date. Active 10/31/2024 Joshua will be able to commu nicate basic needs on a daily basis through the review date. Active 10/31/2024 Joshua will be free from com plications of cardiac problems through the review date. Active 10/31/2024 Sabao will be free of any d iscomfort or adverse side effects from pain medication through the review date. Active 10/31/2024 Sabao will be free of sympt oms of dehydration and maintain moist mucous membranes, good skin turgor. Active 10/31/2024 Sabao will be open to room visits and sensory stimulation programs 3x a week through next review date. Active Joshua will maintain current level of function through the review date. Active 10/31/2024 Joshua will not sustain serious injury through t review date. Active 10/31/2024 Joshua will remain free of c omplications related to hypertension through review date. Active 10/31/2024 Joshua will remain free of c omplications related to immobility, including contractures, thrombus formation, skin-breakdown, fall related injury through the next review date. Active Joshua's diet texture approp riate to meet his needs AEB po's avg >/=75% and will consume >75% higher kcal food items, >75% of supplement with gradual wt gain, 1-2#/wk to goal wt 154#,wound improved. Active 10/31/2024 Joshua's medical, physical, and psycho-social needs will be met for the duration of her stay in [facility]. Active 2024 Tarvio/HCP/Guardian's Advanc ed Directives will be honored through next review Active 10/31/2024 Porfirio will have less than t wo episodes of incontinence per day through the review date Active 10/31/2024 joshua will be/remain free o f psychotropic drug related complications, including movement disorder, discomfort, hypotension, gait disturbance, constipation/impaction or cognitive/behavioral impairment through review date. Active 0 10/31/2024 Functional Status Code Name Recorded Time Value Entered By Chair/kwf-go-kvgyn transfer 09/17/2024 Dependent Aayala1 Eating 09/16/2024 Dependent vlopez Lower body dressing 09/17/2024 Dependent Aayala1 Lying to sitting on side of bed 09/17/2024 Dependent Aayala1 Oral hygiene 09/17/2024 Dependent Aayala1 Personal hygiene 09/17/2024 Dependent Aayala1 Roll left and right 09/17/2024 Dependent Aayala1 Shower/bathe self 09/17/2024 Dependent Aayala1 Sit to lying 09/17/2024 Dependent Aayala1 Sit to stand 09/17/2024 Dependent Aayala1 Toilet transfer 09/17/2024 Not assessed Aayala1 Toileting hygiene 09/17/2024 Not assessed Aayala1 Upper body dressing 09/17/2024 Dependent Aayala1 Wheel 150 feet 09/17/2024 Not assessed Aayala1 Wheel 50 feet with two turns 09/17/2024 Not assessed Aayala1 Immunizations Immunization Status Vaccine Details Vaccine Code CodeSystem Date Notes Comirnaty [id number] Booster completed SARS-COV-2 (COVID-19) vaccine, mRNA, spike protein, LNP, preservative free, anamika-sucrose, 30 mcg/0.3 mL dose lotNumber: [id number] expiry: 11/26/2024 309 CVX created date: 08/22/2024 consent date: 08/18/2024 administer ed date: 08/18/2024 Educated by on 08/22/2024 Medications Section Medication Name Status Code CodeSystem Dose Route Frequency Admin Type Sig Text Start Date End Date amLODIPine Besylate Oral Tablet 10 MG aborted 912499 RXNORM 1 tablet Oral one time a day Routine Give 1 tablet by mouth one time a day for HLD 09/13 Zofran Oral Tablet 4 MG active 816766 RXNORM 1 tablet Oral as needed PRN Give 1 tablet by mouth every 4 hours as needed for nausea and vomitt ing 2024 - Tamsulosin HCl Oral Capsule 0.4 MG active 898483 RXNORM 2 capsul e Oral in the evening Routine Give 2 capsul e by mouth in the evenin g for prosta te cancer 2024 - Multivitamin- Minerals Oral Tablet active 1 tablet Oral one time a day Routine Give 1 tablet by mouth one time a day for supple ment 2024 - Thiamine HCl Oral Tablet 100 MG active 738926 RXNORM 1 tablet Oral one time a day Routine Give 1 tablet by mouth one time a day for supple mental 2024 - Carvedilol Oral Tablet 3.125 MG active 036699 RXNORM 1 tablet Oral two times a day Routine Give 1 tablet by mouth two times a day for HLD 2024 - Psyllium Husk Powder active 1 scoop Oral one time a day Routine Give 1 scoop by mouth one time a day for consti pation 2024 - Colace Oral Capsule 100 MG active 565061 6 RXNORM 1 capsul e Oral one time a day Routine Give 1 capsul e by mouth one time a day for consti pation 2024 - Baclofen Oral Tablet 10 MG active 515258 RXNORM 1 tablet Oral three times a day Routine Give 1 tablet by mouth three times a day for pain 2024 - Tylenol Oral Tablet 325 MG active 262825 RXNORM 650 mg Oral as needed PRN Give 650 mg by mouth every 6 hours as needed for pain 2024 - Vitamin D Oral Tablet active 25 mcg Oral one time a day Routine Give 25 mcg by mouth one time a day for supple mental 2024 - Rosuvastatin Calcium Oral Tablet 40 MG active 145895 RXNORM 1 tablet Oral in the evening Routine Give 1 tablet by mouth in the evenin g for HLD 2024 - Milk of Magnesia Oral Suspension active 30 ml Oral as needed PRN Give 30 ml by mouth as needed for Consti pation 2024 - Mirtazapine Oral Tablet 7.5 MG aborted 458149 RXNORM 7.5 mg Oral one time a day Routine Give 7.5 mg by mouth one time a day for Anxiet y, Appeti te 09/13 Fleet Enema Enema 7-19 GM/118ML active 445604 RXNORM 1 unit Rectal as needed PRN Insert 1 unit rectal ly as needed for Consti pation . Give if no result s from laxati ve suppos itory. 2024 - Bisacodyl Rectal Suppository active 10 mg Rectal as needed PRN Insert 10 mg rectal ly every 8 hours as needed for consti pation . 1 suppos itory DC as needed for of no BM for 8 hours after MOM 2024 - MiraLax Oral Powder 17 GM/SCOOP active 187161 RXNORM 1 scoop Oral as needed PRN Give 1 scoop by mouth every 24 hours as needed for consti pation 2024 - Ferrous Sulfate Oral Tablet active 325 mg Oral one time a day Routine Give 325 mg by mouth one time a day for anemia 2024 - Cyanocobalami n Oral Tablet active 1000 mcg Oral one time a day Routine Give 1000 mcg by mouth one time a day for vitami n b12 defici ency 2024 - Comirnaty Intramuscular Suspension Prefilled Syringe 30 MCG/0.3ML active 464711 1 RXNORM 0.3 ml Intramu scular as needed PRN Inject 0.3 ml intram uscula rly as needed for vaccin e give x1 2024 - risperiDONE Oral Tablet aborted 0.25 mg Oral one time a day Routine Give 0.25 mg by mouth one time a day relate d to UNSPEC IFIED OSORIO IA, UNSPEC IFIED SEVERI TY, WITH PSYCHO TIC DISTUR BANCE (F03.9 2) AND Give 0.5 mg by mouth at bedtim e relate d to UNSPEC IFIED OSORIO IA, UNSPEC IFIED SEVERI TY, WITH PSYCHO TIC DISTUR BANCE (F03.9 2) 08/31 0.5 mg Oral at bedtime Routine Give 0.25 mg by mouth one time a day relate d to UNSPEC IFIED OSORIO IA, UNSPEC IFIED SEVERI TY, WITH PSYCHO TIC DISTUR BANCE (F03.9 2) AND Give 0.5 mg by mouth at bedtim e relate d to UNSPEC IFIED OSORIO IA, UNSPEC IFIED SEVERI TY, WITH PSYCHO TIC DISTUR BANCE (F03.9 2) 08/31 RisperDAL Oral Tablet 0.5 MG aborted 988603 RXNORM 0.5 mg Oral at bedtime Routine Give 0.5 mg by mouth at bedtim e relate d to UNSPEC IFIED OSORIO IA, UNSPEC IFIED SEVERI TY, WITH PSYCHO TIC DISTUR BANCE (F03.9 2) 09/09 risperiDONE Oral Tablet active 0.25 mg Oral at bedtime Routine Give 0.25 mg by mouth at bedtim e relate d to UNSPEC IFIED OSORIO IA, UNSPEC IFIED SEVERI TY, WITH PSYCHO TIC DISTUR BANCE (F03.9 2) 2024 - Mirtazapine Oral Tablet 7.5 MG active 805116 RXNORM 15 mg Oral one time a day Routine Give 15 mg by mouth one time a day for Anxiet y, Appeti te 2024 - amLODIPine Besylate Oral Tablet 10 MG active 477870 RXNORM 0.5 tablet Oral one time a day Routine Give 0.5 tablet by mouth one time a day for HTN 2024 - oxyCODONE HCl Oral Tablet 5 MG active 339089 1 RXNORM 2.5 mg Enteral as needed PRN Give 2.5 mg entera lly every 6 hours as needed for pain 2024 - Mental Status Section Date Assessment Total Score Description 08/02/2024 BIMS 05 severe cognitiv e impairment CAM 0 No delirium ind icated PHQ-9 00 07/06/2024 BIMS 06 severe cognitiv e impairment CAM 2 Delirium indica tiffany PHQ-9 01 minimal depress ion Problems Problem # Description Date of onset Resolved Date Code CodeSystem Concern Status 1 DELUSIONAL DISORDERS 09/03/[address] active 2 OBSTRUCTIVE AND REFLUX UROPATHY, UNSPECIFIED 09/03/[address] active 3 HISTORY OF FALLING 08/12/[address] active 4 ULCER OF PENIS 07/05/[address] active 5 UNSPECIFIED DEMENTIA, UNSPECIFIED SEVERITY, WITH PSYCHOTIC DISTURBANCE 07/05/[address] active 6 ACUTE PERICARDITIS, UNSPECIFIED 06/30/[address] active 7 CHRONIC IDIOPATHIC CONSTIPATION 06/30/[address] active 8 URINARY TRACT INFECTION, SITE NOT SPECIFIED 06/30/19 25 08/11/[address] completed 9 UNSPECIFIED FALL, SUBSEQUENT ENCOUNTER 06/27/1908/11/[address] completed 10 ADJUSTMENT DISORDER, UNSPECIFIED 06/24/[address] active 11 ALCOHOL ABUSE, IN REMISSION 06/24/[address] active 12 PRESSURE ULCER OF LEFT HEEL, STAGE 3 05/06/19 25 06/30/[address] completed 13 PRESSURE ULCER OF OTHER SITE, STAGE 3 05/06/19 25 07/21/[address] completed 14 ADULT FAILURE TO THRIVE 05/03/[address] active 15 ALCOHOL USE, UNSPECIFIED, UNCOMPLICATED 05/03/[address] active 16 ANEMIA, UNSPECIFIED 05/03/[address] active 17 BENIGN PROSTATIC 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 05/03/[address] active 18 CEREBRAL INFARCTION, UNSPECIFIED 05/03/19 25 05/13/[address] completed 19 CHRONIC KIDNEY DISEASE, UNSPECIFIED 05/03/[address] active 20 CONTRACTURE, LEFT ELBOW 05/03/[address] active 21 CONTRACTURE, LEFT KNEE 05/03/[address] active 22 CONTRACTURE, RIGHT KNEE 05/03/[address] active 23 CONTRACTURE, UNSPECIFIED ELBOW 05/03/[address] active 24 CONTRACTURE, UNSPECIFIED HIP 05/03/[address] active 25 DYSPHAGIA, OROPHARYNGEAL PHASE 05/03/[address] active 26 ENCOUNTER FOR FITTING AND ADJUSTMENT OF URINARY DEVICE 05/03/[address] active 27 ESSENTIAL (PRIMARY) HYPERTENSION 05/03/[address] active 28 HEMIPLEGIA AND HEMIPARESIS FOLLOWING CEREBRAL INFARCTION AFFECTING LEFT NON-DOMINANT SIDE 05/03/[address] active 29 HYPERLIPIDEMIA, UNSPECIFIED 05/03/[address] active 30 MULTIPLE FRACTURES OF RIBS, UNSPECIFIED SIDE, SUBSEQUENT ENCOUNTER FOR FRACTURE WITH ROUTINE HEALING 05/03/[address] active 31 MUSCLE WEAKNESS (GENERALIZED) 05/03/[address] active 32 NON-PRESSURE CHRONIC ULCER OF LEFT HEEL AND MIDFOOT WITH UNSPECIFIED SEVERITY 05/03/19 25 05/13/[address] completed 33 OTHER ABNORMALITIES OF GAIT AND MOBILITY 05/03/[address] active 34 PAIN IN LEFT SHOULDER 05/03/[address] active 35 PERSONAL HISTORY OF MALIGNANT NEOPLASM OF PROSTATE 05/03/[address] active 36 PERSONAL HISTORY OF TRANSIENT ISCHEMIC ATTACK (TIA), AND CEREBRAL INFARCTION WITHOUT RESIDUAL DEFICITS 05/03/[address] active 37 PRESENCE OF OTHER SPECIFIED DEVICES 05/03/[address] active 38 PRESSURE ULCER OF LEFT HEEL, UNSPECIFIED STAGE 05/03/19 25 05/13/[address] completed 39 PRESSURE ULCER OF RIGHT BUTTOCK, UNSPECIFIED STAGE 05/03/19 25 06/30/[address] completed 40 RETENTION OF URINE, UNSPECIFIED 05/03/[address] active 41 STIFFNESS OF LEFT HAND, NOT ELSEWHERE CLASSIFIED 05/03/[address] active 42 UNSPECIFIED OPEN WOUND, RIGHT LOWER LEG, SUBSEQUENT ENCOUNTER 05/03/19 25 06/30/[address] completed 43 UNSPECIFIED OPEN WOUND, UNSPECIFIED ANKLE, SUBSEQUENT ENCOUNTER 05/03/[address] active 44 UNSPECIFIED SEVERE PROTEIN-CALORIE MALNUTRITION 05/03/[address] active Reason for Referral No Reasons for Referral Entered Social History Social History Observation Description Start Date End Date Code Code System Current Smoking Status Tobacco smoking consumption unknown 360309932 SNOMED CT Sex Assigned At Male 1950 62160-9 [facility] Gender Identity Vital Signs Code Code System Vitals Name Values and Units Timing Information 90057-1 [facility] Pain Level Value=0.0 09/16/2024 26304-8 [facility] Weight Mhhuq=559.3 Units=Lbs 02/2024 9279-1 [facility] Respiratory Rate Value=16.0 Units=/m in 09/15/2024 8462-4 [facility] Blood Pressure-Diastolic Value=65 Un its=mmHg 09/15/2024 8480-6 [facility] Blood Pressure-Systolic Lrhvj=264 Un its=mmHg 09/15/2024 8310-5 [facility] Body Temperature Value=97.7 Units= F 09/15/2024 8867-4 [facility] Heart rate Gnkeg=514.0 Units=/min 09/15/2024 54827-0 [facility] O2 % BldC Oximetry Value=96.0 Units= % 09/15/2024 8302-2 [facility] Height Value=68.0 Units=Inches 05/03/2024
--- OUTSIDE RECORDS SUMMARY | 2024-09-17 10:28 | XMS_ITS | Patient Health Record ---
Author Organization [facility] Address [address] [facility] [address] [place] [address] Care Team Providers Care Supervisor Liquid Yeast Name Role Phone Elder Virgen OWENS Primary Care Provider Drew Mcnulty Unavailable [phone] Allergies Allergen (clinical drug ingredient) Drug/Non Drug Allergy documented on EMR Reaction Allergy Type Onset Date Status lisinopril Lisinopril Unknown Drug Allergy Activ e valsartan Valsartan Unknown Drug Allergy Active Reason For Referral No Information Medications Medication SIG (Take, Route, Frequency, Duration) Notes Start Date End Date Status Multivitamin-Minerals - 1 tablet Orally once a day Unknown Colace 100 MG 1 capsule Orally Onc e a day Unknown Carvedilol 3.125 MG 1 tablet Orally Twic e a day Unknown Baclofen 10 MG 1 tablet Orally 3 ti mes a day Unknown Vitamin D 25 MCG (1000 UT) 1 tablet Oral ly Once a day Unknown Acetaminophen 325 MG 2 tablets Orally every 6 hrs As needed Unknown Rosuvastatin Calcium 40 MG 1 tablet Oral ly Once a day Unknown risperiDONE 0.5 MG 1 tablet Orally twic e a day Unknown Psyllium Husk - 1 scoop once a day Unknown Ondansetron HCl 4 MG 1 tablet Orally every 4 hrs As needed Unknown Aspirin 81 MG 1 tablet Orally Once a day Unknown traMADol HCl 50 MG 1 tablet Orally every 8 hrs As needed Unknown Aricept 10 MG 1 tablet Orally at bedtime Unknown Thiamine HCl 100 MG 1 tablet Orally Once a day Unknown Tamsulosin HCl 0.4 MG 2 capsules Orally in the evening Unknown amLODIPine Besylate 10 MG 1 tablet Orall y Once a day Unknown Problems Problem Type SNOMED Code ICD Code Onset Dates Problem Status W/U Status Risk Notes Problem Anemia (625437055) Anemia, unspecified (D64.9) Active confirmed Problem Severe protein calorie malnutrition (681670997) Unspecified severe protein-calorie malnutrition (E43) Active confirmed Problem Hyperlipidemia (23076232) Hyperlipidemia, unspecified (E78.5) Active confirmed Problem Essential hypertension (32862610) Essential (primary) hypertension (I10) Active confirmed Problem Pressure injury of right heel stage III (disorder) (20306157185297) Pressure ulcer of right heel, stage 3 (L89.613) Active confirmed Problem Pressure injury of left heel (disorder) (53910577742065) Pressure ulcer of left heel, unspecified stage (L89.629) Active confirmed Problem Pressure injury stage III (disorder) (3614983576) Pressure ulcer of other site, stage 3 (L89.893) Active confirmed Problem Contracture of hip joint (292838316) Contracture, unspecified hip (M24.559) Active confirmed Problem Chronic kidney disease (860459938) Chronic kidney disease, unspecified (N18.9) Active confirmed Problem Adult failure to thrive syndrome (335296426) Adult failure to thrive (R62.7) Active confirmed Problem Encounter for fitting and adjustment of urinary device (Z46.6) Active confirmed Problem History of malignant neoplasm of prostate (000697192) Personal history of malignant neoplasm of prostate (Z85.46) Active confirmed Problem Abrasion of foot (281317915) Abrasion of foot, left (S90.812A) Active confirmed Encounters Encounter Location Date Provider Diagnosis [address] [place] [address] 05/05/2024 Drew Waien Pressure ulcer of right heel, stage 3 L89.613 ; Pressure ulcer of other site, stage 3 L89.893 ; Essential (primary) hypertension I10 ; Adult failure to thrive R62.7 ; Unspecified severe protein-calorie malnutrition E43 ; Contracture, unspecified hip M24.559 ; Chronic kidney disease, unspecified N18.9 and Personal history of malignant neoplasm of prostate Z85.46 [address] [place] [address] 05/12/2024 Drew Waien Pressure ulcer of right heel, stage 3 L89.613 ; Pressure ulcer of other site, stage 3 L89.893 ; Essential (primary) hypertension I10 ; Adult failure to thrive R62.7 ; Unspecified severe protein-calorie malnutrition E43 ; Contracture, unspecified hip M24.559 ; Chronic kidney disease, unspecified N18.9 and Personal history of malignant neoplasm of prostate Z85.[address] [address] 05/19/2024 Drewiván Prietoien Pressure ulcer of right heel, stage 3 L89.613 ; Pressure ulcer of other site, stage 3 L89.893 ; Essential (primary) hypertension I10 ; Adult failure to thrive R62.7 ; Unspecified severe protein-calorie malnutrition E43 ; Contracture, unspecified hip M24.559 ; Chronic kidney disease, unspecified N18.9 and Personal history of malignant neoplasm of prostate Z85.[address] [address] 05/26/2024 Drewiván Prietoien Pressure ulcer of right heel, stage 3 L89.613 ; Pressure ulcer of other site, stage 3 L89.893 ; Essential (primary) hypertension I10 ; Adult failure to thrive R62.7 ; Unspecified severe protein-calorie malnutrition E43 ; Contracture, unspecified hip M24.559 ; Chronic kidney disease, unspecified N18.9 and Personal history of malignant neoplasm of prostate Z85.[address] [address] 06/02/2024 Drewiván Prietoien Pressure ulcer of right heel, stage 3 L89.613 ; Pressure ulcer of other site, stage 3 L89.893 ; Essential (primary) hypertension I10 ; Adult failure to thrive R62.7 ; Unspecified severe protein-calorie malnutrition E43 ; Contracture, unspecified hip M24.559 ; Chronic kidney disease, unspecified N18.9 and Personal history of malignant neoplasm of prostate Z85.[address] [address] 06/09/2024 Drewiván Prietoien Pressure ulcer of right heel, stage 3 L89.613 ; Pressure ulcer of other site, stage 3 L89.893 ; Essential (primary) hypertension I10 ; Adult failure to thrive R62.7 ; Unspecified severe protein-calorie malnutrition E43 ; Contracture, unspecified hip M24.559 ; Chronic kidney disease, unspecified N18.9 and Personal history of malignant neoplasm of prostate Z85.[address] [place] [address] 06/16/2024 Drewiván Prietoien Pressure ulcer of right heel, stage 3 L89.613 ; Pressure ulcer of other site, stage 3 L89.893 ; Essential (primary) hypertension I10 ; Adult failure to thrive R62.7 ; Unspecified severe protein-calorie malnutrition E43 ; Contracture, unspecified hip M24.559 ; Chronic kidney disease, unspecified N18.9 and Personal history of malignant neoplasm of prostate Z85.[address] [address] 06/30/2024 Drewiván Prietoien Pressure ulcer of right heel, stage 3 L89.613 ; Pressure ulcer of other site, stage 3 L89.893 ; Essential (primary) hypertension I10 ; Adult failure to thrive R62.7 ; Unspecified severe protein-calorie malnutrition E43 ; Contracture, unspecified hip M24.559 ; Chronic kidney disease, unspecified N18.9 and Personal history of malignant neoplasm of prostate Z85.46 [address] [place] [address] 07/14/2024 Drewiván Prietoien Pressure ulcer of right heel, stage 3 L89.613 ; Pressure ulcer of other site, stage 3 L89.893 ; Essential (primary) hypertension I10 ; Adult failure to thrive R62.7 ; Unspecified severe protein-calorie malnutrition E43 ; Contracture, unspecified hip M24.559 ; Chronic kidney disease, unspecified N18.9 and Personal history of malignant neoplasm of prostate Z85.46 [address] [address] [place] [address] 08/18/2024 Drewiván Prietoien Pressure ulcer of right heel, stage 3 L89.613 ; Pressure ulcer of other site, stage 3 L89.893 ; Essential (primary) hypertension I10 ; Adult failure to thrive R62.7 ; Unspecified severe protein-calorie malnutrition E43 ; Contracture, unspecified hip M24.559 ; Chronic kidney disease, unspecified N18.9 and Personal history of malignant neoplasm of prostate Z85.46 [address] [place] [address] 09/01/2024 Drew Waien Pressure ulcer of right heel, stage 3 L89.613 ; Pressure ulcer of other site, stage 3 L89.893 ; Essential (primary) hypertension I10 ; Adult failure to thrive R62.7 ; Unspecified severe protein-calorie malnutrition E43 ; Contracture, unspecified hip M24.559 ; Chronic kidney disease, unspecified N18.9 and Personal history of malignant neoplasm of prostate Z85.46 [address] [place] [address] 09/15/2024 Drewiván Prietoien Pressure ulcer of other site, stage 3 L89.893 ; Abrasion of foot, left S90.812A ; Pressure ulcer of right heel, stage 3 L89.613 ; Essential (primary) hypertension I10 ; Adult failure to thrive R62.7 ; Unspecified severe protein-calorie malnutrition E43 ; Contracture, unspecified hip M24.559 ; Chronic kidney disease, unspecified N18.9 and Personal history of malignant neoplasm of prostate Z85.46 Assessments Encounter Date Diagnosis (ICD Code) Assessment Notes Treatment Notes Treatment Clinical Notes Section Notes 05/05/2024 Pressure ulcer of right heel, stage 3 (ICD-10 - L89.613) 05/05/2024 Pressure ulcer of other site, stage 3 (ICD-10 - L89.893) 05/12/2024 Pressure ulcer of right heel, stage 3 (ICD-10 - L89.613) 05/19/2024 Pressure ulcer of right heel, stage 3 (ICD-10 - L89.613) 05/26/2024 Pressure ulcer of right heel, stage 3 (ICD-10 - L89.613) 06/02/2024 Pressure ulcer of right heel, stage 3 (ICD-10 - L89.613) 06/09/2024 Pressure ulcer of right heel, stage 3 (ICD-10 - L89.613) 06/16/2024 Pressure ulcer of right heel, stage 3 (ICD-10 - L89.613) 06/30/2024 Pressure ulcer of right heel, stage 3 (ICD-10 - L89.613) 06/30/2024 Pressure ulcer of other site, stage 3 (ICD-10 - L89.893) 07/14/2024 Pressure ulcer of right heel, stage 3 (ICD-10 - L89.613) 08/18/2024 Pressure ulcer of right heel, stage 3 (ICD-10 - L89.613) 09/01/2024 Pressure ulcer of right heel, stage 3 (ICD-10 - L89.613) 09/15/2024 Pressure ulcer of other site, stage 3 (ICD-10 - L89.893) 09/15/2024 Abrasion of foot, left (ICD-10 - S90.812A) 09/15/2024 Pressure ulcer of right heel, stage 3 (ICD-10 - L89.613) 09/01/2024 Pressure ulcer of other site, stage 3 (ICD-10 - L89.893) 08/18/2024 Pressure ulcer of other site, stage 3 (ICD-10 - L89.893) 07/14/2024 Pressure ulcer of other site, stage 3 (ICD-10 - L89.893) 06/30/2024 Essential (primary) hypertension (ICD-10 - I10) 06/16/2024 Pressure ulcer of other site, stage 3 (ICD-10 - L89.893) 06/09/2024 Pressure ulcer of other site, stage 3 (ICD-10 - L89.893) 06/02/2024 Pressure ulcer of other site, stage 3 (ICD-10 - L89.893) 05/26/2024 Pressure ulcer of other site, stage 3 (ICD-10 - L89.893) 05/19/2024 Pressure ulcer of other site, stage 3 (ICD-10 - L89.893) 05/12/2024 Pressure ulcer of other site, stage 3 (ICD-10 - L89.893) 05/05/2024 Essential (primary) hypertension (ICD-10 - I10) 05/05/2024 Adult failure to thrive (ICD-10 - R62.7) 05/12/2024 Essential (primary) hypertension (ICD-10 - I10) 05/19/2024 Essential (primary) hypertension (ICD-10 - I10) 05/26/2024 Essential (primary) hypertension (ICD-10 - I10) 06/02/2024 Essential (primary) hypertension (ICD-10 - I10) 06/09/2024 Essential (primary) hypertension (ICD-10 - I10) 06/16/2024 Essential (primary) hypertension (ICD-10 - I10) 06/30/2024 Adult failure to thrive (ICD-10 - R62.7) 07/14/2024 Essential (primary) hypertension (ICD-10 - I10) 08/18/2024 Essential (primary) hypertension (ICD-10 - I10) 09/01/2024 Essential (primary) hypertension (ICD-10 - I10) 09/15/2024 Essential (primary) hypertension (ICD-10 - I10) 09/15/2024 Adult failure to thrive (ICD-10 - R62.7) 09/01/2024 Adult failure to thrive (ICD-10 - R62.7) 08/18/2024 Adult failure to thrive (ICD-10 - R62.7) 07/14/2024 Adult failure to thrive (ICD-10 - R62.7) 06/30/2024 Unspecified severe protein-calorie malnutrition (ICD-10 - E43) 06/16/2024 Adult failure to thrive (ICD-10 - R62.7) 06/09/2024 Adult failure to thrive (ICD-10 - R62.7) 06/02/2024 Adult failure to thrive (ICD-10 - R62.7) 05/26/2024 Adult failure to thrive (ICD-10 - R62.7) 05/19/2024 Adult failure to thrive (ICD-10 - R62.7) 05/12/2024 Adult failure to thrive (ICD-10 - R62.7) 05/05/2024 Unspecified severe protein-calorie malnutrition (ICD-10 - E43) 05/05/2024 Contracture, unspecified hip (ICD-10 - M24.559) 05/12/2024 Unspecified severe protein-calorie malnutrition (ICD-10 - E43) 05/19/2024 Unspecified severe protein-calorie malnutrition (ICD-10 - E43) 05/26/2024 Unspecified severe protein-calorie malnutrition (ICD-10 - E43) 06/02/2024 Unspecified severe protein-calorie malnutrition (ICD-10 - E43) 06/09/2024 Unspecified severe protein-calorie malnutrition (ICD-10 - E43) 06/16/2024 Unspecified severe protein-calorie malnutrition (ICD-10 - E43) 06/30/2024 Contracture, unspecified hip (ICD-10 - M24.559) 07/14/2024 Unspecified severe protein-calorie malnutrition (ICD-10 - E43) 08/18/2024 Unspecified severe protein-calorie malnutrition (ICD-10 - E43) 09/01/2024 Unspecified severe protein-calorie malnutrition (ICD-10 - E43) 09/15/2024 Unspecified severe protein-calorie malnutrition (ICD-10 - E43) 09/15/2024 Contracture, unspecified hip (ICD-10 - M24.559) 09/01/2024 Contracture, unspecified hip (ICD-10 - M24.559) 08/18/2024 Contracture, unspecified hip (ICD-10 - M24.559) 07/14/2024 Contracture, unspecified hip (ICD-10 - M24.559) 06/30/2024 Chronic kidney disease, unspecified (ICD-10 - N18.9) 06/16/2024 Contracture, unspecified hip (ICD-10 - M24.559) 06/09/2024 Contracture, unspecified hip (ICD-10 - M24.559) 06/02/2024 Contracture, unspecified hip (ICD-10 - M24.559) 05/26/2024 Contracture, unspecified hip (ICD-10 - M24.559) 05/19/2024 Contracture, unspecified hip (ICD-10 - M24.559) 05/12/2024 Contracture, unspecified hip (ICD-10 - M24.559) 05/05/2024 Chronic kidney disease, unspecified (ICD-10 - N18.9) 05/05/2024 Personal history of malignant neoplasm of prostate (ICD-10 - Z85.46) 05/12/2024 Chronic kidney disease, unspecified (ICD-10 - N18.9) 05/19/2024 Chronic kidney disease, unspecified (ICD-10 - N18.9) 05/26/2024 Chronic kidney disease, unspecified (ICD-10 - N18.9) 06/02/2024 Chronic kidney disease, unspecified (ICD-10 - N18.9) 06/09/2024 Chronic kidney disease, unspecified (ICD-10 - N18.9) 06/16/2024 Chronic kidney disease, unspecified (ICD-10 - N18.9) 06/30/2024 Personal history of malignant neoplasm of prostate (ICD-10 - Z85.46) 07/14/2024 Chronic kidney disease, unspecified (ICD-10 - N18.9) 08/18/2024 Chronic kidney disease, unspecified (ICD-10 - N18.9) 09/01/2024 Chronic kidney disease, unspecified (ICD-10 - N18.9) 09/15/2024 Chronic kidney disease, unspecified (ICD-10 - N18.9) 09/15/2024 Personal history of malignant neoplasm of prostate (ICD-10 - Z85.46) 09/01/2024 Personal history of malignant neoplasm of prostate (ICD-10 - Z85.46) 08/18/2024 Personal history of malignant neoplasm of prostate (ICD-10 - Z85.46) 07/14/2024 Personal history of malignant neoplasm of prostate (ICD-10 - Z85.46) 06/16/2024 Personal history of malignant neoplasm of prostate (ICD-10 - Z85.46) 06/09/2024 Personal history of malignant neoplasm of prostate (ICD-10 - Z85.46) 06/02/2024 Personal history of malignant neoplasm of prostate (ICD-10 - Z85.46) 05/26/2024 Personal history of malignant neoplasm of prostate (ICD-10 - Z85.46) 05/19/2024 Personal history of malignant neoplasm of prostate (ICD-10 - Z85.46) 05/12/2024 Personal history of malignant neoplasm of prostate (ICD-10 - Z85.46) 05/05/2024 Other Today I saw [facility] for her initial evaluation and management of open wounds involving his left heel as well as two on the the lateral aspect of his left foot. On exam he is reported to be afebrile. His speech is limited because of his stroke. On exam he has 3 open areas as outlined. All are 3 stage III pressure ulcers. There is evidence of devitalized tissue covering all 3 wound sites. There is no evbidence of any underlying infective process. there is no surrounding erythema or foul odour noted. After examining the wounds I performed debridement of them as outlined. He tolerated procedures well. I recommended the application of Santyl to all 3 areas and covering them with a dry dressing. Staff will perform his dressing changes daily and they will also continue to monitor and protect the areas. I will follow-up with him next week. 05/12/2024 Other Today I saw Joshua at the [facility] for his follow-up appointment. Nursing staff report no new issues related to the wound sites. Unfortunately he continues to lie on his left side and as a result continues to apply pressure to the wounds especially the 2 on the lateral aspect of his left foot. Staff have applied protective foot wear to help minimize the amount of pressure to the areas. On exam he is afebrile and after remowing the dressings I examined the wound sites. He continues to have 3 open areas involving his left foot as outlined. There was evidence of devitalized tissue covering all 3 areas with no sign of any purulent drainage, foul odor or any other signs to suggest an underlying infective process. After examining the 3 areas I performed debridement of them as outlined. He tolerated the procedures. I recommended that we continue to apply Santyl on to all 3 areas and cover them with a dry dressing. He will continue have dressing change performed daily and staff will continue to assist him with offloading the wound sites. 05/19/2024 Other Today I saw Porfirio at the [facility] for his follow-up appointment. Staff have been performing his dressing changes regularly and making efforts to offload and protect the wound sites.. On exam he continues to have 3 open areas involving his left foot. There is no evidence of any underlying infective process involving the 3 areas. There was evidence of overlying devitalized tissue which I debrided as outlined. He tolerated the procedures. I recommended that we continue to apply Santyl on to all 3 wound base is and cover them with a dry dressing. Staff will perform his dressing changes daily and they will also continue to offload and reposition him frequently. They will also make efforts to protect the wound site. I will follow-up with him next week. 05/26/2024 Other Today I saw [facility] at the [facility] for his follow-up appointment. Staff have been performing his dressing changes regularly and have been applying heel and foot protectors to help offload the wound sites. On exam he has remained afebrile, we then removed the dressings and examined the open areas. He continues to have 3 open areas on his left foot. It is showing signs of improvement. There was evidence of devitalized tissue covering all 3 areas which I debrided as outlined. He tolerated the procedure well. I recommended that we should continue to apply Santyl to all 3 areas and cover them with a dry dressing. Staff will perform his dressing changes daily and we will continue to apply offloading protective foot rosa. I will follow-up with him next week. 06/02/2024 Other Today I saw [facility] at [facility] for his follow-up appointment. Staff have been performing his dressing changes regularly and have been applying heel and foot protectors to help offload the wound sites. On exam today he remains afebrile, we then removed the dressings and examined the open areas. He continues to have 3 open areas on his left foot. They are all showing signs of improvement. There was evidence of devitalized tissue covering all 3 areas which I debrided as outlined. He tolerated the procedure well. Today I recommended that we should now calcium Alginate onto all 3 areas along with zinc to the periwound areas and cover them with a dry dressing. Staff will perform his dressing changes daily and we will continue to apply offloading protective foot rosa. I will follow-up with him next week. 06/09/2024 Other Today I saw [facility] at the [facility] for his follow-up appointment. Staff have been performing his dressing changes regularly and he has had heel/foot protectors put on to help offload and protect the areas. On exam today he is reported to be afebrile, we then removed the dressings and examined the wound sites. The proximal wound on the lateral aspect of his left but has resolved. He now has only 2 open areas; one on the heel and the other on the lateral aspect of his left foot. There is good granulation tissue developing at the base of both wound sites. There was also evidence of devitalized tissue which I debrided as outlined. He tolerated the procedures well. At this time we will continue to apply calcium alginate with silver to both sites along with zinc to the periwound areas. The site was then covered with a dry dressing and staff will perform his dressing changes daily. I also encouraged the staff to apply skin prep to the resolved area daily for 5 more days. He will also continue to have heel/foot protectors applied to both of his feet. I will follow-up with him next week. 06/16/2024 Other Today I saw Maura at the [facility] for his follow-up appointment. Nursing staff have been performing his dressing changes and also helping him offload and protect the wound sites. On exam today he continues to have 2 open areas as outlined. Both of these areas are continuing to show signs of improvement and are measuring slightly smaller. After examining the areas I performed debridement of them to remove overlying devitalized tissue as outlined. He tolerated the procedures well. We will continue with our current management plan and apply calcium alginate with silver onto both wound sites along with zinc to the periwound areas. The sites were then covered with a dry dressing. He will continue to have dressing changes performed daily and staff will continue to help protect and offload the areas. I will follow-up with him next week.\ 06/30/2024 Other Today I saw [facility] at the [facility] for his follow-up appointment. Staff have been performing his dressing changes regularly and report no new issues related to the wound sites. On exam today the wound on his left heel has resolved ias well as the as the distal one on the lateral aspect of his left foot has also resolved. He now has only one open area remaining. After examining the area I performed debridement of it as outlined to remove overlying devitalized tissue as well as a rim of fibrous tissue along the edges. He tolerated the procedure well. I recommended that we apply calcium alginate with silver onto the wound base and cover it with a dry dressing. To the resolved areas I recommended we apply skin prep daily for 7 days. The nursing staff will be performing his dressing changes daily and monitor the wound site. They will also continue to offload the area and I will follow-up with him next week. 07/14/2024 Other Today I saw [facility] at the [facility] for his follow-up appointment. Nursing staff have been performing his dressing changes regularly and report no new issues. On exam the remaining open wound on the lateral aspect of his left foot has now resolved. Staff were encouraged to continue to help protect the area by applying heel/foot protectors. It should also continue to offload and reposition him frequently. I will follow-up with him as needed. 08/18/2024 Other Today I was asked to see Joshua for the management of a new stage III pressure ulcer on his coccyx. Nursing staff report they first noticed it 3 days ago. They have applied a dressing to the area to protect it. On exam he is reported to be afebrile, we then were the dressings and examined the wound site. There is an open area on his coccyx with exposed muscle tissue. There is no evidence of any purulent drainage or foul odor present. He does have mild erythema surrounding the area. After examining the area, I performed debridement to remove devitalized tissue as outlined. He tolerated the procedure well. I recommended the application of calcium alginate with silver onto the wound base along with zinc to the periwound area and covering it with a dry dressing. Staff will perform his dressing changes daily and additional changes as necessary. They will also continue to offload and reposition him frequently. I will follow-up with him in 2 weeks. 09/01/2024 Other Today I saw [facility] for his follow-up appointment. Nursing staff have been performing his dressing changes regularly and report no new issues related to the wound on his coccyx. On exam he is reported to be afebrile, we then removed the dressings and I examined the wound site. Overall the wound is showing signs of improvement with granulation tissue along the base. There is some slough/devitalize d tissue covering the base but there is no evidence of any foul odor, purulent drainage or any other signs to suggest an underlying infective process. After examining the area I performed debridement of it as outlined. He tolerated the procedure well. I recommended that we apply medihoney onto the wound base and cover it with a dry dressing. Staff will perform his dressing changes daily and additional changes as necessary. They will also continue to monitor the wound site and offload and reposition him frequently. I will follow-up with him next week. 09/15/2024 Other Today I saw Joshua at the [facility] for [facility] follow-up appointment. Nursing staff report that they have been performing his dressing changes regularly and also now noticed the development of two new areas involving his left heel. On exam today he is reported to be afebrile, we then examined the wound sites. The wound on his coccyx has resolved. Staff will apply skin prep daily for next 3 days and continue to offload and reposition him frequently. He has however now developed 2 areas on his left heel, one on the posterior aspect the other on the plantar aspect of the left heel. They appeared to be related to him sliding his heel on his bed in order to move about. There was no foul odor, purulent drainage or any other signs to suggest an infective process involving these wound sites. There was devitalized tissue present and after examining the sites I performed debridement of them as outlined. He tolerated the procedures well. We will apply calcium alginate with silver onto the wound sites along with zinc to the periwound areas and cover them with a dry dressing. Staff will perform his dressing changes daily. They will continue to offload and help protect the areas. I will follow-up with him next week. Plan Of Treatment No Information Insurance Providers Payer Name Payer Address Payer Phone Subscriber Number Group Number Insured Name Patient Relationship to Insured Coverage Start Date Coverage End Date Medicare [address] [place], [place] [id number] NewellJoshua Self - patient is the insured [employer] (Medicaid) [address] [place], [place] [id number] [phone] [id number] Joshua Barnhart Self - patient is the insured Medical (General) History Medical History History ICD Code Alcohol use, unspecified, uncomplicated F10.90 Adult failure to thrive R62.7 Anemia, unspecified D64.9 Chronic kidney disease, unspecified N18. 9 Contracture, unspecified hip M24.559 Encounter for fitting and adjustment of urinary device Z46.6 Essential (primary) hypertension I10 Hyperlipidemia, unspecified E78.5 Multiple fractures of ribs, unspecified side, subsequent encounter for fracture with routine healing S22.49XD Pain in left shoulder M25.512 Personal history of malignant neoplasm o f prostate Z85.46 Personal history of transien t ischemic attack (TIA), and cerebral infarction without residual deficits Z86.73 Presence of other specified devices Z97. 8 Pressure ulcer of left heel, unspecified stage L89.629 Unspecified severe protein-calorie malnu trition E43
[2024-09-17] MEDS: cefEPime HCl/D5W 2 GM/50 ML PIGGYBACK IV (10:37)
--- NOTE | 2024-09-17 11:43 | PC.NURSE ---
Addendum entered by Allyssa Price RN 09/17/24 11:43: 74-year-old male with a past medical history of CKD, anemia, prostate cancer, CVA with residual hemiplegia, chronic contractures of the extremities, and chronic indwelling Madden, longterm resident, presented to the hospital via EMS from [facility]. Per EMS, patient was found unresponsive. EMS noted to the patient to be febrile, hypoxic and tachycardic. Upon arrival, patient hypotensive with sbp in the 50's and tachy in the 130's. IVF's initiated and IV tylenol given. Patient responsive to painful stimuli. Noted to be tachypneic with resp rate in the 30's. Abdomen firm, sl distended with hypoactive bowel sounds. Patient with a chronic madden and severe ventral erosion noted. Scant UO noted. Bladder scanner obtained and 530cc of urine noted. Attempted to manipulate the catheter and urine oozing via the urethra. Urine noted to the alicia, purulent with foul odor. Attempted to irrigate without success and madden replaced with madden sensing catheter. Blood work attempted multiple times without success secondary to persistent hypotension. 1st set of blood cultures obtained prior to initiated of abx therapy. Dr. Trammell notified and right femoral TLC placed without dificulty and remaining blood work obtained and sent. Patient tolerated procedure well. Patient continues with persistent hypotension and provider spoke with the daughter (healthcare proxy) and decision made to implement [employer] status. Family at this bedside. Original Note: Medical History Chronic constipation Hyperlipidemia Abnormal EKG HTN (hypertension) Prostate cancer Bowel obstruction
[2024-09-17 11:44] LABS: Hematocrit 23.9 % (42.0-52.0); Hemoglobin 8.0 g/dl (14.0-18.0); Mean Corpuscular HGB Conc 33.5 g/dl (31.0-36.0); Mean Corpuscular Hemoglobin 26.9 pg (27.0-33.0); Mean Corpuscular Volume 80.5 fL (80.0-98.0); NRBC Abs Auto 0.000 X10*3/uL (0.0-0.012); NRBC Pct Auto 0.0 /100WBC (0.0-0.2); Platelet Count 230 X10*3/uL (160-400); Red Blood Count 2.97 X10*6/uL (4.60-5.80)
[2024-09-17 12:04] LABS: Neutrophils Percent Manual 66 % (45-73)
[2024-09-17 12:07] LABS: Atypical Lymphs Percent Manual 1 % (0-6); Band Neutrophils Percent 28 % (3-5); Dohle Bodies PRESENT; Metamyelocytes Percent 2 %; Monocytes Percent Manual 3 % (2-11); RBC Morphology NOTED; Toxic Vacuolation PRESENT
[2024-09-17 12:09] LABS: Acanthocytes 1+ (0-2) /OIF; Microcytosis 1+ (5-14) /OIF
[2024-09-17 12:10] LABS: Hypochromasia 1+ (5-14) /OIF; Large Platelet PRESENT
[2024-09-17 12:11] LABS: Alanine Aminotransferase 68 U/L (0-40); Albumin Level 2.7 g/dL (3.5-5.0); Alkaline Phosphatase 133 U/L (39-117); Anion Gap 16 (12-20); Aspartate Amino Transferase 66 U/L (5-37); Atypical Lymph Absolute Manual 0.3 x10*3/uL; Blood Urea Nitrogen 65 mg/dL (9-16); Calcium 9.2 mg/dL (8.4-10.2); Carbon Dioxide 24 mmol/L (22-29); Chloride 107 mmol/L (96-108); Creatinine Clr Calc Pharmacy 15.4; Estimated Glomerular Filt Rate 20; Magnesium 1.4 mg/dL (1.6-2.6); Metamyelocytes Absolute 0.7 X10*3/uL; Monocytes Absolute Manual 1.0 X10*3/uL (0.1-1.2); Neutrophils Absolute Manual 32.0 X10*3/uL (2.0-8.3); Potassium 4.4 mmol/L (3.3-5.1); Sodium 143 mmol/L (135-145); Total Protein 5.6 g/dL (6.5-8.0); White Blood Count 34.0 X10*3/uL (4.8-10.8)
[2024-09-17 12:18] LABS: Resp Syncy Virus RNA Qual PCR NEGATIVE (Negative); SARS COV2 PCR INHOUSE NEGATIVE (Negative)
[2024-09-17 13:38] LABS: Reflex Lactate? Lactic Acid Added
--- NOTE | 2024-09-17 13:43 | MHC.CM.PN ---
CM RECEIVED CONSULT FROM ED PROVIDER, PT VICE CHAIRMAN, CM METW /DTR AND PLAN WILL BE FOR PT TO RETURN TO [facility] ON VICE CHAIRMAN W/[facility] REACHING OUT TO DTR FOR INFORMATIONAL TOMORROW 09/18, [facility] FOR BLS TRANSPORT
--- NOTE | 2024-09-17 14:51 | PC.NURSE ---
Right femoral TLC removed.
[2024-09-17] MEDS: Morphine Sulfate Oral Sol 10 MG/5 ML SOLUTION 5 MG PO (15:08)
== END 2024-09-17 16:47 ==
PROVIDERS: Registered Nurse Emergency; Emergency Provider Emergency Medicine Emergency Medical Services
DX: R50.9 Fever, unspecified (principal); I95.9 Hypotension, unspecified; I10 Essential (primary) hypertension; I69.354 Hemiplegia and hemiparesis following cerebral infarction affecting left non-dominant side; N40.1 Benign prostatic hyperplasia with lower urinary tract symptoms; N13.9 Obstructive and reflux uropathy, unspecified; F03.90 Unspecified dementia, unspecified severity, without behavioral disturbance, psychotic disturbance, mood disturbance, and anxiety; D64.9 Anemia, unspecified; E78.5 Hyperlipidemia, unspecified; R13.10 Dysphagia, unspecified; N18.9 Chronic kidney disease, unspecified; Z79.82 Long term (current) use of aspirin; K59.09 Other constipation; R94.31 Abnormal electrocardiogram [ECG] [EKG]
CPT/HCPCS: 71045; 80053; 83605; 83735; 85007; 85027; 87040; 87077; 87186; 87205; 87637; 93005; 96361; 96374; 99285; 99291; J0131; J0692; J7120

== ENCOUNTER → 2024-09-17 09:42 | Outpatient (BNV) | payer MEDICARE, SELFPAY | PROVIDERS: Emergency Provider Emergency Medicine Emergency Medical Services; Visit Provider Internal Medicine Cardiovascular Disease | DX: R00.0 Tachycardia, unspecified (principal); I45.4 Nonspecific intraventricular block | CPT/HCPCS: 93010 ==

== ENCOUNTER → 2024-09-17 09:44 | Outpatient (BNV) | payer MEDICARE, SELFPAY | PROVIDERS: Emergency Provider Emergency Medicine Emergency Medical Services; Visit Provider Nuclear Medicine | DX: R50.9 Fever, unspecified (principal) | CPT/HCPCS: 71045 ==